=== PATIENT | male | born 1950 | race Caucasian/White ===

== ENCOUNTER → 2019-08-02 09:50 | Outpatient (CLI) | payer BC, SELFPAY ==
[2019-08-01 11:22] VITALS: BMI 37.2
[2019-08-02 12:14] LABS: Absolute Lymphocyte Count 2.91 X10^3/uL (0.83-4.51); Absolute Neutrophil Count 5.3 X10^3/uL (2.0-7.7); Basophil# 0.05 X10^3/uL; Basophil% 0.5 % (0-1); Eosinophil# 0.12 X10^3/uL; Eosinophils% 1.2 % (0-5); Hematocrit 46.9 % (40-54); Hemoglobin 15.9 g/dL (13.0-16.5); Lymphocyte # 2.91 X10^3/ul (4.0); Lymphocyte % 30.2 % (19-41); Mean Corp Hgb Conc 33.9 g/dL (32-36); Mean Corpuscular Hgb 31.3 pg (27.0-32.0); Mean Corpuscular Volume 92.3 fL (80-94); Mean Platelet Vol. 11.3 fl (6.2-12.0); Monocyte# 1.07 X10^3/uL; Monocyte% 11.1 % (0-10); NRBC Flagged by Analyzer 0 % (0-5); Neutrophil # 5.34 X10^3/uL (2.7-7.7); Neutrophil % 55.3 % (47-70); Platelet Count 327 K/mm3 (150-450); RBC Distribution Width CV 12.7 % (11.6-14.6); RBC Distribution Width SD 43.6 fl (35.1-43.9); Red Blood Count 5.08 M/mm3 (4.6-6.2); White Blood Count 9.7 K/mm3 (4.4-11.0)
[2019-08-02 12:47] LABS: AST(SGOT) 37 U/L (15-37); Alanine Aminotransfer ALT/SGPT 79 U/L (16-61); Albumin, Serum 3.6 g/dL (3.2-5.0); Alkaline Phosphatase 51 U/L (45-117); Anion Gap 6 (5-15); BUN 22 mg/dL (7-18); BUN/Creat Ratio 20.6 RATIO (10-20); Calcium,Total 8.5 mg/dL (8.5-10.1); Chloride 107 mmol/L (98-107); Cholesterol 168 mg/dL (200); Creatinine, Serum 1.07 mg/dL (0.70-1.30); EST Glomerular Filtration Rate 73 mL/min (>60); Est Glom Filt Rate - Afr Amer 88 mL/min (>60); Globulin 3.6 g/dL (2.2-4.2); Glucose 96 mg/dL (74-106); High Density Lipoprotein 48 mg/dL; PSA,Total - Annual Screen 1.67 ng/mL (0.00-4.00); Potassium 3.6 mmol/L (3.5-5.1); Protein, Total 7.2 g/dL (6.4-8.2); Sodium Level 138 mmol/L (136-145); Triglycerides 159 mg/dL; Very Low Density Lipoprotein 32 mg/dL (5-40)
== END ==
PROVIDERS: PCP Internal Medicine; Visit Provider Internal Medicine
DX: Z00.00 Encounter for general adult medical examination without abnormal findings (principal); I10 Essential (primary) hypertension
CPT/HCPCS: 36415; 80053; 80061; 84153; 85025; G0103

== ENCOUNTER → 2020-02-06 | Outpatient (CLI) | payer BC, SELFPAY ==
[2020-02-06 10:46] VITALS: BMI 37.2
[2020-02-06 15:52] LABS: BUN 14 mg/dL (7-18); Creatinine, Serum 1.08 mg/dL (0.70-1.30); EST Glomerular Filtration Rate 72 mL/min (>60); Glucose 87 mg/dL (74-106)
[2020-02-06 15:53] LABS: Anion Gap 7 (5-15); Calcium,Total 9.1 mg/dL (8.5-10.1); Chloride 104 mmol/L (98-107); Est Glom Filt Rate - Afr Amer 87 mL/min (>60); Potassium 4.1 mmol/L (3.5-5.1); Sodium Level 138 mmol/L (136-145)
== END | disposition home or self-care (01) ==
LOC: BIMLAB 11:43
PROVIDERS: PCP Internal Medicine; Referring Provider Internal Medicine; Visit Provider Internal Medicine
DX: I10 Essential (primary) hypertension (principal)
CPT/HCPCS: 36415; 80048

== ENCOUNTER → 2020-07-01 14:06 | Outpatient (CLI) | payer MEDICARE, SELFPAY ==
[2020-07-01 13:53] VITALS: BMI 37.2
--- NOTE | 2020-07-01 14:28 | RAD_ITS ---
STUDY: X-RAY - RIGHT ANKLE REASON FOR EXAM: Male, 70 years old. CHRONIC PAIN, GETTING WORSE RECENTLY, NKI TECHNIQUE: 3 view(s) of the ankle. COMPARISON: None. FINDINGS: There is evidence of a old avulsion fracture of the lateral and medial malleoli. Normal medial and lateral malleoli. Normal tibiotalar articulation and ankle mortise. A spur is seen at the insertion of the Achilles tendon. The visualized subtalar, talonavicular, calcaneocuboid and tarsal articulations are normal. The soft tissue structures are unremarkable. RAD/Ankle min 3 Views IMPRESSION: Old avulsion fractures involving the medial and lateral malleoli. Calcaneal spur. Electronically Signed: [place], at 15:53 EDT , Service support ,
[2020-07-01 17:10] LABS: Erythrocyte Sedimentation Rate 13 mm/hr (0-20)
[2020-07-01 17:20] LABS: Anion Gap 7 (5-15); BUN 19 mg/dL (7-18); BUN/Creat Ratio 15.1 RATIO (10-20); Chloride 105 mmol/L (98-107); Creatinine, Serum 1.26 mg/dL (0.70-1.30); EST Glomerular Filtration Rate 60 mL/min (>60); Est Glom Filt Rate - Afr Amer 73 mL/min (>60); Glucose 120 mg/dL (74-106); Rheumatoid Factor < 10.0 IU/mL (<15); Sodium Level 140 mmol/L (136-145)
== END ==
PROVIDERS: PCP Internal Medicine; Referring Provider Internal Medicine; Visit Provider Internal Medicine
DX: M19.90 Unspecified osteoarthritis, unspecified site (principal); I10 Essential (primary) hypertension
CPT/HCPCS: 36415; 73610; 80048; 85652; 86140; 86431

== ENCOUNTER → 2020-08-01 | Outpatient (CLI) | payer MEDICARE, SELFPAY ==
[2020-07-01 13:53] VITALS: BMI 37.2
--- NOTE | 2020-08-01 | LES_PTH ---
PATIENT: BEBA GOLDSMITH LOC: [facility] U#:[id number] AGE/SX: 70/M ROOM: RE08/01/[address]: Dr. Desean Arboleda MD : 1950 BED: DIS: 08/01/2020 SPEC #: [id number] RECD: 08/01/20 15:04 STATUS: CJ PAMELA #: [id number] CHOLO: 08/01/20 00:[address]: Desean Arboleda DEPT: SURGICAL PATHOLOGY RECD BY: Raúl Kaur ENTERED: 08/02/20 12:40 SP TYPE: Lesion OTHR DR: Dr. Cate Sapp MD Tissues: Skin of eyelid, NOS Procedures: Surgery Specimen Level IV HEADER OPERATION: RUL lesion PRE-OP DIAGNOSIS: Right upper eyelid lesion TISSUE SUBMITTED: Right upper eyelid lesion MICROSCOPIC DIAGNOSIS Lesion of right upper eyelid, biopsy: Polypoid seborrheic keratosis, inflamed. Focal actinic change. AM:tamara 08/05/20 MICROSCOPIC DESCRIPTION Slides are reviewed. GROSS DESCRIPTION Received in fixative is one container labeled with the patient's name and designated RUL. The specimen consists of a piece of arteaga-white skin measuring 0.9 x 0.4 x 0.1 cm. Also present in the container is a piece of arteaga-white skin measuring 0.3 x 0.3 x 0.1 cm. The larger piece is inked. The entire specimen is submitted in one cassette. / JOSH:tamara 08/02/20 TC:5 CPT: 08852
== END | disposition home or self-care (01) ==
LOC: LABSPEC 15:12
PROVIDERS: PCP Internal Medicine; Referring Provider Ophthalmology; Visit Provider Ophthalmology
DX: L82.0 Inflamed seborrheic keratosis (principal)
CPT/HCPCS: 88305

== ENCOUNTER → 2020-08-14 14:15 | Outpatient (CLI) | payer BC, SELFPAY ==
[2020-08-14 13:20] VITALS: BMI 37.2
--- NOTE | 2020-08-14 14:43 | RAD_ITS ---
STUDY: X-RAY - RIGHT HAND, ATTENTION THIRD FINGER REASON FOR EXAM: Male, 70 years old. SWELLING RT MIDDLE PIP JOINT, USED TO BE PAINFUL BUT PAIN RESOLVED, STILL SWELLING MAKING IT DIFFICULT TO RECREATIONAL THERAPIST TECHNIQUE: 3 view(s) of the finger were obtained. COMPARISON: None. FINDINGS: Normal metacarpal head. Normal metacarpophalangeal joint. Normal proximal phalanx. Normal middle phalanx. Normal distal phalanx. There is severe degenerative arthrosis of the proximal interphalangeal joint. There is moderate degenerative arthrosis of the distal interphalangeal joint.p There is nonspecific soft tissue swelling. RAD/Finger(s) Min 2 Views IMPRESSION: Degenerative arthrosis of the PIP and DIP joints. No demonstrated fracture, dislocation, or destructive osseous lesion. Electronically Signed: Mike Zamora MD at 3:23 EDT , Service support ,
[2020-08-14 15:40] LABS: Absolute Lymphocyte Count 1.64 X10^3/uL (0.83-4.51); Absolute Neutrophil Count 5.2 X10^3/uL (2.0-7.7); Basophil# 0.04 X10^3/uL; Basophil% 0.5 % (0-1); Eosinophil# 0.14 X10^3/uL; Eosinophils% 1.8 % (0-5); Hematocrit 43.6 % (40-54); Hemoglobin 14.5 g/dL (13.0-16.5); Lymphocyte # 1.64 X10^3/ul (4.0); Lymphocyte % 20.5 % (19-41); Mean Corp Hgb Conc 33.3 g/dL (32-36); Mean Corpuscular Hgb 31.2 pg (27.0-32.0); Mean Corpuscular Volume 93.8 fL (80-94); Mean Platelet Vol. 11.9 fl (6.2-12.0); Monocyte# 0.94 X10^3/uL; Monocyte% 11.8 % (0-10); NRBC Flagged by Analyzer 0 % (0-5); Neutrophil # 5.19 X10^3/uL (2.7-7.7); Neutrophil % 64.9 % (47-70); Platelet Count 287 K/mm3 (150-450); RBC Distribution Width CV 13.4 % (11.6-14.6); RBC Distribution Width SD 45.6 fl (35.1-43.9); Red Blood Count 4.65 M/mm3 (4.6-6.2)
[2020-08-14 16:34] LABS: AST(SGOT) 29 U/L (15-37); Alanine Aminotransfer ALT/SGPT 39 U/L (16-61); Albumin, Serum 3.8 g/dL (3.2-5.0); Alkaline Phosphatase 50 U/L (45-117); Bilirubin, Direct 0.18 mg/dL (0.00-0.30); Cholesterol 186 mg/dL (200); Globulin 3.6 g/dL (2.2-4.2); High Density Lipoprotein 54 mg/dL; PSA,Total - Annual Screen 2.18 ng/mL (0.00-4.00); Protein, Total 7.4 g/dL (6.4-8.2); Triglycerides 220 mg/dL; Very Low Density Lipoprotein 44 mg/dL (5-40)
== END ==
PROVIDERS: PCP Internal Medicine; Referring Provider Internal Medicine; Visit Provider Internal Medicine
DX: Z00.00 Encounter for general adult medical examination without abnormal findings (principal); M79.89 Other specified soft tissue disorders; I10 Essential (primary) hypertension; M19.90 Unspecified osteoarthritis, unspecified site
CPT/HCPCS: 36415; 73140; 80061; 80076; 84153; 85025; G0103

== ENCOUNTER → 2020-11-13 14:35 | Outpatient (CLI) | payer BC, SELFPAY ==
--- NOTE | 2020-11-13 14:36 | RAD_ITS ---
STUDY: X-RAY - RIGHT KNEE REASON FOR EXAM: Male, 70 years old. bilateral knee pain TECHNIQUE: 4 view(s) of the knee. Weight-bearing COMPARISON: None. FINDINGS: Normal visualized distal femur. Normal visualized proximal tibia and fibula. Normal proximal tibiofibular articulation. There is mild degenerative arthrosis of the medial femorotibial compartment. There is mild degenerative arthrosis of the lateral femorotibial compartment. There is mild degenerative arthrosis of the patellofemoral articulation. There is no demonstrated joint effusion. Moderate medial compartment joint space height loss The soft tissue structures are unremarkable. RAD/Knee 4 or More Views IMPRESSION: Degenerative arthrosis. Electronically Signed: Zach Ling DO at 10:41 EST Tel , Service support ,
--- NOTE | 2020-11-13 14:36 | RAD_ITS ---
STUDY: X-RAY - RIGHT SHOULDER REASON FOR EXAM: Male, 70 years old. pain in right shoulder TECHNIQUE: 4 view(s) of the shoulder. COMPARISON: None. FINDINGS: Normal glenohumeral articulation. There is degenerative arthrosis of the acromioclavicular joint without inferior osseous spur formation. Normal acromion. Normal humeral head and visualized proximal humerus. The soft tissue structures are unremarkable. Normal visualized pulmonary apex. RAD/Shoulder min 2 Views IMPRESSION: Mild AC joint degenerative changes Electronically Signed: Zach Ling DO at 9:25 EST Tel , Service support ,
--- NOTE | 2020-11-13 14:40 | RAD_ITS ---
STUDY: X-RAY - LEFT KNEE REASON FOR EXAM: Male, 70 years old. bilateral knee pain TECHNIQUE: 4 view(s) of the knee. Weight-bearing COMPARISON: None. FINDINGS: Normal visualized distal femur. Normal visualized proximal tibia and fibula. Normal proximal tibiofibular articulation. There is moderate degenerative arthrosis of the medial femorotibial compartment with moderate joint space narrowing. There is moderate degenerative arthrosis of the lateral femorotibial compartment with moderate joint space narrowing. There is mild degenerative arthrosis of the patellofemoral articulation. There is no demonstrated joint effusion. Moderate medial compartment joint space height loss The soft tissue structures are unremarkable. RAD/Knee 4 or More Views IMPRESSION: Degenerative arthrosis. Electronically Signed: Zach Ling DO at 9:27 EST Tel , Service support ,
== END ==
PROVIDERS: PCP Internal Medicine; Referring Provider Internal Medicine; Visit Provider Internal Medicine
DX: M25.561 Pain in right knee (principal); M25.562 Pain in left knee; M25.511 Pain in right shoulder
CPT/HCPCS: 73030; 73564

== ENCOUNTER 2021-01-20 16:54 | Outpatient (RCR) | payer MEDICARE, SELFPAY ==
[2020-11-29 11:16] VITALS: BMI 36.9
== END 2021-01-20 23:59 ==
LOC: IMMUN 16:54
PROVIDERS: PCP Internal Medicine; Referring Provider Family Medicine; Visit Provider Family Medicine
DX: Z23 Encounter for immunization (principal)
CPT/HCPCS: 0011A; 0012A

== ENCOUNTER → 2021-05-12 14:33 | Outpatient (CLI) | payer BC, SELFPAY ==
[2021-05-12 13:23] VITALS: BMI 36.9
[2021-05-12 17:28] LABS: Anion Gap 10 (5-15); BUN 22 mg/dL (7-18); BUN/Creat Ratio 14.2 RATIO (10-20); Calcium,Total 9.1 mg/dL (8.5-10.1); Chloride 104 mmol/L (98-107); Creatinine, Serum 1.55 mg/dL (0.70-1.30); EST Glomerular Filtration Rate 47 mL/min (>60); Est Glom Filt Rate - Afr Amer 57 mL/min (>60); Glucose 94 mg/dL (74-106); Sodium Level 139 mmol/L (136-145)
== END ==
PROVIDERS: PCP Internal Medicine; Visit Provider Internal Medicine
DX: I10 Essential (primary) hypertension (principal)
CPT/HCPCS: 36415; 80048

== ENCOUNTER → 2021-06-09 11:55 | Outpatient (CLI) | payer BC, SELFPAY ==
[2021-05-12 13:23] VITALS: BMI 36.9
[2021-06-09 15:39] LABS: Anion Gap 5 (5-15); BUN 18 mg/dL (7-18); BUN/Creat Ratio 16.2 RATIO (10-20); Calcium,Total 8.9 mg/dL (8.5-10.1); Chloride 107 mmol/L (98-107); Creatinine, Serum 1.11 mg/dL (0.70-1.30); EST Glomerular Filtration Rate 70 mL/min (>60); Est Glom Filt Rate - Afr Amer 84 mL/min (>60); Glucose 99 mg/dL (74-106); Potassium 3.9 mmol/L (3.5-5.1); Sodium Level 138 mmol/L (136-145)
== END ==
PROVIDERS: PCP Internal Medicine; Visit Provider Internal Medicine
DX: I10 Essential (primary) hypertension (principal); N17.9 Acute kidney failure, unspecified
CPT/HCPCS: 36415; 80048

== ENCOUNTER 2021-12-29 15:32 | Outpatient (CLI) | payer MEDICARE, SELFPAY ==
[2021-12-29 16:56] LABS: Absolute Lymphocyte Count 2.22 X10^3/uL (0.83-4.51); Absolute Neutrophil Count 4.7 X10^3/uL (2.0-7.7); Basophil# 0.05 X10^3/uL; Basophil% 0.6 % (0-1); Eosinophil# 0.38 X10^3/uL; Eosinophils% 4.5 % (0-5); Hematocrit 41.6 % (40-54); Hemoglobin 13.9 g/dL (13.0-16.5); Lymphocyte # 2.22 X10^3/ul (0.83-4.51); Lymphocyte % 26.5 % (19-41); Mean Corp Hgb Conc 33.4 g/dL (32-36); Mean Corpuscular Hgb 30.7 pg (27.0-32.0); Mean Corpuscular Volume 91.8 fL (80-94); Mean Platelet Vol. 12.3 fl (6.2-12.0); Monocyte# 0.99 X10^3/uL; Monocyte% 11.8 % (0-10); NRBC Flagged by Analyzer 0 % (0-5); Neutrophil # 4.71 X10^3/uL (2.7-7.7); Neutrophil % 56.4 % (47-70); Platelet Count 275 K/mm3 (150-450); RBC Distribution Width CV 13.1 % (11.6-14.6); RBC Distribution Width SD 44.8 fl (35.1-43.9); Red Blood Count 4.53 M/mm3 (4.6-6.2); White Blood Count 8.4 K/mm3 (4.4-11.0)
[2021-12-29 17:01] LABS: ALB/GLOB Ratio 1.1 RATIO (0.9-2.4); AST(SGOT) 25 U/L (15-37); Alanine Aminotransfer ALT/SGPT 37 U/L (16-61); Albumin, Serum 3.9 g/dL (3.2-5.0); Alkaline Phosphatase 57 U/L (45-117); Anion Gap 6 (5-15); BUN 18 mg/dL (7-18); BUN/Creat Ratio 18.3 RATIO (10-20); Calcium,Total 8.9 mg/dL (8.5-10.1); Chloride 106 mmol/L (98-107); Cholesterol 150 mg/dL (200); Creatinine, Serum 0.98 mg/dL (0.70-1.30); EST Glomerular Filtration Rate 80 mL/min (>60); Est Glom Filt Rate - Afr Amer 97 mL/min (>60); Globulin 3.5 g/dL (2.2-4.2); Glucose 94 mg/dL (74-106); High Density Lipoprotein 44 mg/dL; Potassium 3.7 mmol/L (3.5-5.1); Protein, Total 7.4 g/dL (6.4-8.2); Sodium Level 138 mmol/L (136-145); Triglycerides 110 mg/dL; Very Low Density Lipoprotein 22 mg/dL (5-40)
== END 2021-12-29 23:59 | disposition home or self-care (01) ==
PROVIDERS: PCP Internal Medicine; Referring Provider Internal Medicine; Visit Provider Internal Medicine
DX: I10 Essential (primary) hypertension (principal)
CPT/HCPCS: 36415; 80053; 80061; 85025

== ENCOUNTER → 2022-06-29 | Outpatient (CLI) | payer MEDICARE, SELFPAY ==
[2022-06-29 16:57] LABS: Anion Gap 7 (5-15); BUN 18 mg/dL (7-18); Calcium,Total 8.8 mg/dL (8.5-10.1); Chloride 108 mmol/L (98-107); Creatinine, Serum 1.06 mg/dL (0.70-1.30); EST Glomerular Filtration Rate 73 mL/min (>60); Est Glom Filt Rate - Afr Amer 89 mL/min (>60); Glucose 97 mg/dL (74-106); Potassium 3.8 mmol/L (3.5-5.1); Sodium Level 141 mmol/L (136-145)
== END | disposition home or self-care (01) ==
LOC: BIMLAB 14:01
PROVIDERS: PCP Internal Medicine; Referring Provider Internal Medicine; Visit Provider Internal Medicine
DX: I10 Essential (primary) hypertension (principal)
CPT/HCPCS: 36415; 80048

== ENCOUNTER → 2023-06-30 | Outpatient (CLI) | payer MEDICARE, SELFPAY ==
[2023-06-30 16:27] LABS: Absolute Neutrophil Count 4.9 X10^3/uL (2.0-7.7); Basophil# 0.04 X10^3/uL; Basophil% 0.5 % (0-1); Eosinophil# 0.16 X10^3/uL; Hematocrit 44.2 % (40-54); Hemoglobin 14.7 g/dL (13.0-16.5); Lymphocyte % 23.6 % (19-41); Mean Corp Hgb Conc 33.3 g/dL (32-36); Mean Corpuscular Hgb 31.6 pg (27.0-32.0); Mean Corpuscular Volume 95.1 fL (80-94); Monocyte# 0.99 X10^3/uL; Monocyte% 12.3 % (0-10); NRBC Flagged by Analyzer 0 % (0-5); Platelet Count 264 K/mm3 (150-450); RBC Distribution Width CV 13.4 % (11.6-14.6); RBC Distribution Width SD 47.1 fl (35.1-43.9); Red Blood Count 4.65 M/mm3 (4.6-6.2)
[2023-06-30 16:49] LABS: AST(SGOT) 30 U/L (15-37); Alanine Aminotransfer ALT/SGPT 49 U/L (16-61); Albumin, Serum 3.6 g/dL (3.2-5.0); Alkaline Phosphatase 53 U/L (45-117); Anion Gap 7 (5-15); BUN 17 mg/dL (7-18); BUN/Creat Ratio 14.4 RATIO (10-20); Calcium,Total 9.2 mg/dL (8.5-10.1); Chloride 107 mmol/L (98-107); Cholesterol 184 mg/dL (200); Creatinine, Serum 1.18 mg/dL (0.70-1.30); EST Glomerular Filtration Rate 64 mL/min (>60); Est Glom Filt Rate - Afr Amer 78 mL/min (>60); Globulin 3.7 g/dL (2.2-4.2); Glucose 110 mg/dL (74-106); High Density Lipoprotein 53 mg/dL; PSA,Total - Annual Screen 5.07 ng/mL (0.00-4.00); Potassium 3.8 mmol/L (3.5-5.1); Protein, Total 7.3 g/dL (6.4-8.2); Sodium Level 140 mmol/L (136-145); Triglycerides 277 mg/dL; Very Low Density Lipoprotein 55 mg/dL (5-40)
== END | disposition home or self-care (01) ==
LOC: BIMLAB 15:10
PROVIDERS: PCP Internal Medicine; Referring Provider Internal Medicine; Visit Provider Internal Medicine
DX: I10 Essential (primary) hypertension (principal); R35.1 Nocturia
CPT/HCPCS: 36415; 80053; 80061; 84153; 85025; G0103

== ENCOUNTER → 2023-07-08 | Outpatient (CLI) | payer MEDICARE, SELFPAY ==
--- NOTE | 2023-07-08 14:26 | STRESSREP ---
Stress Test Report Pharmacologic/Lexiscan sestamibi myocardial perfusion stress test. Indication; 73-year-old patient with abnormal EKG showing evidence of right bundle branch block. Patient had history of osteoarthritis Hypertension has been on medical treatment with JUAN inhibitor lisinopril. Has a previous evaluation by stress echocardiogram 20 years ago Lexiscan sestamibi to evaluate for myocardial ischemia. Stress protocol: Resting EKG demonstrates. Normal sinus rhythm. Right bundle branch block. Nonspecific T wave inversion noted in the anterior lead V2 V3. 0.4 mg of regadenoson was infused per usual protocol followed by rapid intravenous saline flush injection continuous EKG monitoring was performed. The maximum heart rate attained was 82 bpm which was 55% of maximum predicted heart . Stress EKG showed[, no significant change from the resting EKG, with maximum heart rate of 82 bpm. Arrhythmia: Single episode of PVC Symptoms: Patient had no symptoms of chest pain Blood pressure at rest: 138/64 mmHg blood pressure at the end of stress: 148/62 mmHg Myocardial perfusion protocol. 14.7 mCi ]of Technetium 99m Sestamibi was injected at rest. [ 0.4 mg ]of Regadenoson was infused per usual protocol peak infusion 45 mCi ]of Technetium 99m sestamibi was injected. Stress images were obtained stress and rest images were reconstructed and compared in the short axis vertical and horizontal long axis. Gated images were also obtained Perfusion SPECT analysis: Review of the images demonstrate normal uptake of sestamibi at rest, post stress images demonstrate similar uptake of sestamibi to the resting images, homogeneous tracer uptake With no evidence of reversible myocardial ischemia. Inferior attenuation artifact is noted. Gated SPECT analysis: The gated ejection fraction is 66%. Delete that Normal left ventricular wall motion and normal LV systolic function Conclusion: Negative Lexiscan sestamibi myocardial perfusion study for reversible myocardial ischemia Normal LV systolic function. Vipin Villegas MD,FACC,[facility]
== END | disposition home or self-care (01) ==
LOC: CVS 06:07
PROVIDERS: PCP Internal Medicine; Referring Provider Internal Medicine; Visit Provider Internal Medicine
DX: R94.31 Abnormal electrocardiogram [ECG] [EKG] (principal)
CPT/HCPCS: 78452; 93017; A9500; A4216; J2785

== ENCOUNTER → 2023-09-21 | Outpatient (CLI) | payer MEDICARE, SELFPAY ==
[2023-09-23 13:07] LABS: PSA, Free 0.56 ng/mL; PSA, Free % 29.6 % (.)
== END | disposition home or self-care (01) ==
LOC: LAB 14:17
PROVIDERS: PCP Internal Medicine; Referring Provider Nurse Practitioner; Visit Provider Nurse Practitioner
DX: R97.20 Elevated prostate specific antigen [PSA] (principal)
CPT/HCPCS: 36415; 84153; 84154

== ENCOUNTER → 2024-04-06 | Outpatient (CLI) | payer MEDICARE, SELFPAY ==
[2024-04-06 16:54] LABS: Anion Gap 6 (5-15); BUN 23 mg/dL (7-18); BUN/Creat Ratio 19.5 RATIO (10-20); Calcium,Total 9.2 mg/dL (8.5-10.1); Chloride 108 mmol/L (98-107); Creatinine, Serum 1.18 mg/dL (0.70-1.30); EST Glomerular Filtration Rate 64 mL/min (>60); Est Glom Filt Rate - Afr Amer 78 mL/min (>60); Glucose 98 mg/dL (74-106); Potassium 4.1 mmol/L (3.5-5.1); Sodium Level 140 mmol/L (136-145)
== END | disposition home or self-care (01) ==
LOC: BIMLAB 15:12
PROVIDERS: PCP Internal Medicine; Visit Provider Internal Medicine
DX: I10 Essential (primary) hypertension (principal)
CPT/HCPCS: 36415; 80048

== ENCOUNTER → 2024-10-09 | Outpatient (CLI) | payer MEDICARE, SELFPAY ==
[2024-10-09 15:27] LABS: Absolute Lymphocyte Count 1.79 X10^3/uL (0.83-4.51); Absolute Neutrophil Count 5.7 X10^3/uL (2.0-7.7); Basophil# 0.04 X10^3/uL; Basophil% 0.5 % (0-1); Eosinophil# 0.15 X10^3/uL; Eosinophils% 1.7 % (0-5); Hematocrit 44.6 % (40-54); Hemoglobin 15.3 g/dL (13.0-16.5); Lymphocyte # 1.79 X10^3/ul (0.83-4.51); Lymphocyte % 20.7 % (19-41); Mean Corp Hgb Conc 34.3 g/dL (32-36); Mean Corpuscular Hgb 31.7 pg (27.0-32.0); Mean Corpuscular Volume 92.3 fL (80-94); Mean Platelet Vol. 11.9 fl (6.2-12.0); Monocyte# 0.89 X10^3/uL; Monocyte% 10.3 % (0-10); NRBC Flagged by Analyzer 0 % (0-5); Neutrophil # 5.74 X10^3/uL (2.7-7.7); Neutrophil % 66.5 % (47-70); Platelet Count 266 K/mm3 (150-450); RBC Distribution Width CV 12.7 % (11.6-14.6); RBC Distribution Width SD 43.3 fl (35.1-43.9); Red Blood Count 4.83 M/mm3 (4.6-6.2); White Blood Count 8.6 K/mm3 (4.4-11.0)
[2024-10-09 15:49] LABS: ALB/GLOB Ratio 1.1 RATIO (0.9-2.4); AST(SGOT) 29 U/L (15-37); Alanine Aminotransfer ALT/SGPT 41 U/L (16-61); Albumin, Serum 3.8 g/dL (3.2-5.0); Alkaline Phosphatase 51 U/L (45-117); Anion Gap 5 (5-15); BUN 20 mg/dL (7-18); BUN/Creat Ratio 16.7 RATIO (10-20); Calcium,Total 8.9 mg/dL (8.5-10.1); Chloride 106 mmol/L (98-107); Cholesterol 188 mg/dL (200); EST Glomerular Filtration Rate 63 mL/min (>60); Est Glom Filt Rate - Afr Amer 76 mL/min (>60); Globulin 3.5 g/dL (2.2-4.2); Glucose 119 mg/dL (74-106); High Density Lipoprotein 62 mg/dL; PSA,Total - Annual Screen 3.82 ng/mL (0.00-4.00); Potassium 3.7 mmol/L (3.5-5.1); Protein, Total 7.3 g/dL (6.4-8.2); Sodium Level 137 mmol/L (136-145); Triglycerides 225 mg/dL; Very Low Density Lipoprotein 45 mg/dL (5-40)
== END | disposition home or self-care (01) ==
LOC: BIMLAB 14:13
PROVIDERS: PCP Internal Medicine; Visit Provider Internal Medicine
DX: I10 Essential (primary) hypertension (principal); N40.0 Benign prostatic hyperplasia without lower urinary tract symptoms; Z12.5 Encounter for screening for malignant neoplasm of prostate
CPT/HCPCS: 36415; 80053; 80061; 84153; 85025; G0103

== ENCOUNTER → 2024-12-04 | Outpatient (CLI) | payer MEDICARE, SELFPAY | END | disposition home or self-care (01) | LOC: MTLAB 15:55 | PROVIDERS: PCP Internal Medicine; Referring Provider Orthopaedic Surgery; Visit Provider Orthopaedic Surgery | DX: M25.50 Pain in unspecified joint (principal) | CPT/HCPCS: 36415; 84550 ==

== ENCOUNTER → 2025-01-29 | Outpatient (CLI) | payer MEDICARE, SELFPAY ==
[2025-01-29 16:47] LABS: Absolute Lymphocyte Count 1.93 X10^3/uL (0.83-4.51); Absolute Neutrophil Count 5.2 X10^3/uL (2.0-7.7); Basophil# 0.03 X10^3/uL; Basophil% 0.4 % (0-1); Eosinophil# 0.14 X10^3/uL; Eosinophils% 1.7 % (0-5); Hematocrit 39.3 % (40-54); Hemoglobin 13.1 g/dL (13.0-16.5); Lymphocyte # 1.93 X10^3/ul (0.83-4.51); Lymphocyte % 22.9 % (19-41); Mean Corp Hgb Conc 33.3 g/dL (32-36); Mean Corpuscular Volume 89.9 fL (80-94); Monocyte# 1.05 X10^3/uL; Monocyte% 12.4 % (0-10); NRBC Flagged by Analyzer 0 % (0-5); Neutrophil # 5.21 X10^3/uL (2.7-7.7); Neutrophil % 61.7 % (47-70); Platelet Count 477 K/mm3 (150-450); RBC Distribution Width CV 13.2 % (11.6-14.6); RBC Distribution Width SD 43.9 fl (35.1-43.9); Red Blood Count 4.37 M/mm3 (4.6-6.2); White Blood Count 8.4 K/mm3 (4.4-11.0)
[2025-01-29 19:58] LABS: ALB/GLOB Ratio 1.2 RATIO (0.9-2.4); AST(SGOT) 29 U/L (<=37); Alanine Aminotransfer ALT/SGPT 39 U/L (<=46); Alkaline Phosphatase 54 U/L (40-129); Anion Gap 14 (5-15); BUN 17 mg/dL (4-19); BUN/Creat Ratio 15.3 RATIO (10-20); Calcium,Total 9.5 mg/dL (7.6-11.0); Carbon Dioxide 21.2 mmol/L (21.0-32.0); Chloride 103 mmol/L (98-108); EST Glomerular Filtration Rate 71 (>60); Globulin 3.3 g/dL (2.2-4.2); Glucose 103 mg/dL (70-99); Potassium 4.1 mmol/L (3.3-5.1); Protein, Total 7.3 g/dL (5.9-8.4); Sodium Level 138 mmol/L (133-145); Total Bilirubin 0.29 mg/dL (0.00-1.30)
== END | disposition home or self-care (01) ==
LOC: BIMLAB 14:54
PROVIDERS: PCP Internal Medicine; Referring Provider Internal Medicine; Visit Provider Internal Medicine
DX: Z01.818 Encounter for other preprocedural examination (principal); M10.9 Gout, unspecified
CPT/HCPCS: 36415; 80053; 84550; 85025

== ENCOUNTER → 2025-02-05 | Outpatient (CLI) | payer MEDICARE, SELFPAY ==
--- NOTE | 2025-02-05 12:22 | CT_ITS ---
PROCEDURE: EXTREMITY LOWER WITHOUT CONTRA 02/05/2025 REASON FOR EXAM: TEMPLATING FOR RIGHT TKA TECHNIQUE: Axial extremity without intravenous contrast. Coronal and Sagittal reconstruction series were provided. CONTRAST: No contrast. One or more dose reduction techniques were used (e.g., Automated exposure control, adjustment of the mA and/or kV according to patient size, use of iterative reconstruction technique). RADIATION DOSE SUMMARY: CTDlvol: 14 mGy DLP: 1378.57 mGycm COMPARISON: None. FINDINGS: Bones: No evidence of fracture. Joints: Imaging of the right hip joint was obtained. Mild joint space narrowing. Imaging of the right knee was obtained. Marked degree of joint space narrowing with degenerative spurring of the medial femoral condyle and medial tibial plateau with sub cortical cystic changes. Moderate degree of joint space narrowing of the patellofemoral joint with degenerative changes. Soft Tissues: Minimal joint effusion. CT/Extremity Lower without Contra IMPRESSION: Marked degree of joint space narrowing and osteoarthritis of the medial knee teodora int with subchondral cystic changes and degenerative spur formation. Reading Location: [place] [id number]
== END | disposition home or self-care (01) ==
LOC: CT 12:21
PROVIDERS: PCP Internal Medicine; Referring Provider Orthopaedic Surgery; Visit Provider Orthopaedic Surgery
DX: M17.11 Unilateral primary osteoarthritis, right knee (principal)
CPT/HCPCS: 73700

== ENCOUNTER → 2025-02-22 | Outpatient (CLI) | payer MEDICARE, SELFPAY ==
[2025-02-22 16:54] LABS: Uric Acid 7.9 mg/dL (3.5-7.2)
[2025-02-22 17:09] LABS: International Normalized Ratio 1.1; Prothrombin Time (Protime)PT. 14.3 SECONDS (11.7-14.9)
[2025-02-22 17:10] LABS: Partial Thromboplast Time 31.2 Seconds (24.1-36.2)
[2025-02-24 05:07] LABS: Fructosamine 229 umol/L (0-285)
== END | disposition home or self-care (01) ==
LOC: MTLAB 11:46
PROVIDERS: Nurse Practitioner Family; Student in an Organized Health Care Education/Training Program; PCP Internal Medicine; Referring Provider Orthopaedic Surgery; Visit Provider Orthopaedic Surgery
DX: Z01.818 Encounter for other preprocedural examination (principal); M25.561 Pain in right knee; M17.11 Unilateral primary osteoarthritis, right knee; M10.9 Gout, unspecified
CPT/HCPCS: 82985; 83036; 83735; 84550; 85610; 85730; 86850; 86900; 86901; 87081

== ENCOUNTER 2025-03-06 05:59 | Day surgery (SDC) | payer MEDICARE, SELFPAY ==
--- NOTE | 2025-02-06 15:41 | PAT.ANE_ITS ---
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 When Was Last Pacemaker Check QUESTION #4 FULL TEXT: You/Your Family Experience fever (hyperthermia) with Anesthesia Last Oral Intake Last Oral intake: Last Oral Intake NPO since Meds taken in AM with sips of water? Meds patient instructed to take am of surgery PONV PONV - technical services analyst: PONV - technical services analyst Female No 02/06/25 15:11 HX of Motion Sickness No 02/06/25 15:11 HX of N/V After Surgery No 02/06/25 15:11 Non-Smoker Yes 02/06/25 15:11 Duration of Surgery greater Yes 02/06/25 15:11 than 60 minutes Number of Risk Factors 2 02/06/25 15:11 PONV Score Moderate Risk 02/06/25 15:11 Height & Weight Height & Weight: Anesthesia: Height & Weight Height 5 ft 9 in 12/04/24 14:37 Respiratory Assessment Respiratory Assessment - technical services analyst: Respiratory Tract Infection Hx - technical services analyst Hx Respiratory Tract Infection No 02/06/25 15:11 STOP Sleep Apnea STOP Sleep Apnea - technical services analyst: STOP Sleep Apnea - technical services analyst Hx Hypertension Yes: CONTROLLED WITH MED 02/06/25 15:11 Hx Sleep Apnea No 02/06/25 15:11 CPAP BIPAP Do you snore loudly (louder Yes 02/06/25 15:11 than talking or can be heard Do you often feel tired/ No 02/06/25 15:11 fatigued/ sleepy during daytime? Has anyone observed you stop No 02/06/25 15:11 breathing during sleep? STOP Results Positive 02/06/25 15:11 QUESTION #5 FULL TEXT : Do you snore loudly (louder than talking or can be heard through closed doors)? 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 Specify any problems Hx of Preganancy in last 3 N/A 02/06/25 15:11 Months Nurse Filling Out Transfusion DSCHRIBER 02/06/25 15:11 & Questions: Date: 02/06/25 02/06/25 15:11 Time: 15:14 02/06/25 15:11 Patient unable to answer at this time (ie. confused, unrespo /Reproduction History /Reproductive History - technical services analyst: /Reproductive Hx- technical services analyst Hx Now No 02/06/25 15:11 Gestational Age (in weeks): EDC: Hx Hx Para Hx Section SAB No 02/06/25 15:11 [facility] Medical History (Updated 02/06/25 @ 15:25 by Diana Bailey) Loss of hearing Wears glasses Alcohol use History of steroid therapy Arthritis Gout High cholesterol Injury of head and neck History of ulceration Heartburn Non-smoker History of pain when walking History of edema History of stress test Elevated PSA BPH (benign prostatic hyperplasia) Bilateral primary osteoarthritis of knee ESTRELLA (acute kidney injury) benign growth on prostate History of squamous cell carcinoma History of basal cell carcinoma History of kidney stones Hypertension Arthritis Seasonal allergies Home Medications ?Medication ?Instructions ?Recorded ?Last Taken ?Type aspirin 81 mg tablet,delayed 81 mg PO DAILY 02/21/19 0 02/02/25 History release cetirizine 10 mg tablet (Zyrtec) 5 mg PO DAILY PRN all ergy symptoms 02/21/19 Unknown History multivitamin 1 cap PO DAILY 02/21/19 Unkn own History biotin 1 mg capsule 1 mg PO DAILY 06/29/22 Unkno wn History glucosamine-chondroitin 250 mg-200 2 tab PO BID 02/02/25 History mg tablet (Osteo Bi-Flex) lisinopril 20 2 tab PO DAILY #180 tabs Unknown Rx mg-hydrochlorothiazide 12.5 mg tablet doxazosin 4 mg tablet 4 mg PO BID 3 months #180 ta bs 09/04/24 Unknown Rx indomethacin 50 mg capsule 50 mg PO TID PRN Joint pain #90 01/26/25 Unknown Rx caps amlodipine 10 mg tablet 10 mg PO QHS 02/06/25 Unknow n History Allergy/AdvReac Type Severity Reaction Status Date / Time doxycycline Allergy Severe swelling Verified 02/06/25 15:02 latex Allergy Intermediate rash Verified 02/06/25 15:02 Family History Father Hypertension Brother Hypertension CVA (cerebral vascular accident) Mother Hypertension CVA (cerebral vascular accident) Grandmother Cancer Surgical History (Updated 02/06/25 @ 15:25 by Diana Bailey) Hx of colonoscopy Hx of wisdom tooth extraction History of bilateral cataract extraction Hx of tonsillectomy Social History Smoking Status: Never smoker alcohol intake: current alcohol intake frequency: a few times a month substance use type: does not use what type of physical activity do you participate in: walking frequency: daily Audit: Pertinent Findings Pertinent Findings EKG Perinent findings: SR with RBBB with left axis -bifasicular block Stress test pertinent findings: Stress test negative in 2022 Current Visit Impressions Current Visit Impressions: Internal medicine physician has cleared this patient, EKG changes are apparently consistent. They were evaluated with a stress test Recommendation Anesthesia Recommendation Anesthesia recommendation: OPTIMIZED for anesthesia
[2025-03-06] VITALS (8 sets, daily range): BP systolic 109–146; BP diastolic 46–60; PULSE 80–91; RESP 10–20; TEMP 36.2–36.9; O2SAT 94–98; BMI 32.6
[2025-03-06] MEDS: Acetaminophen 500 MG Tablet 1000 MG PO ×2 (06:48→14:39)
[2025-03-06] MEDS: Gabapentin 600 MG Tablet PO (06:48)
[2025-03-06] MEDS: Scopolamine 1mg/72hr Patch 1 PATCH TD (06:49)
[2025-03-06] MEDS: Celecoxib 200 MG Capsule 400 MG PO (06:49)
[2025-03-06 06:51] LABS: Bedside Glucose 166 mg/dL (74-106)
[2025-03-06] MEDS: 0.9% Normal Saline (1000mL) 1,000 ML 15 ML IV (06:54)
[2025-03-06] MEDS: Magnesium 1 GM over 15 mins IV (06:55)
--- NOTE | 2025-03-06 07:13 | PCM.HP.BLA ---
History and Physical Date of Admission: 03/06/25 [facility] [address] [place] [address] OFFICE VISIT Date of Service: 01/24/25 MR#: [id number] Acct: [id number] Name: BEBA GOLDSMITH Rep #: [id number] : 1950 Provider: Dr. Loyd Watters, DO Age/Sex: 74/M Location: [facility] [place] Status: Signed Intake Vital Signs 12/04/2513:37 Height 5 ft 9 in Weight: 250 lb 2 oz BMI 36.9 Intake Visit Reasons: BILATERAL KNEES Allergies doxycycline Allergy (Severe, Verified 01/24/25 12:57) swelling latex Allergy (Intermediate, Verified 01/24/25 12:57) rash Medications ?Medication ?Instructions ?Recorded ?Confirmed ?Type aspirin 81 mg tablet,delayed 81 mg PO DAILY 02/21/19 01/24/25 History release cetirizine 10 mg tablet (Zyrtec) 5 mg PO DAILY PRN 02/21/19 01/24/25 History glucosamine HCl 1,500 mg tablet 1,500 mg PO DAILY 02/21/19 01/24/25 History multivitamin 1 cap PO DAILY 02/21/19 01/24/25 History biotin 1 mg capsule 1 mg PO DAILY 06/29/22 01/24/25 History glucosamine-chondroitin 250 mg-200 2 tab PO BID 06/29/22 01/24/25 History mg tablet (Osteo Bi-Flex) lisinopril 20 2 tab PO DAILY #180 tabs 04/18/24 01/24/25 Rx mg-hydrochlorothiazide 12.5 mg tablet doxazosin 4 mg tablet 4 mg PO BID 3 months #180 tabs 09/04/24 01/24/25 Rx amlodipine 10 mg tablet 10 mg PO DAILY #90 tabs 10/03/24 01/24/25 Rx indomethacin 50 mg capsule 50 mg PO BID 12/04/24 01/24/25 History meloxicam 15 mg tablet 15 mg PO DAILY PRN pain #90 tabs 12/18/24 01/24/25 Rx Have you fallen in the past year?: No PFSH Medical History Elevated PSA BPH (benign prostatic hyperplasia) Abnormal EKG Flu vaccine need Osteoarthritis Bilateral primary osteoarthritis of knee Health care maintenance ESTRELLA (acute kidney injury) Hearing loss in right ear benign growth on prostate History of squamous cell carcinoma History of basal cell carcinoma History of kidney stones Hypertension History of pneumonia Gout Arthritis Seasonal allergies Surgical History History of bilateral cataract extraction Hx of tonsillectomy Family History Father HypertensionBrother Hypertension CVA (cerebral vascular accident)Mother Hypertension CVA (cerebral vascular accident)Grandmother Cancer Social History Smoking Status: Never smoker alcohol intake: current alcohol intake frequency: a few times a month substance use type: does not use what type of physical activity do you participate in: walking frequency: daily HPI BILATERAL KNEES Details: This documentation accurately reflects the service provided and the decisions made by me, Dr. Loyd Watters, DO 01/24/25 1000. Part of today?s visit was documented by Maame HULL, acting as scribe. BEBA GOLDSMITH is a 74 year old M here today for bilateral knee pain. He was having swelling in the left leg but that has came down now. He would like to discuss knee replacement as well. He would like to do both at the same time. The tenderness,swelling and redness in the left index finger has went away. He has been taking the indomethacin. He cannot state that 1 knee is worse than the other he does feel is affecting his quality of life he cannot walk in a grocery store without having significant discomfort. 12/04/2024:74 year old M here today for bilateral knees. Patient notes that he has had knee pain for about 5 years with his pain worsening recently. Patient complains of pain over his anterior knee. He denies any known injury. He states that he has bilateral leg swelling. He has popping and clicking in his knees which is a uncomfortable. He has knee instability. Patient is using a walker to ambulate. Patient notes that he is taking ibuprofen daily for pain. He denies any recent xrays, injections, bracing, or physical therapy. No fevers or chills. He does have a history of gout. He has stiffness of his left index finger with swelling and redness. He denies any recent injury although hurt himself with a nail gun over a year ago. He notes his pain started about 5 days ago. He does have indomethacin at home from prior gout attacks. Plan:Educated the patient about the anatomy of the knee and etiology of his pain. Spoke with him about having severe osteoarthritis of his bilateral knee. Explained his options- steroid injection, viscosupplementation injections, medrol dose mauricio, physical therapy, bracing, total knee arthroplasty. Recommended the patient get some lab work for uric acid as he likely is having a gout flare. Gave the patient a paper regarding the gout diet. If he has high uric acid, he will need to talk with his PCP about a possible medications including allopurinol. He may continue to take the indomethacin in addition to the Medrol Dosepak. If he has knee injections, he would be unable to have a total knee arthroplasty for 3 months. Spoke with him about the different bracing- knee sleeve vs a more supportive brace. Follow up on an as needed basis or sooner if pain, swelling, numbness or associated symptoms, or concerns develop. All questions answered. Patient in agreement of plan. 10/01/2021 visit:here today for continued bilateral knee pain. Patient states that he is doing better today due to a recent cataract surgery and limiting his activities. He states that he been very active and his pain has been increasing. He has an injection 11/29/20 which was helpful for until June. He has pain over his anterior knee. Patient has popping and clicking, and grinding. Patient would like to discuss repeat injection. Plan:Patient may get repeat injections every 3 months as needed. Spoke with him about viscosupplementation injections if he would like to try those. Explained that he may be a candidate for a total knee arthroplasty if the injections stop being helpful. Patient may take an anti-inflammatory the day and a few days following a day where he is doing many activities. Bilateral knee steroid injection given. Ortho Exam General General: Yes no acute distress and Yes well groomed Neurologic: Yes alert and Yes oriented x3 Psychologic: Yes reasonable and appropriate Right Knee Skin/Wound: Yes CDI, No erythema, No ecchymosis and No swelling Knee ROM: Yes ROM-Extension -20 to 0 and Yes ROM-Flexion 0-140 (112) Examination: No Med jt line tenderness, No Lat jt line tenderness, Yes Pain with flexion and No Pain with extention Stability: NML: Anterior Drawer, NML: Posterior Drawer, NML: Valgus 0, NML: Valgus 30 (3mm medial gapping), NML: Varus 0 and NML: Varus 30 Patella Translation: 1 Patella Grind: Yes KNEE: varus deformity- slight. Left Knee Skin/Wound: Yes CDI, No ecchymosis, No erythema and No swelling Knee ROM: Yes ROM-Extension -20 to 0 (-4) and Yes ROM-Flexion 0-140 (105) Examination: No med jt line tenderness and No Lat jt line tenderness Stability: NML: Valgus 0, NML: Valgus 30 (3mm medial gapping), NML: Varus 0 and NML: Varus 30 Patella Translation: 1 KNEE: prominant tibial tubercle bilateral Head: Normocephalic Atraumatic Chest: symmetrical rise, non-labored breathing, no audible wheeze Abdomen: no guarding, non-rigid Supplemental Info 12/04/2024 uric acid upper limit of normal 7.0 12/04/2024 x-ray left index finger: Punched-out lytic lesions(rat-bite erosions) multiple joints consistent with gout 12/04/2024 x-ray right knee: Advanced medial compartment osteoarthritis moderate patellofemoral 12/04/2024 x-ray left knee: advanced medial compartment osteoarthritis, mod/severe patellofemoral 11/13/2020 x-ray Right knee advanced medial compartment knee arthrosis, moderate to severe patellofemoral arthrosis 11/13/2020 xray left knee: Moderate patellofemoral arthrosis Moderate medial joint space narrowing and subchondral sclerosis Coding Level of Care Code Off vis,est,level 4 Diagnoses Primary osteoarthritis of left knee M17.12 Osteoarthritis type: primary Primary osteoarthritis of right knee M17.11 Osteoarthritis type: primary Gout M10.9 Gout site: knee Gout etiology: idiopathic Laterality: unspecified laterality Assessment and Plan Assessment and Plan (1) Left knee DJD: Status: Acute Qualifiers: Osteoarthritis type: primary Qualified Code(s): M17.12 - Unilateral primary osteoarthritis, left knee (2) Right knee DJD: Status: Acute Qualifiers: Osteoarthritis type: primary Qualified Code(s): M17.11 - Unilateral primary osteoarthritis, right knee (3) Gout: Status: Chronic Qualifiers: Gout site: knee Gout etiology: idiopathic Laterality: unspecified laterality Plan Patient is here today for continued bilateral knee pain. He would like to discuss knee replacement surgery, I counseled him a would not recommend doing bilateral knee replacements at the same time considering he has gout and oftentimes pain is much more significant in patients with gout. risks, benefits and alternatives of surgery reviewed including but not limited to bleeding, infection, nerve, artery and/or tissue damage, fracture, VTE, mechanical feel of the knee, continued pain, stiffness and expected post-operative course.?I spoke with patient that he will need to physical therapy after surgery. Patient should not take any NSAIDS, indomethacin, or tumeric 7 days prior surgery. He should stop taking the fish oil and other herbal supplements 3 weeks before surgery. He should try to avoid any dental work for 3 months after surgery. I informed patient about the Iovera procedure that we can do before surgery and he would like to proceed with the procedure if his insurance approves it. Patient also wishes to proceed with knee replacement for the right knee first he would like to do the iovera as well. Tentative surgery date February 20, 2025 same-day surgery Follow up for Iovera procedure or sooner if pain, swelling, numbness or associated symptoms, or concerns develop. All questions answered. Patient in agreement of plan. Clinical Quality Measures Falls Risk Screening/Assistive Devices Have you fallen in the past year?: No 01/24/25 1342 <Electronically signed by Loyd Watters DO> Date Loyd Watters DO I have examined the patient and the H&P has been reviewed. There are no clinical changes since date of exam.
--- NOTE | 2025-03-06 07:38 | PCM.PRE.AN2 ---
ASA Classification* ASA Classification ASA Classification: 2 (HTN) Assessment & Plan Anesthesia* Anesthesia Assessment Anesthesia Assessment: Discussed sedation and/or anesthesia options, risks, benefits, and alternatives with patient/parents/legal guardian/POA. Questions invited. The patient/parents/legal guardian/POA seems to understand and agrees to proceed with anesthesia plan. Reviewed the physical assessment, medical history, allergy history and patient home medications list prior to surgery/procedure/anesthetic and documented any changes. Performed airway and anesthesia risk assessments. Anesthesia Type Anesthesia Type: Spinal and Block History Source History Obtained from:: Patient Anesthesia Focused Assessment* Oxygen Delivery Method: Room Air Airway Assessment Mouth opens: 2 cm Mallampati Score: II Teeth Condition: Intact Neck Range of motion (ROM): Full ROM Focused Labs Anesthesia Preop lab: CBC WBC 8.4 K/mm3 (4.4-11.0) 01/29/25 14:55 01/29/25 RBC 4.37 M/mm3 (4.6-6.2) L 01/29/25 14:55 01/29/25 Hgb 13.1 g/dL (13.0-16.5) 01/29/25 14:55 01/29/25 Hct 39.3 % (40-54) L 01/29/25 14:55 01/29/25 Plt Count 477 K/mm3 (150-450) H 01/29/25 14:55 01/29/25 CHEMISTRY Potassium 4.1 mmol/L (3.3-5.1) 01/29/25 14:55 01/29/25 Sodium 138 mmol/L (133-145) 01/29/25 14:55 01/29/25 Magnesium 2.0 mg/dL (1.5-2.2) 02/22/25 11:49 02/22/25 BUN 17 mg/dL (4-19) 01/29/25 14:55 01/29/25 Creatinine 1.10 mg/dL (0.70-1.20) 01/29/25 14:55 01/29/25 Glucose 103 mg/dL (70-99) H 01/29/25 14:55 01/29/25 POC Glucose 166 mg/dL (74-106) H 03/06/25 06:32 03/06/25 COAG PT 14.3 SECONDS (11.7-14.9) 02/22/25 11:50 02/22/25 Pre-Assessment Diagnosis/Proposed Procedure Planned Operative Procedure(s): RIGHT TOTAL KNEE ARTHROPLASTY Anesthesia History 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 When Was Last Pacemaker Check QUESTION #4 FULL TEXT: You/Your Family Experience fever (hyperthermia) with Anesthesia Any additional information?: No Last Oral Intake Last Oral intake: Last Oral Intake NPO since 05:30 03/06/25 06:35 Meds taken in AM with sips of Yes 03/06/25 06:35 water? Meds patient instructed to allpopurinol 03/06/25 06:35 take am of surgery doxazosin Any additional information?: No PONV PONV - street roller engineer: PONV - street roller engineer Female No 02/06/25 15:11 HX of Motion Sickness No 02/06/25 15:11 HX of N/V After Surgery No 02/06/25 15:11 Non-Smoker Yes 02/06/25 15:11 Duration of Surgery greater Yes 02/06/25 15:11 than 60 minutes Number of Risk Factors 2 02/06/25 15:11 PONV Score Moderate Risk 02/06/25 15:11 Any additional information?: No Height & Weight Height & Weight: Anesthesia: Height & Weight Height 5 ft 9 in 03/06/25 06:35 Weight: 100.244 kg 03/06/25 06:35 Body Mass Index (BMI) 32.6 03/06/25 06:35 Respiratory Assessment Respiratory Assessment - street roller engineer: Respiratory Tract Infection Hx - street roller engineer Hx Respiratory Tract Infection No 02/06/25 15:11 Any additional information?: No STOP Sleep Apnea STOP Sleep Apnea - street roller engineer: STOP Sleep Apnea - street roller engineer Hx Hypertension Yes: CONTROLLED WITH MED 02/06/25 15:11 Hx Sleep Apnea No 02/06/25 15:11 CPAP BIPAP Do you snore loudly (louder Yes 02/06/25 15:11 than talking or can be heard Do you often feel tired/ No 02/06/25 15:11 fatigued/ sleepy during daytime? Has anyone observed you stop No 02/06/25 15:11 breathing during sleep? STOP Results Positive 02/06/25 15:11 QUESTION #5 FULL TEXT : Do you snore loudly (louder than talking or can be heard through closed doors)? 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 Specify any problems Hx of Preganancy in last 3 N/A 02/06/25 15:11 Months Nurse Filling Out Transfusion DSCHRIBER 02/06/25 15:11 & Questions: Date: 02/06/25 02/06/25 15:11 Time: 15:14 02/06/25 15:11 Patient unable to answer at this time (ie. confused, unrespo Any additional information?: No /Reproduction History /Reproductive History - street roller engineer: /Reproductive Hx- street roller engineer Hx Now No 02/06/25 15:11 Gestational Age (in weeks): EDC: Hx Hx Para Hx Section SAB No 02/06/25 15:11 Any additional information?: No Active Medications Active Medications: Current Medications Generic Name Dose Route Start Last Admin Trade Name Freq PRN Reason Stop Dose Admin Acetaminophen 1,000 mg 03/06/25 11:00 03/06/25 06:48 Acetaminophen 500 Mg Tablet PO 03/06/25 11:01 1,000 mg X1 ONE Administration Celecoxib 400 mg 03/06/25 11:00 03/06/25 06:49 Celecoxib 200 Mg Capsule PO 03/06/25 11:01 400 mg X1 ONE Administration Dexamethasone Sodium Phosphate 10 mg 03/06/25 11:00 Dexamethasone 10 Mg/Ml Vial IV 03/06/25 11:01 X1 ONE Gabapentin 600 mg 03/06/25 11:00 03/06/25 06:48 Gabapentin 600 Mg Tablet PO 03/06/25 11:01 600 mg X1 ONE Administration Cefazolin Sodium 2 gm/ N/A 20 mls @ 400 mls/hr 03/06/25 11:00 IV 03/06/25 11:02 PREOP ONE Tranexamic Acid 1,000 mg/ 110 mls @ 660 mls/hr 03/06/25 11:00 Sodium Chloride IV 03/06/25 11:09 X1 ONE Tranexamic Acid 1,000 mg/ 110 mls @ 660 mls/hr 03/06/25 11:00 Sodium Chloride IV 03/06/25 11:09 X1 ONE Lactated Ringer's 1,000 mls @ 125 mls/hr 03/06/25 11:00 IV 03/06/25 18:59 .Q8H ZORAIDA Magnesium Sulfate 1 gm/ 102 mls @ 408 mls/hr 03/06/25 11:00 03/06/25 06:55 Dextrose IV 03/06/25 11:14 408 mls/hr X1 ONE Administration Sodium Chloride 1,000 mls @ 15 mls/hr 03/06/25 06:10 03/06/25 06:54 IV 15 mls/hr .Q48H ZORAIDA Administration Insulin Human Lispro 1 - 6 unit 03/06/25 11:00 Insulin Lispro 100 Unit/Ml Insuln.Pen SC 03/06/25 18:00 Q4H PRN PRN BG>/= 180, SEE PROTOCOL Protocol Scopolamine HBr 1 patch 03/06/25 11:00 03/06/25 06:49 Scopolamine 1mg/72hr Patch TD 03/06/25 11:01 1 patch X1 ONE Administration PFSH Medical History (Updated 02/28/25 @ 15:[address] Cate Sapp MD) Bilateral foot pain Loss of hearing Wears glasses Alcohol use History of steroid therapy Arthritis Gout High cholesterol Injury of head and neck History of ulceration Heartburn Non-smoker History of pain when walking History of edema History of stress test Elevated PSA BPH (benign prostatic hyperplasia) Bilateral primary osteoarthritis of knee ESTRELLA (acute kidney injury) benign growth on prostate History of squamous cell carcinoma History of basal cell carcinoma History of kidney stones Hypertension Arthritis Seasonal allergies Home Medications ?Medication ?Instructions ?Recorded ?Last Taken ?Type lisinopril 20 2 tab PO DAILY #180 tabs 04/18/24 03/05/25 Rx mg-hydrochlorothiazide 12.5 mg tablet doxazosin 4 mg tablet 4 mg PO BID 3 months #180 tabs 09/04/24 03/06/25 Rx allopurinol 100 mg tablet 100 mg PO QDAY #30 tabs 02/07/25 03/06/25 Rx amlodipine 10 mg tablet 10 mg PO QHS #90 tabs 02/23/25 03/05/25 Rx meloxicam 15 mg tablet 15 mg PO DAILY PRN pain 03/06/25 02/27/25 History Allergy/AdvReac Type Severity Reaction Status Date / Time doxycycline Allergy Severe swelling Verified 02/28/25 14:42 latex Allergy Intermediate rash Verified 02/28/25 14:42 Family History Father Hypertension Brother Hypertension CVA (cerebral vascular accident) Mother Hypertension CVA (cerebral vascular accident) Grandmother Cancer no significant family history Surgical History Hx of colonoscopy Hx of wisdom tooth extraction History of bilateral cataract extraction Hx of tonsillectomy no surgical history Social History Smoking Status: Never smoker alcohol intake: current alcohol intake frequency: a few times a month substance use type: does not use what type of physical activity do you participate in: walking frequency: daily Prior Cardiac Testing/Procedures Prior Cardiac Testing/Procedures: Stress Test Review of Systems (Anesthesia) ROS Narrative System reviewed and no additional complaints, except as documented. Physical Exam Const alert, oriented x3 and average body habitus Orientation / Consciousness: awake HEENT dentition normal Neck full ROM Resp normal respiratory effort Auscultation: clear to auscultation bilaterally Cardio regular rate, regular rhythm and no murmurs Neuro oriented x3 and moves all extremities
--- NOTE | 2025-03-06 08:00 | KNEE_PTH ---
PATIENT: BEBA GOLDSMITH LOC: [facility] [place] U#:[id number] AGE/SX: 74/M ROOM: RE03/06/[address]: Dr. Loyd Watters DO : 1950 BED: DIS: 03/06/2025 SPEC #: [id number] RECD: 03/06/25 13:42 STATUS: CJ REYury #: [id number] CHOLO: 03/06/25 08:[address]: Loyd Watters DEPT: SURGICAL PATHOLOGY RECD BY: Timi Krishna ENTERED: 03/06/25 13:42 SP TYPE: TOTAL KNEE OTHR DR: Dr. Cate Sapp MD Tissues: A - Knee, NOS Procedures: Decalcification bone/plaque Surgery Specimen Level IV HEADER OPERATION: ERAS, right total knee replacement robotic arm assisted PRE-OP DIAGNOSIS: Right knee degenerative joint disease TISSUE SUBMITTED: A- Right knee bone MICROSCOPIC DIAGNOSIS A. Right knee, degenerative joint disease, arthroplasty: * Benign cartilage and bone with degenerative changes MICROSCOPIC DESCRIPTION Slides are reviewed. GROSS DESCRIPTION A. Received in formalin in a container labeled with the patient's name, date of , and right knee bone are multiple arteaga, firm, and irregular fragments of bone with minimal soft tissue measuring 10.5 x 8.5 x 4.3 cm in aggregate. The specimen consists of, but is not limited to, medial/lateral condyle and tibial plateau. The resection margins are smooth, and firm and the cortical surfaces are pitted and granular with smooth eburnation. Sectioning reveals firm surfaces. Media Marketing Coordinator sections submitted in A1 following decalcification. [facility] 03/09/2025 CPT:79433,83095
[2025-03-06] MEDS: Cefazolin 2 GM in Syringe 10 ML IV ×2 (08:12→14:40)
[2025-03-06] MEDS: TXA 1000mg in NS100 100ml (IVPB at Incision) 660 MG IV (08:15)
[2025-03-06] MEDS: dexAMETHasone 10 MG/ML Vial IV (08:20)
[2025-03-06] MEDS: TXA 1000mg in NS100 100ml (IVPB at Closure) 660 MG IV (08:47)
[2025-03-06] MEDS: Epinephrine (1 mg/ml) 1 MG/ML VIAL (09:43)
[2025-03-06] MEDS: 0.9% Normal Saline (Pres. free 10 ML Vial (09:43)
[2025-03-06] MEDS: dexAMETHasone 4 MG/ML Vial (09:43)
[2025-03-06] MEDS: Bupivacaine 0.5% PF 10 ML VIAL ×2 (09:43→09:45)
--- NOTE | 2025-03-06 10:41 | OP.PCM_ITS ---
Operative Report (Standard) Operative Information Date of Procedure: 03/06/25 Pre-Operative Diagnosis: Right knee DJD Post-Operative Diagnosis: Same Surgery/Procedure Performed: Right total knee arthroplasty general surgery physician assistant: Yes Fishing Captain: Juan Manuel Hoffman Tasks completed by psych assistant: Opening & closing Type of Anesthesia: Spinal RN Documented Start/Stop Times: Operation Date: 03/06/25 08:00 Case Time Into Pre-Op 03/06/25 06:07 Anesthesia Start 03/06/25 08:12 Into Room 03/06/25 08:12 Out of Pre-Op 03/06/25 08:12 Procedure Start 03/06/25 08:33 Procedure End 03/06/25 10:38 Anesthesia End 03/06/25 10:46 Out of Room 03/06/25 10:46 Procedure Start Time: 08:33 Procedure Stop Time: 10:38 Select all DRAINS/GRAFTS/IMPLANTS that apply: Prosthetic device Prosthetic device details: Obed triathlon hybrid press-fit femur cemented tibia and patella Estimated Blood Loss: 125 Specimen collected: Yes Description of specimen(s) removed: Bone Description of surgery: Preoperative diagnosis: 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 My physician contract administrative assistant was a vital part of this case. He was important in appropriate retraction during the case, and protection of soft tissues during procedure. His intimate knowledge of the case and my steps aided in safe and expedient completion of the procedure as well as appropriate position of the extremity during the case. He was also vital in assisting with closure under my direct supervision. Indication for procedure: This is a 74-year-old male with long standing degenerative joint disease and gout of the knee who has failed conservative treatment and wished to proceed with elective total knee arthroplasty. Risk benefits and alternatives were reviewed including; risk of bleeding, infection, nerve artery and tissue damage, continued pain, postoperative stiffness, venous thromboembolism, need for postoperative rehabilitation, mechanical feel to the knee, and expected postoperative course. The pre- operative CT and templating was performed with component sizing. Procedure: The patient was met in the preoperative holding area. The operative extremity was identified by both patient and physician and was marked. Patient was met by anesthesia. An adductor canal block was placed by anesthesia postoperatively the patient was brought back to the operating room on a wheeled cart and transferred to the operating table in the supine position. Anesthesia was started. A well-padded tourniquet was placed on the operative extremity. The patient was prepped and draped in the usual sterile fashion. A timeout was called to ensure the proper patient procedure and extremity were being contemplated. An esmarch was used to exsanguinate the extremity. The tourniquet was inflated. A 10 blade scalpel was used to make a midline incision down through the skin and subcutaneous tissue. Skin retractors placed. Bovie and Aquamantis were used to perform meticulous hemostasis. full-thickness flaps were elevated medial and lateral along the joint capsule. A deep blade scalpel was used to perform a medial parapatellar arthrotomy. The knee was brought to full extension. A bovie was used to release the soft tissues off the most proximal aspect of the medial tibial plateau, a three-quarter inch curved osteotome was also used in this process. The infrapatellar fat pad was excised. The suprapatellar fat pad was excised partially anteriorolateraly and portion the anterioromedial pad was elevated from the femur. At this point our intra- articular femoral array was placed at a 45 degree angle proximal and posterior to the medial epicondyle. femoral checkpoint was placed at this time. Our tibial array was placed partially intra incisional 1 stab incision was made for the inferior pin with a 15 blade scaple, and pins were placed and attached to the tibial array , tibial checkpoint was placed in the proximal tibial metaphysis. Tourniquet was let down. At this point registration catalan were taken throughout the knee . Once the knee was registered we then tensioned the medial and lateral ligaments in extension and 90 degrees of flexion. We then used these numbers to adjust our components within parameters to balance the knee in both flexion and extension once this was done on our monitor we then proceeded with using the robotic arm to make our tibial plateau cut, anterior and posterior chamfer and distal femur cuts. we removed the cut fragments with t he use of a bovie and Daisy, we did use a lamina occupational therapist assistant to insure we visualized and removed all posterior osteophytes and at this time also used the Aquamantis on the posterior joint capsule. we then trialed and achieved the desired plan with a well-balanced knee. we used the green probe to mitchell the corresponding tibial rotation based on our CT template. Lug holes were drilled in the femur the tibia preparation was completed with the appropriate sized base plate pinned based on previous rotation mitchell. An appropriate sized fin punch was used on the tibia , there was a cyst in the proximal medial tibial plateau which was curetted. the patella was prepared by first using a caliper to ensure sufficient bone stock and a patellar reamer to remove the desired amount of bone. lug holes drilled for an asymmetric poly. We then brought the knee through range of motion with excellent patellar tracking. We thoroughly irrigated the knee. Trial components were removed a posterior capsular i njection was preformed with our standard cocktail. In addition the aqua Mantis was also used to aid in hemostasis. Betadine rinse was allowed to sit and washed out completely. Components were cemented in place on the tibia excess cement was removed with a [place] elevator the femoral component was press-fit and the patellar component was also cemented and clamped we did hold the knee in extension until cemented hardened we did allow a Betadine rinse to sit for 5 minutes during this.. Aricept rinse was then used followed by several more liters of irrigation after it was allowed to sit. The joint capsule was closed with #1 Ethibond [id number] in the upper part of the arthrotomy and #1 Vicryl in the lower part of the arthrotomy. , Followed by 2-0 Vicryl in the subcutaneous tissues with elvin in the skin. Arrays and checkpoints were removed prior to closure all counts were correct stab incisions were closed with a staple standard dressing in the form of Mepilex AG for the main incision and a small Mepilex over the pin holes. Thigh-high VANESSA hose applied over top of dressing. Patient tolerated the procedure well and was directed to PACU in stable condition . There were no intraoperative complications. Surgical Findings: DJD varus deformity flexion contracture Complications Complications: No
--- NOTE | 2025-03-06 10:45 | EX.PCM.DISCH ---
Discharge Instructions Diet Discharge Diet: No restrictions (Gout dietary precautions) Activity Weight Bearing Status: Full weight bearing Keep extremity elevated above heart level: Operative Extremity Dressing / Incision Call your doctor if you observe: Shortness of breath and Chest pain Additional Dressing/Incision Instructions:: Ice and elevate lower extremities 2 weeks while not ambulating. Ambulation is encouraged. Weight bearing as tolerated. Use assistive devise for stability. Encourage FULL knee extension and flexion 1 time EVERY time you get up and down and MULTIPLE times per day. No showering until 72 hours after surgery. May begin showering postop day #3. Remove the dressing prior to shower and gently wash with warm water and antibacterial soap then pat dry and place abdominal pad (or plain gauze) and VANESSA hose over top. If you decide not to begin showering 72 hrs post operatively and wish to sponge bath only, then you may leave dressing undisturbed for up to 1 week, but must remove prior to first shower. Do not submerge for 3 weeks. If not showering daily after the initial dressing is removed you must clean incision and change dressing daily after the dressing comes off, must come off by 7 days postop. Do not allow animals near the incision area. Keep clean. Follow anti-coagulation recommendations as prescribed. Do not take any NSAIDs while on blood thinner. Do not take any additional narcotic pain medication other than what was prescribed on your surgery day without discussing with physician. Narcotic medication can be addictive. Do not drink alcohol while taking narcotics. Supplement narcotic prescription with acetaminophen 1000 mg 4 times a day. Start physical therapy. If you are not currently scheduled for physical therapy or you are unsure of appointment time please call office [facility] to arrange. Call Dr. Watters's office ) with any concerns. Follow Up Care Please Follow Up With: Loyd Watters DO When: 2 weeks Test Results: Test results from this visit will be discussed in further detail at your follow-up appointment, if applicable. Discharge Plan Admission Primary Reason for Your Visit: Right total knee arthroplasty Attending Provider: Loyd Watters Primary Care Provider: Cate Sapp Instructions Print Language: Beninese Discharge Orders/Prescriptions Prescriptions: New acetaminophen 500 mg tablet 1,000 mg PO Q6H Qty: 100 0RF cephalexin 500 mg capsule 1,000 mg PO Q8H Qty: 4 0RF Rx Instructions: Take 2 tabs before you go to bed and 2 tabs after 5 AM morning after surgery when you wake up Eliquis 2.5 mg tablet 2.5 mg PO BID Qty: 28 0RF Rx Instructions: Begin morning after surgery. oxycodone 5 mg tablet 5 - 10 mg PO Q4H PRN (Reason: pain) 7 Days Qty: 60 0RF Continued lisinopril-hydrochlorothiazide 20-12.5 mg tablet 2 tab PO DAILY Qty: 180 3RF doxazosin 4 mg tablet 4 mg PO BID 90 Days Qty: 180 3RF allopurinol 100 mg tablet 100 mg PO QDAY Qty: 30 1RF amlodipine 10 mg tablet 10 mg PO QHS Qty: 90 1RF Held meloxicam 15 mg tablet 15 mg PO DAILY PRN (Reason: pain) Hold Instructions: May resume after completion of blood thinner Referrals / Follow Up: Cate Sapp MD [Primary Care Provider] - Disposition Disposition (needs filled in before D/C Order can be placed): Home, Self Care
--- NOTE | 2025-03-06 11:00 | RAD_ITS ---
PROCEDURE: KNEE 1 OR 2 VIEWS 03/06/2025 REASON FOR EXAM: POSTOP PACU TECHNIQUE: 2 view(s) of the right knee FINDINGS: Status post right knee replacement with patellar resurfacing appears intact and anatomic. No fracture or dislocation. Soft tissue and intra-articular air with overlying skin elvin. Enthesopathic change at the anterior tuberosity and patella. RAD/Knee 1 or 2 Views IMPRESSION: Status post right knee replacement with patellar resurfacing appears intact and anatomic. Reading Location: [id number]
--- NOTE | 2025-03-06 12:27 | PCM.POST.ANE ---
Anesthesia: Postop Eval I Current Vital Signs Temperature: 98 F Pulse Rate: 89 Blood Pressure: 132/59 Respiratory Rate: 14 Pulse Ox: 98 Oxygen Delivery Method: Room Air Assessment Airway patent: Yes Spontaneous unlabored respirations: Yes Mental status: Awake and Calm nausea: No Vomiting: No Anesthesia Complication: No Fluid Hydration Crystalloid volume administer (ml): 1,500 Total IV fluid infused: 1,500 Progress Note Anesthesia document: Postop Eval 1 completed: Yes
[2025-03-06] MEDS: Ketorolac 30 MG/ML Syringe IV (13:17)
--- NOTE | 2025-03-06 16:23 | POSTOPAN2_ITS ---
Anesthesia Postop Eval I Sum Postop Eval Completion status Anesthesia document: Postop Eval 1 completed: Yes Anesthesia Postop Eval I Summary Anesthesia Postop Eval I Summary: Anesthesia Postop Eval I: Assessment Summary Airway patent Yes 03/06/25 12:27 INFORMATION SECURITY [email or web address] Spontaneous unlabored Yes 03/06/25 12:27 INFORMATION SECURITY [email or web address] respirations Mental status Awake,Calm 03/06/25 12:27 INFORMATION SECURITY [email or web address] nausea No 03/06/25 12:27 INFORMATION SECURITY [email or web address] Vomiting No 03/06/25 12:27 INFORMATION SECURITY [email or web address] Anesthesia Postop Eval I: Fluid Summary Crystalloid volume administer 1,500 03/06/25 12:27 INFORMATION SECURITY [email or web address] (ml) Colloids volume administered ( ml) Blood Product volume administered (ml) Total IV fluid infused 1,500 03/06/25 12:27 INFORMATION SECURITY [email or web address] Anesthesia Postop Eval I: Summary Notes Anesthesia Complication No 03/06/25 12:27 INFORMATION SECURITY [email or web address] Anesthesia Complication Comment: Post-operative progress note Anesthesia: Postop Eval II Evaluation Mental status: Awake and Calm Pain Level: 2 nausea: No Vomiting: No Complications Anesthesia Complication: No
--- NOTE | 2025-03-06 16:23 | PCM.POSTANE2 ---
Anesthesia Postop Eval I Sum Postop Eval Completion status Anesthesia document: Postop Eval 1 completed: Yes Anesthesia Postop Eval I Summary Anesthesia Postop Eval I Summary: Anesthesia Postop Eval I: Assessment Summary Airway patent Yes 03/06/25 12:27 MARKETING PRODUCTION [email or web address] Spontaneous unlabored Yes 03/06/25 12:27 MARKETING PRODUCTION [email or web address] respirations Mental status Awake,Calm 03/06/25 12:27 MARKETING PRODUCTION [email or web address] nausea No 03/06/25 12:27 MARKETING PRODUCTION [email or web address] Vomiting No 03/06/25 12:27 MARKETING PRODUCTION [email or web address] Anesthesia Postop Eval I: Fluid Summary Crystalloid volume administer 1,500 03/06/25 12:27 MARKETING PRODUCTION [email or web address] (ml) Colloids volume administered ( ml) Blood Product volume administered (ml) Total IV fluid infused 1,500 03/06/25 12:27 MARKETING PRODUCTION [email or web address] Anesthesia Postop Eval I: Summary Notes Anesthesia Complication No 03/06/25 12:27 MARKETING PRODUCTION [email or web address] Anesthesia Complication Comment: Post-operative progress note Anesthesia: Postop Eval II Evaluation Mental status: Awake and Calm Pain Level: 2 nausea: No Vomiting: No Complications Anesthesia Complication: No
== END 2025-03-06 15:03 | disposition home or self-care (01) ==
LOC: SDC 06:00 → AC 06:02
PROVIDERS: PCP Internal Medicine; Referring Provider Orthopaedic Surgery; Visit Provider Orthopaedic Surgery
PROC: 0SRC0JZ Replacement of Right Knee Joint with Synthetic Substitute, Open Approach (ICD-10-PCS; CPT 27447; principal; 2025-03-06 07:30)
DX: M17.0 Bilateral primary osteoarthritis of knee (principal); M10.069 Idiopathic gout, unspecified knee; M21.161 Varus deformity, not elsewhere classified, right knee; I10 Essential (primary) hypertension; Z79.1 Long term (current) use of non-steroidal anti-inflammatories (NSAID); Z79.82 Long term (current) use of aspirin; Z79.899 Other long term (current) drug therapy
CPT/HCPCS: 27447; 64448; 73560; 82962; 88305; 88311; 97161; C1776; A4216; J2405; J3475

== ENCOUNTER → 2025-04-09 | Outpatient (CLI) | payer MEDICARE, SELFPAY ==
[2025-04-09 17:32] LABS: Anion Gap 14 (5-15); BUN 13 mg/dL (4-19); BUN/Creat Ratio 13.7 RATIO (10-20); Calcium,Total 9.8 mg/dL (7.6-11.0); Carbon Dioxide 20.7 mmol/L (21.0-32.0); Chloride 101 mmol/L (98-108); Creatinine, Serum 0.94 mg/dL (0.70-1.20); EST Glomerular Filtration Rate 85 (>60); Glucose 90 mg/dL (70-99); Potassium 3.9 mmol/L (3.3-5.1); Sodium Level 137 mmol/L (133-145); Uric Acid 6.9 mg/dL (3.5-7.2)
== END | disposition home or self-care (01) ==
LOC: BIMLAB 14:29
PROVIDERS: PCP Internal Medicine; Referring Provider Internal Medicine; Visit Provider Internal Medicine
DX: I10 Essential (primary) hypertension (principal); M10.9 Gout, unspecified
CPT/HCPCS: 36415; 80048; 84550

== ENCOUNTER 2025-04-20 13:30 | Outpatient (RCR) | payer MEDICARE, SELFPAY ==
--- NOTE | 2025-03-12 09:28 | HP.PTEVAL_ITS ---
Patient's Visit Information Visit Information Visit Information: BEBA GOLDSMITH is a 74 year old M referred to Physical Therapy by Dr. Loyd Watters DO with a diagnosis of R TKA, DOS:03/06/25. Date of Evaluation: 03/09/25 Physical Therapist: Daljit Villela DPT Visit Plan Frequency: 3x /Week Duration: 6 Weeks Plan: 1) R knee ROM progressing towards 0-0-120deg. 2) edema control 3) Increase RLE strength progressing to functional strengthening 3) gait progression and stair negotiation. Subjective Subjective: Pt. is here today for his initial evaluation with diagnosis of R TKA, DOS: 03/06/25. Pt. arrives today with use of FWW with good tolerance. PT. reports overall doing well. Pt. no N/T, no calf pain and no difficulty with breathing. Pt. reports that both knees were bad and will most likely have to have the L knee replaced as well. pt. has been doing some of his exercises at home with good tolerance. Pt. is retired, but would like to be able to complete all daily activities with limitations. Pt. is sleeping well without issues. He is having some trouble getting his leg straight and bend, but was able to ride in his jeep to PT this date. No fever and no drainage noted. Pain R knee: Pain Intensity (Out of 10): 4 Pain Intensity Range: 3 and 8 Objective Objective: POSTURE: Pt. lacks TKE on RLE in stance with increased L sided wt. shift. PALPATION: Pt. has no pitting edema noted. Pt. has a bandage in place, negative homans sign. NEURO: normal throughout. ROM: R knee: 0-9-94deg. Pt. has pain and tightness at both end ranges. Tight HS as well. MMT: LLE: knee: ext 38#, flexion 21#; hip: flexion 23.9# RLE: knee: Ext 0#, flexion 8#; hip: flexion 0# GAIT: Pt. ambulates with FWW with good tolerance. Pt. has has decreased step length bilaterally. Pt. heavily uses AD to off load his R LE. STAIRS: step to pattern noted with use of bilateral HR. Balance/Special Test Scores TUG Test Time Seconds: 28.8 30 Second Chair Rise Test Seconds: 7 WOMAC Total Score: 72 WOMAC Percentatge: 25.0000 Goals Goal 1:: LTG: Pt. to be I with HEP for RLE ROM and strength. Goal Time Frame: 6-8 Weeks Goal 2:: STG: Pt.to have symmetrical girth at mid patella for BLEs indicating reduced RLE edema. Goal Time Frame: 2-4 Weeks Goal 3:: LTG: Pt. to have increased R knee ROM to 0-0-120deg allowing for increased ability to complete all stair negotiation and functional mobility. Goal Time Frame: 4-6 Weeks Goal 4:: LTG: pt. to ambulate with normal gait pattern without AD without increase in R knee pain. Goal Time Frame: 4-6 Weeks Goal 5:: LTG: Pt. to complete TUG with out AD with time less than 10seconds indicating proper functional mobility. Goal Time Frame: 4-6 Weeks Goal 6:: LTG: pt. to complete 30sec sit to stand rep test with at least 15 reps indicating proper LE functional strength. Rehabilitation Potential Physical Therapy Diagnosis: Pt. has signs and symptoms consistent with R TKA, DOS:03/06/25. Pt has marked hypomobility, weakness, difficulty walking, increased pain and would benefit from PT to address the above limitation progressing back to all previous levels of function without issues. Rehabilitation Potential: Excellent Anticipated Interventions Patient/Client Instruction: Educate patient on: Condition, Plan of Care, Risk Factors and Benefits of Fitness Program For the Purpose of:: To improve health and function, To foster healthy habits, To improve decision making, To facilitate caregiver knowledge, To improve self management, To prevent re-injury and To improve ability to perform tasks related to life management Therapeutic Exercise to Include: Strength training, Power training, Endurance training, Postural training, Flexibilty training, Gait and locomotor training, Passive ROM and Active ROM For the Purpose of:: To decrease pain, To decrease swelling/inflammation, To increase ROM, To improve nutrient delivery to tissue, To increase oxygenation perfusion, To improve muscle performance and motor function, To improve ability to perform ADL's, To increase tolerance to activity/condition/position, To improve gait and locomotor functions, To improve health of tissue, To decrease soft tissue restriction and To increase flexibility/ROM Manual Therapy Techniques to Include: Mobilization and Soft tissue mobilization For the Purpose of:: To decrease pain, To decrease swelling/inflammation, To increase ROM, To improve nutrient delivery to tissue, To increase oxygenation perfusion and To improve muscle performance and motor function Cryotherapy (ice pack, ice massage): Yes Vasopneumatic device: Yes For the Purpose of:: To decrease pain, To decrease swelling/inflammation, To increase ROM, To improve nutrient delivery to tissue, To increase oxygenation perfusion and To improve muscle performance and motor function Text: Thank you for the opportunity to evaluate your patient. For Medicare and Medicare HMO plans, please review the plan of care and approve it. It will need to be FAXED BACK to us at [phone] for Medicare purposes. For Medicare only, by signing this I certify the plan of care. Please let me know if there are questions or concerns regarding this plan of care. Physician Signature: Date:
--- NOTE | 2025-04-06 15:01 | HP.PTREVAL ---
Re-Evaluation Intro: Dr. Loyd Watters, DO, It has been my pleasure to treat BEBA GOLDSMITH over the last 12 visits for R TKA, DOS:03/06/25. Please see the progress note below for an update on the physical therapy plan of care! Subjective Subjective: pt. reports overall doing better. No much pain, but still feels tight. Pt. was able to get out with his grand kids the other day without much issue. Objective Objective/Function: ROM: 0-5-110deg with over pressure, 0-5-105deg with active motion MMT: R quad 33.1#, L quad 31.4# GAIT: pt. ambulates with lack of TKE during R stance phase. Pt. has decent knee flexion during swing phase. STAIRS: Pt. is able to complete with reciprocal pattern but does heavily use railings to complete. Pt. does have early heel off on R side during descending. Beba is still tight with end range flexion and extension. I would really like him to work on improving this in order to allow him to walk better and to increase his able to negotiate stairs. Plan Plan Plan: I asking for 6 more visits to work on end range of motions, both extension and flexion. His strength is progressing well, I would like him to have a bit better ROM of his R knee. Balance/Gait/Functional tests Balance/Special Test Scores TUG Test Time Seconds: 12.1 Tug Test: <20 sec.=mostly independent 30 Second Chair Rise Test Seconds: 11 WOMAC Total Score: 24 WOMAC Percentage: 75.0000 Goals Goals Goal 1:: LTG: Pt. to be I with HEP for RLE ROM and strength. Goal Time Frame: 6-8 Weeks Goal Progress: Progressing Goal 2:: STG: Pt.to have symmetrical girth at mid patella for BLEs indicating reduced RLE edema. Goal Time Frame: 2-4 Weeks Goal Progress: Goal Met Goal 3:: LTG: Pt. to have increased R knee ROM to 0-0-120deg allowing for increased ability to complete all stair negotiation and functional mobility. Goal Time Frame: 4-6 Weeks Goal Progress: Progressing Goal 4:: LTG: pt. to ambulate with normal gait pattern without AD without increase in R knee pain. Goal Time Frame: 4-6 Weeks Goal Progress: Progressing Goal 5:: LTG: Pt. to complete TUG with out AD with time less than 10seconds indicating proper functional mobility. Goal Time Frame: 4-6 Weeks Goal Progress: Progressing Goal 6:: LTG: pt. to complete 30sec sit to stand rep test with at least 15 reps indicating proper LE functional strength. Goal Progress: Progressing Anticipated Interventions Anticipated Interventions Patient/Client Instruction: Educate patient on: Condition, Plan of Care, Risk Factors and Benefits of Fitness Program For the Purpose of:: To improve health and function, To foster healthy habits, To improve decision making, To facilitate caregiver knowledge, To improve self management, To prevent re-injury and To improve ability to perform tasks related to life management Therapeutic Exercise to Include: Strength training, Power training, Endurance training, Postural training, Flexibilty training, Gait and locomotor training, Passive ROM and Active ROM For the Purpose of:: To decrease pain, To decrease swelling/inflammation, To increase ROM, To improve nutrient delivery to tissue, To increase oxygenation perfusion, To improve muscle performance and motor function, To improve ability to perform ADL's, To increase tolerance to activity/condition/position, To improve gait and locomotor functions, To improve health of tissue, To decrease soft tissue restriction and To increase flexibility/ROM Manual Therapy Techniques to Include: Mobilization and Soft tissue mobilization For the Purpose of:: To decrease pain, To decrease swelling/inflammation, To increase ROM, To improve nutrient delivery to tissue, To increase oxygenation perfusion and To improve muscle performance and motor function Cryotherapy (ice pack, ice massage): Yes Vasopneumatic device: Yes For the Purpose of:: To decrease pain, To decrease swelling/inflammation, To increase ROM, To improve nutrient delivery to tissue, To increase oxygenation perfusion and To improve muscle performance and motor function Re-Evaluation Ending Re-evaluation ending: Please do not hesitate to contact me at [phone] by phone or if you have questions or concerns regarding this new plan of care! Sincerely, Daljit Villela DPT
== END 2025-04-20 19:00 | disposition home or self-care (01) ==
LOC: PT 13:30
PROVIDERS: PCP Internal Medicine; Referring Provider Orthopaedic Surgery; Visit Provider Orthopaedic Surgery
DX: M17.11 Unilateral primary osteoarthritis, right knee (principal); Z96.651 Presence of right artificial knee joint
CPT/HCPCS: 97110; 97161; 97530

== ENCOUNTER → 2025-11-16 | Outpatient (CLI) | payer MEDICARE, SELFPAY ==
--- NOTE | 2025-11-16 14:44 | CT_ITS ---
PROCEDURE: EXTREMITY LOWER WITHOUT CONTRA 11/16/2025 REASON FOR EXAM: TEMPLATING FOR LEFT TKA TECHNIQUE: Procedure Code: CTELWO Modality: CT Procedure: EXTREMITY LOWER WITHOUT CONTRA Coronal and Sagittal reconstruction series were provided. CONTRAST: None VOLUME: mL One or more dose reduction techniques were used (e.g., Automated exposure control, adjustment of the mA and/or kV according to patient size, use of iterative reconstruction technique). RADIATION DOSE SUMMARY: CTDlvol: 112 mGy DLP: 3002 mGycm FINDINGS: Sigmoid colonic diverticula. Prostatic enlargement. Iliac arterial atherosclerotic calcifications. Bilateral hip arthrosis and marginal osseous ridging. No definite femoral head osteonecrosis. Tricompartment arthrosis and marginal osseous ridging about the left knee, most severe medially, with marked joint space narrowing as well as degenerative subcortical cystic changes and cortical irregularities along both surfaces. Degenerative cystic changes in the tibial eminence. Mild lateral patellar positioning and tilt. Milder arthrosis at the tibio-fibular joint. No osseous internal body. Popliteal cysts. Small left knee joint effusion. Arterial calcifications in the left lower extremity. Mild ankle arthrosis and marginal osseous ridging. Mild subtalar joint arthrosis. Plantar and posterior calcaneal spurring. Mild talonavicular joint arthrosis. No evidence of tarsal or proximal metatarsal fracture. Degenerative cystic changes in the medial malleolus in the adjacent medial body of the talus. Degenerative cystic changes in the distal fibula and posterior malleolus. Degenerative cysts in the lateral navicular as well as the medial and middle cuneiforms. Arthrosis of the 1st metatarsophalangeal joint and 1st metatarsal-sesamoid joints. No evidence of fracture is identified. CT/Extremity Lower without Contra IMPRESSION: Tricompartment left knee arthrosis, most severe medially. Small left knee effusion. Popliteal cysts. Mild lateral patellar positioning and tilt is suggestive of patellofemoral stre ss/tracking abnormality. Bilateral hip arthrosis. No definite femoral head osteonecrosis. Arthrosis and degenerative changes about the ankle and foot as described. Reading Location: [facility]
--- OUTSIDE RECORDS SUMMARY | 2025-11-16 14:48 | XMS RPT_ITS | CCD ---
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 Cate Sapp Primary Care Provider [phone] Dr. Cate Sapp Attending Provider [phone] Dr. Cate Sapp Referring Provider [phone] Dr. Cate Sapp Primary Care Provider [phone] Dr. Cate Sapp Attending Provider [phone] Dr. Cate Sapp Referring Provider [phone] Dr. Cate Sapp Other Provider [phone] Dr. Vipin Villegas Attending Provider Senait MOORE, Dr. Esposito Primary Care Provider Dr. Cate Sapp MD Attending Provider [phone]) Senait MOORE, Dr. Esposito Referring Provider [phone] Dr. Loyd Watters DO Attending Provider Luke MOORE, Dr. Guajardo Attending Provider [phone] Dr. Loyd Watters DO Referring Provider Senait MOORE, Dr. Esposito Primary Care Provider Senait MOORE, Dr. Esposito Referring Provider [phone]) Senait MOORE, Dr. Esposito Attending Provider 1([phone]) Tenisha Edwards Attending Provider Janene ROSALES, Dr. Harp Other Provider [phone]) Senait MOORE, Dr. Esposito Primary Care Provider Senait MOORE, Dr. Esposito Referring Provider 1([phone]) Janene ROSALES, Dr. Harp Attending Provider Janene ROSALES, Dr. Harp Referring Provider Senait MOORE, Dr. Esposito Primary Care Provider Senait MOORE, Dr. Esposito Referring Provider 1(33 0) Janene ROSALES, Dr. Harp Attending Provider Janene ROSALES, Dr. Harp Referring Provider Senait MOORE, Dr. Esposito Attending Provider 1([phone] 0) Luke MOORE, Dr. Guajardo Attending Provider [phone] Oleghe, Efewongbe Primary Care Unavailable Oleghe, Efewongbe Referring Unavailable Oleghe, Efewongbe Attending Unavailable Oleghe, Efewongbe Primary Care Unavailable Oleghe, Efewongbe Referring Unavailable Oleghe, Efewongbe Attending Unavailable Oleghe, Efewongbe Referring Unavailable Oleghe, Efewongbe Primary Care Unavailable Oleghe, Efewongbe Attending Unavailable Oleghe, Efewongbe Referring Unavailable Loyd Watters Attending Unavailable Oleghe, Efewongbe Primary Care Unavailable Oleghe, Efewongbe Primary Care Unavailable Oleghe, Efewongbe Referring Unavailable Oleghe, Efewongbe Attending Unavailable Oleghe, Efewongbe Primary Care Unavailable Oleghe, Efewongbe Attending Unavailable Oleghe, Efewongbe Primary Care Unavailable Loyd Watters Referring Unavailable Loyd Watters Attending Unavailable Oleghe, Efewongbe Primary Care Unavailable Loyd Watters Attending Unavailable Loyd Watters Referring Unavailable Oleghe, Efewongbe Referring Unavailable Oleghe, Efewongbe Primary Care Unavailable Loyd Watters Attending Unavailable Oleghe, Efewongbe Primary Care Unavailable Loyd Watters Attending Unavailable Loyd Watters Referring Unavailable Oleghe, Efewongbe Primary Care Unavailable Loyd Watters Attending Unavailable Loyd Watters Referring Unavailable Bennett Butler Attending Unavailable Oleghe, Efewongbe Primary Care Unavailable Oleghe, Efewongbe Primary Care Unavailable Bennett Butler Attending Unavailable Oleghe, Efewongbe Referring Unavailable Oleghe, Efewongbe Primary Care Unavailable Loyd Watters Attending Unavailable Oleghe, Efewongbe Primary Care Unavailable Oleghe, Efewongbe Referring Unavailable Loyd Watters Attending Unavailable Oleghe, Efewongbe Primary Care Unavailable Oleghe, Efewongbe Referring Unavailable Oleghe, Efewongbe Attending Unavailable Oleghe, Efewongbe Referring Unavailable Oleghe, Efewongbe Primary Care Unavailable Loyd Watters Attending Unavailable Oleghe, Efewongbe Primary Care Unavailable Oleghe, Efewongbe Referring Unavailable Oleghe, Efewongbe Attending Unavailable Oleghe, Efewongbe Primary Care Unavailable Loyd Watters Consulting Unavailable Loyd Watters Referring Unavailable Loyd Watters Attending Unavailable Tenisha Altamirano Attending Unavailable Oleghe, Efewongbe Primary Care Unavailable Oleghe, Efewongbe Referring Unavailable Tenisha Altamirano Attending Unavailable Oleghe, Efewongbe Primary Care Unavailable Oleghe, Efewongbe Referring Unavailable Oleghe, Efewongbe Primary Care Unavailable Loyd Watters Attending Unavailable Loyd Watters Referring Unavailable Oleghe Dr. Cate MOORE Primary Care Physician Dr. Cate Sapp MD Referring Provider Dr. Loyd Watters DO Attending Physician Allergies Allergy Classification Reported Allergen(s) Allergy Type Date of Onset Reaction(s) Facility (11 sources) Doxycycline Drug Allergy 06-29-2022 swelling [facility] (11 sources) Latex Allergy to substance 06-29-2022 rash [facility] (1 source) Doxycycline Drug Allergy 04-13-2025 [facility] Repository (1 source) Latex Drug allergy (disorder) 04-13-2025 [facility] Repository Medications Current Medications Medication Drug Class(es) Dates Sig (Normalized) Sig (Original) allopurinol 100 mg oral tablet (10 sources) Xanthine Oxidase Inhibitor Start: 02-07-2025 End: 06-25-2025 take 1 tablet by mouth once daily amLODIPine 10 mg oral tablet (20 sources) Dihydropyridine Calcium Channel Beata Start: 02-21-2019 End: 08-20-2025 take 1 tablet by mouth at bedtime doxazosin 4 mg oral tablet (20 sources) alpha-Adrenergic Beata Start: 09-17-2025 take 1 tablet by mouth twice daily Start: 06-30-2023 End: 09-17-2025 take 1 tablet by mouth twice daily Doxazosin 4 mg tablet Discontinued 4 mg PO TWICE A DAY 180 90 3 September 04, 2024 12:58pm September 17, 2025 3:52pm Start: 02-21-2019 End: 06-30-2023 take 1 tablet by mouth once daily Doxazosin 4 mg tablet Discontinued 4 mg PO DAILY 90 3 April 05, 2023 1:58pm June 30, 2023 1:53pm meloxicam 15 mg oral tablet (20 sources) Nonsteroidal Anti-inflammatory Drug Start: 04-09-2025 End: 05-07-2025 take 1 tablet by mouth once daily as needed for pain Meloxicam 15 mg tablet Active 15 mg PO daily as needed for pain 90 1 May 07, 2025 12:23pm Complies with drug therapy Start: 03-06-2025 End: 03-19-2025 take 1 tablet by mouth once daily as needed for pain Meloxicam 15 mg tablet Discontinued 15 mg PO DAILY as needed for pain March 06, 2025 12:00am March 19, 2025 1:31pm On Hold: May resume after completion of blood thinner Start: 07-01-2020 End: 01-26-2025 take 1 tablet by mouth once daily as needed for pain Meloxicam 15 mg tablet Discontinued 15 mg PO DAILY as needed for pain 90 0 December 18, 2024 12:51pm January 26, 2025 2:07pm multivitamin capsule (4 sources) Start: 02-21-2019 take 1 capsule by mouth once daily multivitamin capsule Active 1 CAP PO DAILY February 21, 2019 12:00am Completed/Discontinued Medications Medication Drug Class(es) Dates Sig (Normalized) Sig (Original) acetaminophen 500 mg oral tablet (4 sources) Start: 03-06-2025 End: 03-19-2025 take 2 tablets by mouth every six hours Acetaminophen 500 mg tablet Discontinued 1000 mg PO EVERY 6 HOURS 100 0 March 06, 2025 12:00am March 19, 2025 1:31pm apixaban 2.5 mg oral tablet (4 sources) Factor Xa Inhibitor Start: 03-06-2025 End: 04-09-2025 take 1 tablet by mouth twice daily in the morning Apixaban (Eliquis) 2.5 mg tablet Discontinued 2.5 mg PO TWICE A DAY 28 0 March 06, 2025 12:00am April 09, 2025 1:13pm Begin morning after surgery. aspirin 81 mg delayed release oral tablet (11 sources) Platelet Aggregation Inhibitor, Nonsteroidal Anti-inflammatory Drug Start: 02-21-2019 End: 02-09-2025 take 1 tablet by mouth once daily Aspirin 81 mg tablet,delayed release (DR/EC) Discontinued 81 mg PO DAILY February 21, 2019 12:00am February 09, 2025 11:01am biotin 1 mg oral capsule (11 sources) Start: 06-29-2022 End: 02-09-2025 take 1 capsule by mouth once daily Biotin 1 mg capsule Discontinued 1 mg PO DAILY June 29, 2022 12:00am February 09, 2025 11:01am cephalexin 500 mg oral capsule (4 sources) Cephalosporin Antibacterial Start: 03-06-2025 End: 04-09-2025 Cephalexin 500 mg capsule Discontinued 1000 mg PO Q8H 4 0 March 06, 2025 12:00am April 09, 2025 1:13pm Take 2 tabs before you go to bed and 2 tabs after 5 AM morning after surgery when you wake up cetirizine hydrochloride 10 mg oral tablet (11 sources) Histamine-1 Receptor Antagonist Start: 02-21-2019 End: 02-09-2025 take 5 mg by mouth once daily as needed Cetirizine (Zyrtec) 10 mg tablet Discontinued 5 mg PO DAILY as needed for allergy symptoms February 21, 2019 12:00am February 09, 2025 11:01am chondroitin sulfates 200 mg / glucosamine hydrochloride 250 mg oral tablet (20 sources) Start: 06-29-2022 End: 02-09-2025 Glucosamine-Chondr oitin (Osteo Bi-Flex) 250-200 mg tablet Discontinued 2 {tbl} PO TWICE A DAY June 29, 2022 1:26pm February 09, 2025 11:02am give after food/meal Start: 11-29-2020 End: 06-29-2022 Glucosamine-Chondroitin (Ost eo Bi-Flex) 250-200 mg tablet Discontinued 2 {tbl} PO THREE TIMES A DAY November 29, 2020 1:00am June 29, 2022 1:26pm give after food/meal colchicine 0.6 mg oral tablet (6 sources) Start: 02-07-2025 End: 02-28-2025 take 2 tablets by mouth once daily, then take 1 tablet by mouth every six hours Colchicine 0.6 mg tablet Discontinued 0.6 mg PO daily 3 February 07, 2025 12:00am February 28, 2025 2:53pm Take 1.2 mg once then 0.6 mg after 6 hours x 1. glucosamine hydrochloride 1500 mg oral tablet (11 sources) Start: 02-21-2019 End: 02-06-2025 take 1 tablet by mouth once daily Glucosamine Hcl 1,500 mg tablet Discontinued 1500 mg PO DAILY February 21, 2019 12:00am February 06, 2025 3:04pm hydroCHLOROthiazide 12.5 mg / lisinopril 20 mg oral tablet (20 sources) Thiazide Diuretic, Angiotensin Converting Enzyme Inhibitor Start: 02-21-2019 End: 04-04-2025 Lisinopril-Hydroc hlorothiazide 20-12.5 mg tablet Discontinued 2 {tbl} PO DAILY 180 3 April 18, 2024 11:29am April 04, 2025 1:08pm Start: 02-21-2019 End: 04-05-2023 take 2 tablets by mouth once daily Lisinopril-Hydrochlorothiazide Discontin ued 2 TABLET PO DAILY 180 April 06, 2022 8:36am April 05, 2023 1:58pm indomethacin 50 mg oral capsule (14 sources) Nonsteroidal Anti-inflammatory Drug Start: 01-26-2025 End: 02-09-2025 take 1 capsule by mouth three times daily as needed for pain Indomethacin 50 mg capsule Discontinued 50 mg PO THREE TIMES A DAY as needed for Joint pain 90 0 January 26, 2025 2:07pm February 09, 2025 11:02am administer with food or milk Start: 12-04-2024 End: 01-26-2025 take 1 capsule by mouth twice daily at mealtime Indomethacin 50 mg capsule Discontinued 50 mg PO TWICE A DAY December 04, 2024 1:00am January 26, 2025 2:07pm administer with food or milk methylPREDNISolone 4 mg oral tablet (20 sources) Corticosteroid Start: 12-04-2024 End: 01-24-2025 take 1 tablet by mouth once Methylprednisolone (Medrol (Tristan)) 4 mg tablets,dose pack Discontinued 0 PO per package directions 21 0 December 04, 2024 1:00am January 24, 2025 1:56pm PO PER PKG DIR Start: 06-13-2021 End: 06-18-2021 take 1 tablet by mouth once Methylprednisolone (Medrol (Tristan)) 4 mg tablets,dose pack Discontinued 4 mg PO per package directions 21 5 0 June 13, 2021 12:00am June 17, 2021 12:00am June 18, 2021 12:01am Start: 05-15-2020 End: 07-01-2020 take 1 tablet by mouth once Methylprednisolone (Medrol (Tristan)) 4 mg tablets,dose pack Discontinued 0 PO per package directions 0 May 15, 2020 12:00am July 01, 2020 1:52pm PO PER PKG DIR Multivitamin capsule (7 sources) Start: 02-21-2019 End: 02-09-2025 Multivitamin capsule Discont inued 1 NMA PO DAILY February 21, 2019 12:00am February 09, 2025 11:02am Start: 02-21-2019 Multivitamin c apsule Active 1 NMA PO DAILY February 21, 2019 12:00am oxyCODONE hydrochloride 5 mg oral tablet (4 sources) Opioid Agonist Start: 03-06-2025 End: 03-19-2025 take 5-10 mg by mouth every four hours as needed for pain Oxycodone 5 mg tablet Discontinued 5 - 10 mg PO Q4H as needed for pain 60 7 0 March 06, 2025 March 19, 2025 1:31pm Other acute postprocedural pain Other acute postprocedural pain Problems Active Problems Problem Classification Problem Date Documented Date Episodic/Chronic Acute and unspecified renal failure (11 sources) Injury of kidney; Translations: [Acute kidney failure, unspecified] 05-13-2021 Episodic Calculus of urinary tract (11 sources) History of calculus of kidney; Translations: [Personal history of urinary calculi] 02-21-2019 Episodic Essential hypertension (20 sources) Hypertensive disorder; Translations: [Essential (primary) hypertension] Onset: 04-13-2025 Chronic Gout and other crystal arthropathies (20 sources) Gout; Translations: [Gout, unspecified] Onset: 04-09-2025 Chronic Hyperplasia of prostate (15 sources) Benign prostatic hyperplasia; Translations: [Benign prostatic hyperplasia without lower urinary tract symptoms] Onset: 10-09-2024 06-30-2023 Chronic Immunizations and screening for infectious disease (10 sources) Needs influenza immunization; Translations: [Encounter for immunization] 10-01-2022 Episodic Osteoarthritis (20 sources) Primary gonarthrosis, bilateral; Translations: [Bilateral primary osteoarthritis of knee] Onset: 03-13-2025 Chronic Other aftercare (3 sources) Follow-up status; Translations: [Encounter for other orthopedic aftercare] 04-13-2025 Episodic Other connective tissue disease (7 sources) History of total knee arthroplasty; Translations: [Presence of right artificial knee joint] 03-19-2025 Chronic Other connective tissue disease (1 source) Presence of right artificial knee joint; Translations: [Presence of right artificial knee joint] Onset: 04-13-2025 Chronic Other connective tissue disease (10 sources) Pain in finger; Translations: [Pain in left finger(s)] 12-04-2024 Episodic Other connective tissue disease (6 sources) Foot pain; Translations: [Pain in right foot] 02-28-2025 Episodic Other connective tissue disease (1 source) Pain in finger of left hand; Translations: [Pain in left finger(s)] 12-04-2024 Episodic Other connective tissue disease (1 source) Pain in both feet; Translations: [Pain in right foot] 02-28-2025 Episodic Other lower respiratory disease (11 sources) H/O: pneumonia; Translations: [Personal history of pneumonia (recurrent)] 02-21-2019 Episodic Other nervous system disorders (4 sources) Acute postoperative pain; Translations: [Other acute postprocedural pain] 03-06-2025 Episodic Other non-traumatic joint disorders (2 sources) Pain in right knee; Translations: [Right knee pain] 02-23-2025 Episodic Other nutritional; endocrine; and metabolic disorders (11 sources) Body mass index 30+ - obesity; Translations: [Obesity, unspecified] 02-21-2019 Chronic Other upper respiratory disease (11 sources) Seasonal allergy; Translations: [Other seasonal allergic rhinitis] 02-21-2019 Chronic Unclassified (20 sources) Abnormal results of thyroid function studies; Translations: [Raised prostate specific antigen] Onset: 06-08-2017 07-05-2023 Episodic Unclassified (5 sources) Status post total right knee replacement; Translations: [Z96.651 - Presence of right artificial knee joint] Past or Other Problems Problem Classification Problem Date Documented Da te Episodic/Chronic Genitourinary symptoms and ill-defined conditions (3 sources) Nocturia; Translations: [NOCTURIA] Onset: 06-08-2017 Episodic Other connective tissue disease (1 source) Pain in unspecified finger(s); Translations: [Pain in unspecified finger(s)] Onset: 12-04-2024 Episodic Other non-traumatic joint disorders (20 sources) Pain in left knee; Translations: [Left knee pain] Onset: 12-04-2024 01-26-2022 Episodic Other non-traumatic joint disorders (1 source) Pain in unspecified joint; Translations: [Pain in unspecified joint] Onset: 12-25-2024 Episodic Unclassified (11 sources) benign growth on prostate 06-21-2022 Results Test Name Value Interpretation Reference Range Facility Orthopedic Visit Reporton Orthopedic Visit Report [facility] [address] [place] [address] OFFICE VISIT Date of Service: 06/08/25 MR#: [id number] Acct: [id number] Name: RUPALANTONI RAUL Rep #: [id number] : 1950 Provider: Dr. Loyd manuel DO Age/Sex: 75/M Location: [facility] [place] [facility] [place] Status: Signed Intake Vital Signs 04/13/25 11:03 Height 5 ft 9 in Weight: 218 lb BMI 32.1 Intake Visit Reasons: LEFT KNEE Allergies doxycycline Allergy (Severe, Verified 04/13/25 11:05) swelling latex Allergy (Intermediate, Verified 04/13/25 11:05) rash Medications ???Medication ???Instructions ???Recorded ???Confirmed ???Type doxazosin 4 mg tablet 4 mg PO BID 3 months #180 tabs 06/08/25 Rx amlodipine 10 mg tablet 10 mg PO QHS #90 tabs 02/23/25 Rx allopurinol 100 mg tablet 100 mg PO QDAY #90 tabs 03/29/25 0 06/08/25 Rx lisinopril 20 2 tab PO DAILY #180 tabs 04/04/25 06/08/25 Rx mg-hydrochlorothiazide 12.5 mg tablet meloxicam 15 mg tablet 15 mg PO QDAY PRN pain #90 tabs 06/08/25 Rx Have you fallen in the past year?: No PFSH Medical History Bilateral foot pain Loss of hearing Wears glasses Alcohol use History of steroid therapy Arthritis Gout High cholesterol Injury of head and neck History of ulceration Heartburn Non-smoker History of pain when walking History of edema History of stress test Elevated PSA BPH (benign prostatic hyperplasia) Bilateral primary osteoarthritis of knee ESTRELLA (acute kidney injury) benign growth on prostate History of squamous cell carcinoma History of basal cell carcinoma History of kidney stones Hypertension Arthritis Seasonal allergies Surgical History S/P knee replacement Hx of colonoscopy Hx of wisdom tooth extraction History of bilateral cataract extraction Hx of tonsillectomy Family History Father Hypertension Brother Hypertension CVA (cerebral vascular accident) Mother Hypertension CVA (cerebral vascular accident) Grandmother Cancer Social History Smoking Status: Never smoker alcohol intake: current alcohol intake frequency: a few times a month substance use type: does not use what type of physical activity do you participate in: walking frequency: daily HPI LEFT KNEE Details: This documentation accurately reflects the service provided and the decisions made by me, Dr. Loyd Watters, DO 06/08/25 0817. Part of today???s visit was documented by Maame HULL, acting as scribe. ANTONI GOLDSMITH is a 75 year old M here today for continued left knee pain. He did have an injury to the knee about 13 years ago where he was diagnosed with a meniscus tear and bakers cyst in the knee. He was thinking that the cyst was coming back and was having tightness over the posterior knee. When he was having the tightness he was also having a lot of pain which it made it hard for him to walk. Today he states that the pain is better but is still there. He would like to possibly have the left knee replaced in the winter. He does have clicking and grinding in the knee. He does take Meloxicam in the evening for pain which does help. He did have some stiffness and swelling in the knee which has subsided. The majority of his pain is on the medial and lateral side of the knee. He is requesting to have an injection in the left knee until winter. Ortho Exam General General: Yes no acute distress and Yes well groomed Neurologic: Yes alert and Yes oriented x3 Psychologic: Yes reasonable and appropriate Left Knee Skin/Wound: No ecchymosis, No erythema and No swelling Knee ROM: Yes ROM-Extension -20 to 0 and Yes ROM-Flexion 0-140 (108) Examination: No med jt line tenderness and No Lat jt line tenderness Stability: NML: Panchito, NML: Posterior Drawer, NML: Valgus 0, NML: Valgus 30 (3mm medial gapping), NML: Varus 0 and NML: Varus 30 KNEE: no effusion Palpable but not tender small Villegas's cyst Office Procedures Ortho Injections Injections Yes Knee Left Is this a patient provided medication?: No Details: Obtained consent for injection. Under sterile conditions, injected the patients left knee with 1.5cc bupivacaine 1.5cc lidocaine 1cc depo medrol. The patient tolerated the injection well without any noted complication. Patient should call our office if redness develops, pain worsens or if they have any concerns. Office Meds Depo-Medrol 40 mg/mL suspension for injection Performing Provider: Loyd Watters DO Performing Location: [facility] Administered by: Loyd Watters DO on 06/08/25 11:17 Dose Route (more content not included)... Normal [facility] Orthopedic Visit Reporton Orthopedic Visit Report [facility] [address] [place], [place] [address] OFFICE VISIT Date of Service: 04/13/25 MR#: [id number] Acct: [id number] Name: ANTONI GOLDSMITH Rep #: [id number] : 1950 Provider: Dr. Loyd manuel DO Age/Sex: 75/M Location: [facility] [place] Status: Signed Intake Vital Signs 12/04/24 14:37 01/29/25 14:21 04/09/25 13:16 04/13/25 11:03 Height 5 ft 9 in 5 ft 9 in 5 ft 9 in 5 ft 9 in Weight: 221 lb 218 lb BMI 32.6 32.1 BP 122/62 H Blood Pressure Location Lt brachial Position Sitting Respiration 16 Pulse 87 Pulse Source Monitor Temp 97.9 F Temp Source Temporal Pulse Oximetry (%) 99 Oxygen Delivery Method room air Intake Visit Reasons: right knee Chief Complaint: 6 week post op Accompanied by: Self Is patient in pain?: No Allergies doxycycline Allergy (Severe, Verified 04/13/25 11:05) swelling latex Allergy (Intermediate, Verified 04/13/25 11:05) rash Medications ???Medication ???Instructions ???Recorded ???Confirmed ???Type doxazosin 4 mg tablet 4 mg PO BID 3 months #180 tabs 04/13/25 Rx amlodipine 10 mg tablet 10 mg PO QHS #90 tabs 02/23/25 Rx allopurinol 100 mg tablet 100 mg PO QDAY #90 tabs 03/29/25 0 04/13/25 Rx lisinopril 20 2 tab PO DAILY #180 tabs 04/04/25 04/13/25 Rx mg-hydrochlorothiazide 12.5 mg tablet meloxicam 15 mg tablet 15 mg PO QDAY PRN 04/09/25 5 History Have you fallen in the past year?: No PFSH Medical History (Updated 04/13/25 @ 11:[address] Loyd Watters DO) Bilateral foot pain Loss of hearing Wears glasses Alcohol use History of steroid therapy Arthritis Gout High cholesterol Injury of head and neck History of ulceration Heartburn Non-smoker History of pain when walking History of edema History of stress test Elevated PSA BPH (benign prostatic hyperplasia) Bilateral primary osteoarthritis of knee ESTRELLA (acute kidney injury) benign growth on prostate History of squamous cell carcinoma History of basal cell carcinoma History of kidney stones Hypertension Arthritis Seasonal allergies Surgical History (Updated 04/09/25 @ 13:15 by Mikki West MA) S/P knee replacement Hx of colonoscopy Hx of wisdom tooth extraction History of bilateral cataract extraction Hx of tonsillectomy Family History Father Hypertension Brother Hypertension CVA (cerebral vascular accident) Mother Hypertension CVA (cerebral vascular accident) Grandmother Cancer Social History Smoking Status: Never smoker alcohol intake: current alcohol intake frequency: a few times a month substance use type: does not use what type of physical activity do you participate in: walking frequency: daily HPI right knee Details: This documentation accurately reflects the service provided and the decisions made by me, Dr. Loyd Watters, DO 04/13/25 0807. Part of today???s visit was documented by Ghulam Anderson MA, acting as scribe. ANTONI GOLDSMITH is a 75 year old M here today for 6 week post op, right TKA, dos 03/06/25 Patient is here for a 6 week post op. He states that he is doing physical therapy at [facility]. Patient states that he is doing well, he is seeing a lot of improvement. He has 2 more sessions next week. He does have some muscle soreness in the right thigh. Ortho Exam General General: Yes no acute distress Neurologic: Yes alert and Yes oriented x3 Psychologic: Yes reasonable and appropriate Right Knee Skin/Wound: No erythema, No ecchymosis and No swelling Knee ROM: Yes ROM-Extension -20 to 0 (-7) and Yes ROM-Flexion 0-140 (115) Stability: NML: Valgus 0, NML: Valgus 30, NML: Varus 0 and NML: Varus 30 KNEE: Neurovascular intact right lower extremity incision well-healed no signs of infection or DVT Supplemental Info 04/12/2025 x-ray right knee status post cemented total knee arthroplasty with good interfaces and position. 12/04/2024 uric acid upper limit of normal 7.0 12/04/2024 x-ray left index finger: Punched-out lytic lesions(rat-bite erosions) multiple joints consistent with gout 12/04/2024 x-ray right knee: Advanced medial compartment osteoarthritis moderate patellofemoral 12/04/2024 x-ray left knee: advanced medial compartment osteoarthritis, mod/severe patellofemoral 11/13/2020 x-ray Right knee advanced medial compartment knee arthrosis, moderate to severe patellofemoral arthrosis 11/13/2020 xray left knee: Moderate patellofemoral arthrosis Moderate medial joint space narrowing and subchondral sclerosis Coding Level of Care Code Global Post Op Diagnoses Status post total right knee repla (more content not included)... Normal [facility] Knee 3 Viewson 04-12-2025 Knee 3 Views [facility] Services [address] [place], [place] [address] Knee 3 Views MR#: [id number] Acct: [id number] Name: ANTONI GOLDSMITH Rep #: [id number] : 1950 M 75 From: Hussein Mart PCP: Dr. Cate Sapp MD Status: DEP AMB Study: Knee 3 Views Date of Exam: 04/12/25 Exam# [id number] Ordering Dr: Loyd Watters DO PROCEDURE: KNEE 3 VIEWS 04/12/2025 REASON FOR EXAM: 6 WEEK FOLLOW UP TECHNIQUE: Three views of the right knee COMPARISON: 03/06/2025 RAD/Knee 3 Views IMPRESSION: Status post total right knee arthroplasty without hardware complications. No new acute fracture or dislocations. Mild diffuse soft tissue swelling. Minimal joint effusion. Reading Location: [id number] CC: Dr. Cate Sapp MD; Dr. 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 Normal [facility] Anion gap in Serum or Plasma Ordered By: Cate Sapp on 04-09-2025 Anion gap [Moles/Vol] 14 mmol/L 04-05 [facility] BUN/creatinine ratioOrdered By: Cate Sapp on 04-09-2025 Urea nitrogen/Creatinine [Mass ratio] 13.7 mg/mg - [facility] Basic Metabolic Profile (BMP )on 04-09-2025 BUN/CRE 13.7 RATIO Normal - [facility] Comment on above: Performed By: #### L 501.1400, L500.2500 ####[facility] [address] [place], [address] Calcium [Mass/Vol] 9.8 mg/dL Normal 7.6-11.0 [facility] Comment on above: Performed By: #### L 501.1400, L500.2500 ####[facility] [address] [place], [address] Chloride [Moles/Vol] 101 mmol/L Normal 98-108 [facility] Comment on above: Performed By: #### L 501.1400, L500.2500 ####[facility] [address] [place], [address] CO2 [Moles/Vol] 20.7 mmol/L Low 21.0-32.0 [facility] Comment on above: Performed By: #### L 501.1400, L500.2500 ####[facility] [address] [place], [address] Creatinine [Mass/Vol] 0.94 mg/dL Normal 0.70-1.20 [facility] Comment on above: Performed By: #### L 501.1400, L500.2500 ####[facility] [address] [place], [address] GAP 14 Normal 5-15 [facility] Comment on above: Performed By: #### L 501.1400, L500.2500 ####[facility] [address] [place], [address] GFR/1.73 sq M.predicted among non-blacks MDRD (S/P/Bld) [Vol rate/Area] 85 mL/min/{1.73_m2} Normal >60 [facility] Comment on above: Result Comment: mL/m in/1.73m2 CKD-EPI Creatinine Equation (2020) Performed By: #### L 501.1400, L500.2500 ####[facility] [address] [place], [address] Glucose [Mass/Vol] 90 mg/dL Normal 70-99 [facility] Comment on above: Performed By: #### L 501.1400, L500.2500 ####[facility] [address] [place], [address] Potassium [Moles/Vol] 3.9 mmol/L Normal 3.3-5.1 [facility] Comment on above: Performed By: #### L 501.1400, L500.2500 ####[facility] [address] [place], [address] Sodium [Moles/Vol] 137 mmol/L Normal 133-145 [facility] Comment on above: Performed By: #### L 501.1400, L500.2500 ####[facility] [address] [place], [address] Urea nitrogen [Mass/Vol] 13 mg/dL Normal 4-19 [facility] Comment on above: Performed By: #### L 501.1400, L500.2500 ####[facility] [address] [place], [address] Carbon dioxide, total [Moles /volume] in Central venous bloodOrdered By: Cate Sapp on 04-09-2025 CO2 [Moles/Vol] 20.7 mmol/L Low 21.0-32.0 [facility] Chloride assayOrdered By: Mavis Sapp on 04-09-2025 Chloride [Moles/Vol] 101 mmol/L 98-108 [facility] Glomerular filtration rate ( GFR) estimation/1.73 sq m using serum, plasma, or whole bOrdered By: Cate Sapp on 04-09-2025 GFR/1.73 sq M.predicted among non-blacks MDRD (S/P/Bld) [Vol rate/Area] 85 mL/min/{1.73_m2} >60 [facility] Comment on above: mL/min/1.73m2 CKD-EP I Creatinine Equation (2020) Internal Medicine Office Vis itosamantha 04-09-2025 Internal Medicine Office Visit [facility] [address] [place] [address] [place] [address] OFFICE VISIT Date of Service: 04/09/25 MR#: [id number] Acct: [id number] Name: ANTONI GOLDSMITH Rep #: [id number] : 1950 Provider: Dr. Cate dan MD Age/Sex: 75/M Location: [facility] Status: Signed Intake Vital Signs 10/09/24 13:35 03/19/25 13:28 04/09/25 13:16 Height 5 ft 9 in 5 ft 9 in 5 ft 9 in Weight: 221 lb BMI 32.6 BP 122/62 H Blood Pressure Location Lt brachial Position Sitting Respiration 16 Pulse 87 Pulse Source Monitor Temp 97.9 F Temp Source Temporal Pulse Oximetry (%) 99 Oxygen Delivery Method room air Intake Visit Reasons: 6 M FU Chief Complaint: Follow-up chronic conditions Color Dipper Required: No Is patient in pain?: No Allergies doxycycline Allergy (Severe, Verified 04/09/25 13:12) swelling latex Allergy (Intermediate, Verified 04/09/25 13:12) rash Medications ???Medication ???Instructions ???Recorded ???Confirmed ???Type doxazosin 4 mg tablet 4 mg PO BID 3 months #180 tabs 04/09/25 Rx amlodipine 10 mg tablet 10 mg PO QHS #90 tabs 02/23/25 Rx allopurinol 100 mg tablet 100 mg PO QDAY #90 tabs 03/29/25 0 04/09/25 Rx lisinopril 20 2 tab PO DAILY #180 tabs 04/04/25 04/09/25 Rx mg-hydrochlorothiazide 12.5 mg tablet meloxicam 15 mg tablet 15 mg PO QDAY PRN 04/09/25 5 History Have you fallen in the past year?: No PFSH Medical History Bilateral foot pain Loss of hearing Wears glasses Alcohol use History of steroid therapy Arthritis Gout High cholesterol Injury of head and neck History of ulceration Heartburn Non-smoker History of pain when walking History of edema History of stress test Elevated PSA BPH (benign prostatic hyperplasia) Bilateral primary osteoarthritis of knee ESTRELLA (acute kidney injury) benign growth on prostate History of squamous cell carcinoma History of basal cell carcinoma History of kidney stones Hypertension Arthritis Seasonal allergies Surgical History (Updated 04/09/25 @ 13:15 by Mikki West MA) S/P knee replacement Hx of colonoscopy Hx of wisdom tooth extraction History of bilateral cataract extraction Hx of tonsillectomy Family History Father Hypertension Brother Hypertension CVA (cerebral vascular accident) Mother Hypertension CVA (cerebral vascular accident) Grandmother Cancer Social History Smoking Status: Never smoker alcohol intake: current alcohol intake frequency: a few times a month substance use type: does not use what type of physical activity do you participate in: walking frequency: daily HPI HPI Chief Complaint: Follow-up chronic conditions Details: ANTONI GOLDSMITH, is a 75 M who presents to the office today for follow-up of his chronic medical conditions. No acute concerns at this time. Status post right knee replacement. Surgery was uneventful and he states that he is doing well. Therapy said to be going well range of motion almost at goal. No new concerns in that regard. History of gout on allopurinol. He states that he has had no further concerns with gout since going on allopurinol. Tolerating medication well. Also history of hypertension, blood pressure today at 122/62 mmHg. No chest pain, palpitation or shortness of breath. ROS Const Constitutional: No body ache, chills, excessive sweating, fatigue, fever(s), frequent falls, headache(s), snoring, weakness, sleep problems or change in appetite Eyes Eyes: No blurry vision, change in vision, bulging eyes, floaters, visual disturbances, eye pain or Light sensitivity ENT ENT: No abnormal hearing, ear or mastoid pain, tinnitus, balance problems, nosebleed/epistaxis, nasal congestion, headache(s), neck pain or sore throat Resp Respiratory: No cough, excessive phlegm production, pain on inspiration, shortness of breath, snoring or wheezing Cardio Cardiology: No chest pain at rest, chest pain with exertion, excessive sweating, shortness of breath, dyspnea on exertion, lightheadedness, orthopnea or palpitations Gastro GI: No abdominal pain, change in bowel habits, constipation, cramping, diarrhea, nausea/dyspepsia or vomiting Genitourinary Male: No burning urination, painful urination, urinary incontinence, urinary frequency, suprapubic fullness or side pain Musc Musculoskeletal: No abnormal gait, joint pain, back pain, limited range of motion, neck pain or numbness Skin Skin: No dry skin, redness, excessive hair growth, yellowing of the eye, lesions, itchy eyes, rash or wounds Neuro Neurology: N (more content not included)... Normal [facility] Potassium measurement (mass/ volume)Ordered By: Cate Sapp on 04-09-2025 Potassium (Unsp spec) [Mass/Vol] 3.9 mmol/L 3.3-5.1 [facility] Serum creatinine measurement (mass/volume)Ordered By: Cate Sapp on 04-09-2025 Creatinine [Mass/Vol] 0.94 mg/dL 0.70-1.20 [facility] Serum glucose measurement (m ass/volume)Ordered By: Cate Sapp on 04-09-2025 Glucose [Mass/Vol] 90 mg/dL 70-99 [facility] Serum or plasma calcium shanika urement (mass/volume)Ordered By: Cate Sapp on 04-09-2025 Calcium [Mass/Vol] 9.8 mg/dL 7.6-11.0 [facility] Serum or plasma urea nitroge n measurement (mass/volume)Ordered By: Cate Sapp on 04-09-2025 Urea nitrogen [Mass/Vol] 13 mg/dL 4-19 [facility] Serum or plasma uric acid me asurement (mass/volume)Ordered By: Cate Sapp on 04-09-2025 Urate [Mass/Vol] 6.9 mg/dL 3.5-7.2 [facility] Comment on above: The drugs N-Acetylcy steine and Metamizole may falsely depress this assay. Sodium levelOrdered By: Bryan Sapp on 04-09-2025 Sodium [Moles/Vol] 137 mmol/L 133-145 [facility] Uric Acidon 04-09-2025 URIC 6.9 mg/dL Normal 3.5-7.2 [facility] Comment on above: Result Comment: The drugs N-Acetylcysteine and Metamizole may falsely depress this assay. Performed By: #### L 501.1400, L500.2500 ####[facility] [address] [place], [place], [id number] Re-Evaluation - PT (1)on Re-Evaluation - PT (1) [facility] Physical Therapy [facility] [address] [place] [address]. [address] [place] [address] / REEVALUATION / MEDICARE RECERTIFICATION PHYSICAL THERAPY MR#: [id number] Acct: [id number] Name: ANTONI GOLDSMITH Rep #: [id number] : 1950 75 From: Daljit Villela DPT Referring Dr.: Dr. Loyd Watters DO Status:REG RCR Insurance: [employer]URANCE Re-Evaluation Intro: Dr. Loyd Watters, DO, It has been my pleasure to treat ANTONI GOLDSMITH over the last 12 visits for R TKA, DOS:03/06/25. Please see the progress note below for an update on the physical therapy plan of care! Subjective Subjective: pt. reports overall doing better. No much pain, but still feels tight. Pt. was able to get out with his grand kids the other day without much issue. Objective Objective/Function: ROM: 0-5-110deg with over pressure, 0-5-105deg with active motion MMT: R quad 33.1#, L quad 31.4# GAIT: pt. ambulates with lack of TKE during R stance phase. Pt. has decent knee flexion during swing phase. STAIRS: Pt. is able to complete with reciprocal pattern but does heavily use railings to complete. Pt. does have early heel off on R side during descending. Antoni is still tight with end range flexion and extension. I would really like him to work on improving this in order to allow him to walk better and to increase his able to negotiate stairs. Plan Plan Plan: I asking for 6 more visits to work on end range of motions, both extension and flexion. His strength is progressing well, I would like him to have a bit better ROM of his R knee. Balance/Gait/Functional tests Balance/Special Test Scores TUG Test Time Seconds: 12.1 Tug Test: <20 sec.=mostly independent 30 Second Chair Rise Test Seconds: 11 WOMAC Total Score: 24 WOMAC Percentage: 75.0000 Goals Goals Goal 1:: LTG: Pt. to be I with HEP for RLE ROM and strength. Goal Time Frame: 6-8 Weeks Goal Progress: Progressing Goal 2:: STG: Pt.to have symmetrical girth at mid patella for BLEs indicating reduced RLE edema. Goal Time Frame: 2-4 Weeks Goal Progress: Goal Met Goal 3:: LTG: Pt. to have increased R knee ROM to 0-0-120deg allowing for increased ability to complete all stair negotiation and functional mobility. Goal Time Frame: 4-6 Weeks Goal Progress: Progressing Goal 4:: LTG: pt. to ambulate with normal gait pattern without AD without increase in R knee pain. Goal Time Frame: 4-6 Weeks Goal Progress: Progressing Goal 5:: LTG: Pt. to complete TUG with out AD with time less than 10seconds indicating proper functional mobility. Goal Time Frame: 4-6 Weeks Goal Progress: Progressing Goal 6:: LTG: pt. to complete 30sec sit to stand rep test with at least 15 reps indicating proper LE functional strength. Goal Progress: Progressing Anticipated Interventions Anticipated Interventions Patient/Client Instruction: Educate patient on: Condition, Plan of Care, Risk Factors and Benefits of Fitness Program For the Purpose of:: To improve health and function, To foster healthy habits, To improve decision making, To facilitate caregiver knowledge, To improve self management, To prevent re-injury and To improve ability to perform tasks related to life management Therapeutic Exercise to Include: Strength training, Power training, Endurance training, Postural training, Flexibilty training, Gait and locomotor training, Passive ROM and Active ROM For the Purpose of:: To decrease pain, To decrease swelling/inflammation, To increase ROM, To improve nutrient delivery to tissue, To increase oxygenation perfusion, To improve muscle performance and motor function, To improve ability to perform ADL's, To increase tolerance to activity/condition/posit ion, To improve gait and locomotor functions, To improve health of tissue, To decrease soft tissue restriction and To increase flexibility/ROM Manual Therapy Techniques to Include: Mobilization and Soft tissue mobilization For the Purpose of:: To decrease pain, To decrease swelling/inflammation, To increase ROM, To improve nutrient delivery to tissue, To increase oxygenation perfusion and To improve muscle performance and motor function Cryotherapy (ice pack, ice massage): Yes Vasopneumatic device: Yes For the Purpose of:: To decrease pain, To decrease swelling/inflammation, To increase ROM, To improve nutrient delivery to tissue, To increase oxygenation perfusion and To improve muscle performance and motor function Re-Evaluation Ending Re-evaluation ending: Please do not hesitate to contact me at [phone] by phone or if you have questions or concerns regarding this new plan of care! Sincerely, KELLI TaylorT 04/06/25 0984 CC: Dr. Cate Sapp MD; Dr. Loyd Watters DO CLS Signed (more content not included)... Normal [facility] Orthopedic Visit Reporton Orthopedic Visit Report [facility] [address] [place], [place] [phone] OFFICE VISIT Date of Service: 03/19/25 MR#: [id number] Acct: [id number] Name: RUPALANTONI RAUL Rep #: [id number] : 1950 Provider: Dr. Loyd manuel DO Age/Sex: 74/M Location: [facility] [place] Status: Signed Intake Vital Signs 12/04/24 14:37 01/29/25 14:21 03/06/25 06:35 03/19/25 13:28 Height 5 ft 9 in 5 ft 9 in 5 ft 9 in 5 ft 9 in Weight: 218 lb BMI 32.1 Intake Visit Reasons: right knee Chief Complaint: Right knee 2 week post op Accompanied by: Is patient in pain?: Yes Pain scale (1-10): 2 Allergies doxycycline Allergy (Severe, Verified 03/19/25 13:30) swelling latex Allergy (Intermediate, Verified 03/19/25 13:30) rash Medications ???Medication ???Instructions ???Recorded ???Confirmed ???Type lisinopril 20 2 tab PO DAILY #180 tabs 04/18/24 03/19/25 Rx mg-hydrochlorothiazide 12.5 mg tablet doxazosin 4 mg tablet 4 mg PO BID 3 months #180 tabs 03/19/25 Rx allopurinol 100 mg tablet 100 mg PO QDAY #30 tabs 02/07/25 0 03/19/25 Rx amlodipine 10 mg tablet 10 mg PO QHS #90 tabs 02/23/25 Rx apixaban 2.5 mg tablet (Eliquis) 2.5 mg PO BID #28 tabs 03/06/25 Rx cephalexin 500 mg capsule 1,000 mg (2 x 500 mg) PO Q8H #4 03/19/25 Rx caps Have you fallen in the past year?: No PFSH Medical History Bilateral foot pain Loss of hearing Wears glasses Alcohol use History of steroid therapy Arthritis Gout High cholesterol Injury of head and neck History of ulceration Heartburn Non-smoker History of pain when walking History of edema History of stress test Elevated PSA BPH (benign prostatic hyperplasia) Bilateral primary osteoarthritis of knee ESTRELLA (acute kidney injury) benign growth on prostate History of squamous cell carcinoma History of basal cell carcinoma History of kidney stones Hypertension Arthritis Seasonal allergies Surgical History Hx of colonoscopy Hx of wisdom tooth extraction History of bilateral cataract extraction Hx of tonsillectomy Family History Father Hypertension Brother Hypertension CVA (cerebral vascular accident) Mother Hypertension CVA (cerebral vascular accident) Grandmother Cancer Social History Smoking Status: Never smoker alcohol intake: current alcohol intake frequency: a few times a month substance use type: does not use what type of physical activity do you participate in: walking frequency: daily HPI right knee Details: This documentation accurately reflects the service provided and the decisions made by me, Dr. Loyd Watters, DO 03/19/25 0813. Part of today???s visit was documented by Ghulam Anderson MA, acting as scribe. ANTONI GOLDSMITH is a 74 year old M here today for s/p right total knee arthroplasty DOS 03/06/2025. Patient has been doing physical therapy. [facility], and has been doing good. Patient has noticed a lot of improvement with physical therapy. Patient has not been taking any pain medication he did not feel like he needed it. He has not taken off his original postoperative dressing. Ortho Exam General General: Yes no acute distress and Yes well groomed Neurologic: Yes alert and Yes oriented x3 Psychologic: Yes reasonable and appropriate Right Knee Skin/Wound: Yes healing, Yes suture/elvin removed, No erythema, No ecchymosis and No swelling Knee ROM: No ROM-Extension -20 to 0 (-7) and No ROM-Flexion 0-140 (80) Stability: NML: Valgus 0, NML: Valgus 30, NML: Varus 0 and NML: Varus 30 Patella Translation: 1 KNEE: lacking 7 degrees EXT Left Knee Patella Translation: 1 Supplemental Info 12/04/2024 uric acid upper limit of normal 7.0 12/04/2024 x-ray left index finger: Punched-out lytic lesions(rat-bite erosions) multiple joints consistent with gout 12/04/2024 x-ray right knee: Advanced medial compartment osteoarthritis moderate patellofemoral 12/04/2024 x-ray left knee: advanced medial compartment osteoarthritis, mod/severe patellofemoral 11/13/2020 x-ray Right knee advanced medial compartment knee arthrosis, moderate to severe patellofemoral arthrosis 11/13/2020 xray left knee: Moderate patellofemoral arthrosis Moderate medial joint space narrowing and subchondral sclerosis Coding Level of Care Code Global Post Op Diagnoses Status post total right knee replacement Z96.651 Assessment and Plan Assessment and Plan (1) Status post total right knee replacement: Status: Acute Orders (more content not included)... Normal [facility] Inital Evaluation (1) - PTon 03-12-2025 Inital Evaluation (1) - PT [facility] Physical Therapy [facility] [address] [place] [address] / REHABILITATION SERVICES INITIAL EVALUATION MR#: [id number] Acct: [id number] Name: ANTONI GOLDSMITH Rep #: [id number] : 1950 74 From: Daljit Villela DPT Referring Dr.: Dr. Loyd Watters DO Status: R EG RCR Insurance: [employer] INSURANCE Patient's Visit Information Visit Information Visit Information: ANTONI GOLDSMITH is a 74 year old M referred to Physical Therapy by Dr. Loyd Watters DO with a diagnosis of R TKA, DOS:03/06/25. Date of Evaluation: 03/09/25 Physical Therapist: Daljit Villela DPT Visit Plan Frequency: 3x /Week Duration: 6 Weeks Plan: 1) R knee ROM progressing towards 0-0-120deg. 2) edema control 3) Increase RLE strength progressing to functional strengthening 3) gait progression and stair negotiation. Subjective Subjective: Pt. is here today for his initial evaluation with diagnosis of R TKA, DOS: 03/06/25. Pt. arrives today with use of FWW with good tolerance. PT. reports overall doing well. Pt. no N/T, no calf pain and no difficulty with breathing. Pt. reports that both knees were bad and will most likely have to have the L knee replaced as well. pt. has been doing some of his exercises at home with good tolerance. Pt. is retired, but would like to be able to complete all daily activities with limitations. Pt. is sleeping well without issues. He is having some trouble getting his leg straight and bend, but was able to ride in his jeep to PT this date. No fever and no drainage noted. Pain R knee: Pain Intensity (Out of 10): 4 Pain Intensity Range: 3 and 8 Objective Objective: POSTURE: Pt. lacks TKE on RLE in stance with increased L sided wt. shift. PALPATION: Pt. has no pitting edema noted. Pt. has a bandage in place, negative homans sign. NEURO: normal throughout. ROM: R knee: 0-9-94deg. Pt. has pain and tightness at both end ranges. Tight HS as well. MMT: LLE: knee: ext 38#, flexion 21#; hip: flexion 23.9# RLE: knee: Ext 0#, flexion 8#; hip: flexion 0# GAIT: Pt. ambulates with FWW with good tolerance. Pt. has has decreased step length bilaterally. Pt. heavily uses AD to off load his R LE. STAIRS: step to pattern noted with use of bilateral HR. Balance/Special Test Scores TUG Test Time Seconds: 28.8 30 Second Chair Rise Test Seconds: 7 WOMAC Total Score: 72 WOMAC Percentatge: 25.0000 Goals Goal 1:: LTG: Pt. to be I with HEP for RLE ROM and strength. Goal Time Frame: 6-8 Weeks Goal 2:: STG: Pt.to have symmetrical girth at mid patella for BLEs indicating reduced RLE edema. Goal Time Frame: 2-4 Weeks Goal 3:: LTG: Pt. to have increased R knee ROM to 0-0-120deg allowing for increased ability to complete all stair negotiation and functional mobility. Goal Time Frame: 4-6 Weeks Goal 4:: LTG: pt. to ambulate with normal gait pattern without AD without increase in R knee pain. Goal Time Frame: 4-6 Weeks Goal 5:: LTG: Pt. to complete TUG with out AD with time less than 10seconds indicating proper functional mobility. Goal Time Frame: 4-6 Weeks Goal 6:: LTG: pt. to complete 30sec sit to stand rep test with at least 15 reps indicating proper LE functional strength. Rehabilitation Potential Physical Therapy Diagnosis: Pt. has signs and symptoms consistent with R TKA, DOS:03/06/25. Pt has marked hypomobility, weakness, difficulty walking, increased pain and would benefit from PT to address the above limitation progressing back to all previous levels of function without issues. Rehabilitation Potential: Excellent Anticipated Interventions Patient/Client Instruction: Educate patient on: Condition, Plan of Care, Risk Factors and Benefits of Fitness Program For the Purpose of:: To improve health and function, To foster healthy habits, To improve decision making, To facilitate caregiver knowledge, To improve self management, To prevent re-injury and To improve ability to perform tasks related to life management Therapeutic Exercise to Include: Strength training, Power training, Endurance training, Postural training, Flexibilty training, Gait and locomotor training, Passive ROM and Active ROM For the Purpose of:: To decrease pain, To decrease swelling/inflammation, To increase ROM, To improve nutrient delivery to tissue, To increase oxygenation perfusion, To improve muscle performance and motor function, To improve ability to perform ADL's, To increase tolerance to activity/condition/posit ion, To improve gait and locomotor functions, To improve health of tissue, To decrease soft tissue restriction and To increase flexibility/ROM Manual Therapy Techniques to Include: Mobilization and Soft tissue mobilization For the Purpose of:: To decrease pain, To decrease swelling/inflammation, To increase ROM, To improve nutrient delivery to ti (more content not included)... Normal [facility] Bedside Glucoseon 03-06-2025 FINGERSTICK GLU 166 mg/dL High 74-106 [facility] Comment on above: Result Comment: ILENE RAMIREZ OF PATIENT CARE PER NURSING PROTOCOL Performed By: #### L 501.080 #### [facility] Laboratory [address] [place], [address] Decalcification bone/plaqueo n 03-06-2025 Decalcification bone/plaque Patient Age/Sex Location Account Attending Physician ANTONI GOLDSMITH 74/M [facility] [id number] Dr. Loyd Watters, Specimen: [id number] Received: 03/06/25 Status: CJ Villarshannan Num: [id number] Spec Type: TOTAL KNEE Subm Dr: Dr. Loyd Watters DO [facility] OPERATION: ERAS, right total knee replacement robotic arm assisted PRE-OP DIAGNOSIS: Right knee degenerative joint disease TISSUE SUBMITTED: A- Right knee bone MICROSCOPIC DIAGNOSIS A. Right knee, degenerative joint disease, arthroplasty: * Benign cartilage and bone with degenerative changes MICROSCOPIC DESCRIPTION Slides are reviewed. GROSS DESCRIPTION A. Received in formalin in a container labeled with the patient's name, date of , and right knee bone are multiple arteaga, firm, and irregular fragments of bone with minimal soft tissue measuring 10.5 x 8.5 x 4.3 cm in aggregate. The specimen consists of, but is not limited to, medial/lateral condyle and tibial plateau. The resection margins are smooth, and firm and the cortical surfaces are pitted and granular with smooth eburnation. Sectioning reveals firm surfaces. Offal Trimmer sections submitted in A1 following decalcification. [facility] 03/09/2025 CPT:14250,02223 Patient Age/Sex Location Account Attending Physician ANTONI GOLDSMITH 74/M [facility] [id number] Dr. Loyd Watters, DO Signed (signature on file) Dr. Maria R Weinstein DO 03/09/25 1346 Normal [facility] Comment on above: Performed By: #### P DEC ####[facility] [id number] [place], [address] Discharge Instructionon 02-20 Discharge Instruction [facility] Medical Records Department [address] [place] [address] Instructions for Home/Discharge Instructions 03/06/25 1045 MR#: [id number] Acct: [id number] Name: ANTONI GOLDSMITH Rep #: [id number] : 1950 74 From: Loyd Watters DO PCP: Dr. Cate Sapp MD Status:REG [facility] Discharge Instructions Diet Discharge Diet: No restrictions (Gout dietary precautions) Activity Weight Bearing Status: Full weight bearing Keep extremity elevated above heart level: Operative Extremity Dressing / Incision Call your doctor if you observe: Shortness of breath and Chest pain Additional Dressing/Incision Instructions:: Ice and elevate lower extremities 2 weeks while not ambulating. Ambulation is encouraged. Weight bearing as tolerated. Use assistive devise for stability. Encourage FULL knee extension and flexion 1 time EVERY time you get up and down and MULTIPLE times per day. No showering until 72 hours after surgery. May begin showering postop day #3. Remove the dressing prior to shower and gently wash with warm water and antibacterial soap then pat dry and place abdominal pad (or plain gauze) and VANESSA hose over top. If you decide not to begin showering 72 hrs post operatively and wish to sponge bath only, then you may leave dressing undisturbed for up to 1 week, but must remove prior to first shower. Do not submerge for 3 weeks. If not showering daily after the initial dressing is removed you must clean incision and change dressing daily after the dressing comes off, must come off by 7 days postop. Do not allow animals near the incision area. Keep clean. Follow anti-coagulation recommendations as prescribed. Do not take any NSAIDs while on blood thinner. Do not take any additional narcotic pain medication other than what was prescribed on your surgery day without discussing with physician. Narcotic medication can be addictive. Do not drink alcohol while taking narcotics. Supplement narcotic prescription with acetaminophen 1000 mg 4 times a day. Start physical therapy. If you are not currently scheduled for physical therapy or you are unsure of appointment time please call office YANDEL to arrange. Call Dr. Watters's office ) with any concerns. Follow Up Care Please Follow Up With: Loyd Watters DO When: 2 weeks Test Results: Test results from this visit will be discussed in further detail at your follow-up appointment, if applicable. Discharge Plan Admission Primary Reason for Your Visit: Right total knee arthroplasty Attending Provider: Loyd Watters Primary Care Provider: Cate Sapp Instructions Print Language: Burmese Discharge Orders/Prescriptions Prescriptions: New acetaminophen 500 mg tablet 1,000 mg PO Q6H Qty: 100 0RF cephalexin 500 mg capsule 1,000 mg PO Q8H Qty: 4 0RF Rx Instructions: Take 2 tabs before you go to bed and 2 tabs after 5 AM morning after surgery when you wake up Eliquis 2.5 mg tablet 2.5 mg PO BID Qty: 28 0RF Rx Instructions: Begin morning after surgery. oxycodone 5 mg tablet 5 - 10 mg PO Q4H PRN (Reason: pain) 7 Days Qty: 60 0RF Continued lisinopril-hydrochloroth iazide 20-12.5 mg tablet 2 tab PO DAILY Qty: 180 3RF doxazosin 4 mg tablet 4 mg PO BID 90 Days Qty: 180 3RF allopurinol 100 mg tablet 100 mg PO QDAY Qty: 30 1RF amlodipine 10 mg tablet 10 mg PO QHS Qty: 90 1RF Held meloxicam 15 mg tablet 15 mg PO DAILY PRN (Reason: pain) Hold Instructions: May resume after completion of blood thinner Referrals / Follow Up: Cate Sapp MD [Primary Care Provider] - Disposition Disposition (needs filled in before D/C Order can be placed): Home, Self Care 03/06/25 1050 Loyd Watters DO CC: Dr. Cate Sapp MD Signed Normal [facility] deOrdered By: Loyd Watters on 03-06-2025 Bedside Glucose (Misc Panel) 166 mg/dL High 74-106 [facility] Comment on above: MANAGEMENT OF PATIEN T CARE PER NURSING PROTOCOL Glucose [Mass/Vol] 166 mg/dL High 74-106 [facility] Comment on above: MANAGEMENT OF PATIEN T CARE PER NURSING PROTOCOL Knee 1 or 2 Viewson 03-06-20 Knee 1 or 2 Views [facility] Imaging Services [address] [place], [place] [address] Knee 1 or 2 Views MR#: [id number] Acct: [id number] Name: ANTONI GOLDSMITH Rep #: [id number] : 1950 M 74 From: Gómez Gray MD PCP: Dr. Cate Sapp MD Status: REG SD Study: Knee 1 or 2 Views Date of Exam: 03/06/25 Exam# [id number] Ordering Dr: Loyd Watters DO PROCEDURE: KNEE 1 OR 2 VIEWS 03/06/2025 REASON FOR EXAM: POSTOP PACU TECHNIQUE: 2 view(s) of the right knee FINDINGS: Status post right knee replacement with patellar resurfacing appears intact and anatomic. No fracture or dislocation. Soft tissue and intra-articular air with overlying skin elvin. Enthesopathic change at the anterior tuberosity and patella. RAD/Knee 1 or 2 Views IMPRESSION: Status post right knee replacement with patellar resurfacing appears intact and anatomic. Reading Location: [facility] CC: Dr. Cate Sapp MD; Dr. 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 [facility] MR/POSTOP.ANEon 03-06-2025 MR/POSTOP.[facility] Medical Records Department [address] [place] [address] Anesthesia Postop Eval I 03/06/25 1227 MR#: [id number] Acct: [id number] Name: ANTONI GOLDSMITH Rep #: [id number] : 1950 74 From: Onofre Medellin CRNA PCP: Dr. Cate Sapp MD Status:REG [facility] Y Race: C Location: [place] [address] Anesthesia: Postop Eval I Current Vital Signs Temperature: 98 F Pulse Rate: 89 Blood Pressure: 132/59 Respiratory Rate: 14 Pulse Ox: 98 Oxygen Delivery Method: Room Air Assessment Airway patent: Yes Spontaneous unlabored respirations: Yes Mental status: Awake and Calm nausea: No Vomiting: No Anesthesia Complication: No Fluid Hydration Crystalloid volume administer (ml): 1,500 Total IV fluid infused: 1,500 Progress Note Anesthesia document: Postop Eval 1 completed: Yes 03/06/25 1227 Date Onofre Medellin PUBLIC SAFETY TELECOMMUNICATOR Cosigner Signature: Date CC: Signed Normal [facility] [id number] 03-06-2025 MR/POSTOPAN2 [facility] Medical Records Department [address] [place] [address] Anesthesia Postop Eval II 03/06/25 1623 MR#: [id number] Acct: [id number] Name: ANTONI GOLDSMITH Rep #: [id number] : 1950 74 From: Brannon Monsalve MD PCP: Dr. Cate Sapp MD Status:REG [facility]C Y Race: C Location: [address] Anesthesia Postop Eval I Sum Postop Eval Completion status Anesthesia document: Postop Eval 1 completed: Yes Anesthesia Postop Eval I Summary Anesthesia Postop Eval I Summary: Anesthesia Postop Eval I: Assessment Summary Airway patent Yes 03/06/25 12:27 PUBLIC SAFETY [email or web address] Spontaneous unlabored Yes 03/06/25 12:27 PUBLIC SAFETY [email or web address].[email or web address] respirations Mental status Awake,Calm 03/06/25 12:27 PUBLIC SAFETY [email or web address].[email or web address] nausea No 03/06/25 12:27 PUBLIC SAFETY TELECOMMUNICATOR.[email or web address] Vomiting No 03/06/25 12:27 PUBLIC SAFETY [email or web address].[email or web address] Anesthesia Postop Eval I: Fluid Summary Crystalloid volume administer 1,500 03/06/25 12:27 PUBLIC SAFETY [email or web address].[email or web address] (ml) Colloids volume administered ( ml) Blood Product volume administered (ml) Total IV fluid infused 1,500 03/06/25 12:27 PUBLIC SAFETY [email or web address].[email or web address] Anesthesia Postop Eval I: Summary Notes Anesthesia Complication No 03/06/25 12:27 PUBLIC SAFETY [email or web address].[email or web address] Anesthesia Complication Comment: Post-operative progress note Anesthesia: Postop Eval II Evaluation Mental status: Awake and Calm Pain Level: 2 nausea: No Vomiting: No Complications Anesthesia Complication: No 03/06/25 1624 Date Brannon Ivan Signature: Date CC: Signed Normal [facility] Operative Reporton 5 Operative Report [facility] Medical Records Department [address] [place] [address] Operative Report 03/06/25 1041 MR#: [id number] Acct: [id number] Name: ANTONI GOLDSMITH Rep #: [id number] : 1950 74 From: Loyd Watters DO PCP: Dr. Cate Sapp MD Status:[facility] Location: [place] [address] Operative Report (Standard) Operative Information Date of Procedure: 03/06/25 Pre-Operative Diagnosis: Right knee DJD Post-Operative Diagnosis: Same Surgery/Procedure Performed: Right total knee arthroplasty department clinician: Yes Spiritual Minister: Juan Manuel Hoffman Tasks completed by first officer and flight instructor: Opening closing Type of Anesthesia: Spinal RN Documented Start/Stop Times: Operation Date: 03/06/25 08:00 Case Time Into Pre-Op 03/06/25 06:07 Anesthesia Start 03/06/25 08:12 Into Room 03/06/25 08:12 Out of Pre-Op 03/06/25 08:12 Procedure Start 03/06/25 08:33 Procedure End 03/06/25 10:38 Anesthesia End 03/06/25 10:46 Out of Room 03/06/25 10:46 Procedure Start Time: 08:33 Procedure Stop Time: 10:38 Select all DRAINS/GRAFTS/IMPLANTS that apply: Prosthetic device Prosthetic device details: Obed triathlon hybrid press-fit femur cemented tibia and patella Estimated Blood Loss: 125 Specimen collected: Yes Description of specimen(s) removed: Bone Description of surgery: Preoperative diagnosis: Right knee DJD with flexion contracture and varus deformity and gout of the knee Postoperative diagnosis: Same Procedure: Right total knee arthroplasty CT guided Robotic Assisted Implant: [place] triathlon press fit, femoral component size5, tibial baseplate size 6 cemented, asymmetric patella size 35, polyethylene X3 size 9 CS Anesthesia: Spinal with adductor canal block Tourniquet time: 20 minutes at 300 mmHg Complications: None Condition: Stable to PACU Estimated blood loss: 125 cc Timber Treating Tank Operator Juan Manuel Hoffman. My physician digital marketing assistant was a vital part of this case. He was important in appropriate retraction during the case, and protection of soft tissues during procedure. His intimate knowledge of the case and my steps aided in safe and expedient completion of the procedure as well as appropriate position of the extremity during the case. He was also vital in assisting with closure under my direct supervision. Indication for procedure: This is a 74-year-old male with long standing degenerative joint disease and gout of the knee who has failed conservative treatment and wished to proceed with elective total knee arthroplasty. Risk benefits and alternatives were reviewed including; risk of bleeding, infection, nerve artery and tissue damage, continued pain, postoperative stiffness, venous thromboembolism, need for postoperative rehabilitation, mechanical feel to the knee, and expected postoperative course. The pre- operative CT and templating was performed with component sizing. Procedure: The patient was met in the preoperative holding area. The operative extremity was identified by both patient and physician and was marked. Patient was met by anesthesia. An adductor canal block was placed by anesthesia postoperatively the patient was brought back to the operating room on a wheeled cart and transferred to the operating table in the supine position. Anesthesia was started. A well-padded tourniquet was placed on the operative extremity. The patient was prepped and draped in the usual sterile fashion. A timeout was called to ensure the proper patient procedure and extremity were being contemplated. An esmarch was used to exsanguinate the extremity. The tourniquet was inflated. A 10 blade scalpel was used to make a midline incision down through the skin and subcutaneous tissue. Skin retractors placed. Bovie and Aquamantis were used to perform meticulous hemostasis. full-thickness flaps were elevated medial and lateral along the joint capsule. A deep blade scalpel was used to perform a medial parapatellar arthrotomy. The knee was brought to full extension. A bovie was used to release the soft tissues off the most proximal aspect of the medial tibial plateau, a three-quarter inch curved osteotome was also used in this process. The infrapatellar fat pad was excised. The suprapatellar fat pad was excised partially anteriorolateraly and portion the anterioromedial pad was elevated from the femur. At this point our intra-articular femoral array was placed at a 45 degree angle proximal and posterior to the medial epicondyle. femoral checkpoint was placed at this time. Our tibial array was placed partially intra incisional 1 stab incision was made for the inferior pin with a 15 blade scaple, and pins were placed and attached to the tibial array , tibial checkpoint was placed in the proximal tibial metaphysis. Tourniquet was let down. At this point registration catalan were taken throughout the knee . Once the knee (more content not included)... Normal [facility] Internal Medicine Office Vis iton 02-28-2025 Internal Medicine Office Visit [facility] [address] [place] [address] [place] [address] OFFICE VISIT Date of Service: 02/28/25 MR#: [id number] Acct: [id number] Name: ANTONI GOLDSMITH Rep #: [id number] : 1950 Provider: Dr. Cate dan MD Age/Sex: 74/M Location: [facility] Status: Signed Intake Vital Signs 01/29/25 14:21 02/28/25 14:52 Height 5 ft 9 in 5 ft 9 in Weight: 230 lb BMI 34.0 BP 126/60 H Blood Pressure Location Lt brachial Position Sitting Respiration 14 Pulse 88 Pulse Source Monitor Temp 97.1 F L Temp Source Temporal Pulse Oximetry (%) 97 Oxygen Delivery Method room air Intake Visit Reasons: GOUT ISSUES Chief Complaint: Bilateral foot pain Color Dipper Required: No Is patient in pain?: Yes (BLE) Pain scale (1-10): 2 Allergies doxycycline Allergy (Severe, Verified 02/28/25 14:42) swelling latex Allergy (Intermediate, Verified 02/28/25 14:42) rash Medications ???Medication ???Instructions ???Recorded ???Confirmed ???Type lisinopril 20 2 tab PO DAILY #180 tabs 04/18/24 02/28/25 Rx mg-hydrochlorothiazide 12.5 mg tablet doxazosin 4 mg tablet 4 mg PO BID 3 months #180 tabs 02/28/25 Rx allopurinol 100 mg tablet 100 mg PO QDAY #30 tabs 02/07/25 0 02/28/25 Rx amlodipine 10 mg tablet 10 mg PO QHS #90 tabs 02/23/2508/16 Rx Have you fallen in the past year?: No PFSH Medical History (Updated 02/28/25 @ 15:[address] Cate Sapp MD) Bilateral foot pain Loss of hearing Wears glasses Alcohol use History of steroid therapy Arthritis Gout High cholesterol Injury of head and neck History of ulceration Heartburn Non-smoker History of pain when walking History of edema History of stress test Elevated PSA BPH (benign prostatic hyperplasia) Bilateral primary osteoarthritis of knee ESTRELLA (acute kidney injury) benign growth on prostate History of squamous cell carcinoma History of basal cell carcinoma History of kidney stones Hypertension Arthritis Seasonal allergies Surgical History Hx of colonoscopy Hx of wisdom tooth extraction History of bilateral cataract extraction Hx of tonsillectomy Family History Father Hypertension Brother Hypertension CVA (cerebral vascular accident) Mother Hypertension CVA (cerebral vascular accident) Grandmother Cancer Social History Smoking Status: Never smoker alcohol intake: current alcohol intake frequency: a few times a month substance use type: does not use what type of physical activity do you participate in: walking frequency: daily HPI HPI Chief Complaint: Bilateral foot pain Details: ANTONI GOLDSMITH, is a 74 M who presents to the office today for an acute visit. He reports bilateral foot pain and questions if this is related to gout. Prior episodes of gout have been his right great toe. These presented with pain, swelling and redness. Current pain is in both feet. Typically at the ball of his feet and he heel. Worse after prolonged sitting/with initial movement. No numbness or tingling. Has been off anti-inflammatory due to upcoming surgery. ROS Const Constitutional: No body ache, chills, excessive sweating, fatigue, fever(s), frequent falls, headache(s), snoring, weakness, sleep problems or change in appetite Eyes Eyes: No blurry vision, change in vision, bulging eyes, floaters, visual disturbances, eye pain or Light sensitivity ENT ENT: No abnormal hearing, ear or mastoid pain, tinnitus, balance problems, nosebleed/epistaxis, nasal congestion, headache(s), neck pain or sore throat Resp Respiratory: No cough, excessive phlegm production, pain on inspiration, shortness of breath, snoring or wheezing Cardio Cardiology: No chest pain at rest, chest pain with exertion, excessive sweating, shortness of breath, dyspnea on exertion, lightheadedness, orthopnea or palpitations Gastro GI: No abdominal pain, change in bowel habits, constipation, cramping, diarrhea, nausea/dyspepsia or vomiting Genitourinary Male: No burning urination, painful urination, urinary incontinence or urinary frequency Musc Musculoskeletal: No abnormal gait, joint pain, back pain, limited range of motion, neck pain or numbness Skin Skin: Positive for skin pain; No dry skin, excessive hair growth, yellowing of the eye, lesions, itchy eyes, rash or wounds Neuro Neurology: No abnormal gait, abnormal hearing, behavioral changes, unsteady gait/balance, weakness, frequent falls, headache(s), memory loss, numbness or visual disturbances Psych Psychiatric: No anxiety, No behavioral changes, No change in appetite, No depression, No me (more content not included)... Normal [facility] Fructosamineon 02-24-2025 FRUCTOSAMINE 229 umol/L Normal 0-285 [facility] Comment on above: Result Comment: Publ ished reference interval for apparently healthy subjects between age 20 and 60 is 205 - 285 umol/L and in a poorly controlled diabetic population is 228 - 563 umol/L with a mean of 396 umol/L. Performed at: - [facility] [id number] Cryptologic Supervisor: Evan Rojo PhD, Phone: [phone] Performed By: #### L 825.7554, Q533.2765, L3158.7030, L501.7895, BTSPAT, M100.341 ####[facility] [id number] [place], [address] MRSA/SAID NASAL SCREENon MRSA+SAID SCRN Reason for Exam: Rachael mei MRSA MRSA Negative S. AUREUS S. aureus Negative Normal [facility] Comment on above: Performed By: #### L 300.3900, L300.4310, L3400.0100, L501.9985, BTSPAT, M100.651 ####[facility] [id number] [place] [place], [address] Orthopedic Visit Reporton Orthopedic Visit Report [facility] [address] [place] [address] [address] [place] [address] OFFICE VISIT Date of Service: 02/23/25 MR#: [id number] Acct: [id number] Name: ANTONI GOLDSMITH Rep #: [id number] : 1950 Provider: KASSI quiros Age/Sex: 74/M Location: [facility] Status: Signed Intake Vital Signs 01/29/25 14:21 Height 5 ft 9 in Intake Visit Reasons: RIGHT KNEE Chief Complaint: Iovera Right knee Allergies doxycycline Allergy (Severe, Verified 02/09/25 11:00) swelling latex Allergy (Intermediate, Verified 02/09/25 11:00) rash Medications ???Medication ???Instructions ???Recorded ???Confirmed ???Type lisinopril 20 2 tab PO DAILY #180 tabs 04/18/24 02/23/25 Rx mg-hydrochlorothiazide 12.5 mg tablet doxazosin 4 mg tablet 4 mg PO BID 3 months #180 tabs 02/23/25 Rx amlodipine 10 mg tablet 10 mg PO QHS 02/06/25 02/23/25 His tory allopurinol 100 mg tablet 100 mg PO QDAY #30 tabs 02/07/25 0 02/23/25 Rx colchicine 0.6 mg tablet 0.6 mg PO QDAY #3 tabs 02/07/25 Rx Have you fallen in the past year?: No [facility] History Loss of hearing Wears glasses Alcohol use History of steroid therapy Arthritis Gout High cholesterol Injury of head and neck History of ulceration Heartburn Non-smoker History of pain when walking History of edema History of stress test Elevated PSA BPH (benign prostatic hyperplasia) Bilateral primary osteoarthritis of knee ESTRELLA (acute kidney injury) benign growth on prostate History of squamous cell carcinoma History of basal cell carcinoma History of kidney stones Hypertension Arthritis Seasonal allergies Surgical History Hx of colonoscopy Hx of wisdom tooth extraction History of bilateral cataract extraction Hx of tonsillectomy Family History Father Hypertension Brother Hypertension CVA (cerebral vascular accident) Mother Hypertension CVA (cerebral vascular accident) Grandmother Cancer Social History Smoking Status: Never smoker alcohol intake: current alcohol intake frequency: a few times a month substance use type: does not use what type of physical activity do you participate in: walking frequency: daily HPI RIGHT KNEE Details: This documentation accurately reflects the service provided and the decisions made by me, Tenisha Altamirano ASSOCIATE PROFESSOR OF PHILOSOPHY-C 02/23/25 0990. Part of today???s visit was documented by Maame HULL, acting as scribe. ANTONI GOLDSMITH is a 74 year old M here today for right knee Iovera treatment. Agree with above. Patient presents for right knee iovera treatment with scheduled TKA with Dr. Watters in 2 weeks. Patient attempted this procedure 2 weeks ago, however he was having an acute gout flare with elevated uric acid. Patient did have his labs rechecked and uric acid is significantly down. Patient states his pain is well-controlled at this time. Wishes to pursue with iovera as planned. ROS Const All systems reviewed are unremarkable except as noted in H and other (A O x 3, no apparent distress. No recent illness.) ENT Denies dizziness Card Denies chest pain, Denies dyspnea, Denies edema and Reports other (No palpitations) Resp Denies cough, Denies dyspnea and Reports other (No recent URI) GI Reports system reviewed and no additional complaints, except as documented, Denies nausea and Denies vomiting Musc Reports arthralgias and Reports stiffness Neuro No dizziness Psych Reports system reviewed and no additional complaints, except as documented Cj/Lymph Denies easy bleeding and Denies easy bruising Ortho Exam General General: Yes no acute distress and Yes well groomed Neurologic: Yes alert and Yes oriented x3 Psychologic: Yes reasonable and appropriate Right Knee Skin/Wound: Yes CDI, No erythema, No ecchymosis and No swelling Knee ROM: Yes ROM-Extension -20 to 0 and Yes ROM-Flexion 0-140 (112) Examination: No Med jt line tenderness, No Lat jt line tenderness, Yes Pain with flexion and No Pain with extention KNEE: Skin is pink, warm, dry and intact. There is no redness or heat over the joint. Office Procedures Iovera Procedure Details:: Preoperative diagnosis :chronic right knee pain Postoperative diagnosis: Same Procedure: Cryotherapy with Iovera device to anterior femoral cutaneous nerve and 2 branches of the infrapatellar saphenous nerve. Three nerves in total. Description of procedure: Patient was brought back to the procedure room the operative extremity (R) was identified by both patient and ASSOCIATE PROFESSOR OF PHILOSOPHY. Entire extremity was cleaned with alcohol. The superior inferi (more content not included)... Normal [facility] Activated partial thrombopla stin time (aPTT) in platelet poor plasma by coagulation aOrdered By: Loyd Watters on 02-22-2025 aPTT Coag (PPP) [Time] 31.2 s 24.1-36.2 [facility] FructosamineOrdered By: Tahir Watters on 02-22-2025 Fructosamine 229 umol/L 0-285 [facility] Comment on above: Published reference interval for apparently healthysubjects between age 20 and 60 is 205 - 285 umol/L and in apoorly controlled diabetic population is 228 - 563 umol/Lwith a mean of 396 umol/L.Performed at: - [facility] [id number] Director: Evan Rojo PhD, Phone: [phone] Hemoglobin A1con 02-22-2025 HbA1c (Bld) [Mass fraction] 6.0 % Normal <=5.6 [facility] Comment on above: Performed By: #### L 300.3900, L300.4310, L3400.0100, L501.9985, BTSPAT, M100.651 ####[facility] [address] [place], [place], [id number] Hemoglobin A1c percentageOrd ered By: Loyd Watters on 02-22-2025 HbA1c (Bld) [Mass fraction] 6.0 % >5.7 [facility] International normalized rat io (INR) calculationOrdered By: Loyd Watters on 02-22-2025 INR Coag (Bld) [Relative time] 1.1 {INR} [facility] MRSA screenOrdered By: Roosevelt Watters on 02-22-2025 MRSA DNA JOSE+probe Ql (Unsp spec) [facility] Nasal Screen MRSA/MSSA [facility] Magnesiumon 02-22-2025 Magnesium [Mass/Vol] 2.0 mg/dL Normal 1.5-2.2 [facility] Comment on above: Performed By: #### L 501.5200 #### [facility] Laboratory [address] [place], [address] Magnesium (Unsp spec) [Mass/ Vol]Ordered By: Quinton Baig on 02-22-2025 Magnesium [Mass/Vol] 2.0 mg/dL 1.5-2.2 [facility] Magnesium measurement (mass/ volume)Ordered By: Quinton Baig on 02-22-2025 Magnesium (Unsp spec) [Mass/Vol] 2.0 mg/dL 1.5-2.2 [facility] Partial Thromboplast Timeon 02-22-2025 aPTT Coag (Bld) [Time] 31.2 s Normal 24.1-36.2 [facility] Comment on above: Performed By: #### L 300.3900, L300.4310, L3400.0100, L501.9985, BTSPAT, M100.651 ####[facility] [address] [place], [address] Prothrombin Time w/INRon INR Coag (PPP) [Relative time] 1.1 {INR} Normal [facility] Comment on above: Performed By: #### L 300.3900, L300.4310, L3400.0100, L501.9985, BTSPAT, M100.651 ####[facility] [address] [place], [address] PT Coag (PPP) [Time] 14.3 s Normal 11.7-14.9 [facility] Comment on above: Performed By: #### L 300.3900, L300.4310, L3400.0100, L501.9985, BTSPAT, M100.651 ####[facility] [address] [place], [address] Prothrombin timeOrdered By: Loyd Watters on 02-22-2025 PT Coag (PPP) [Time] 14.3 s 11.7-14.9 [facility] Serum or plasma uric acid me asurement (mass/volume)Ordered By: Tenisha Altamirano on 02-22-2025 Urate [Mass/Vol] 7.9 mg/dL High 3.5-7.2 [facility] Comment on above: The drugs N-Acetylcy steine and Metamizole may falsely depress this assay. Type AND Screen - PAT ONLYon 02-22-2025 Ab SCREEN GEL Negative Normal [facility] Comment on above: Order Comment: Surge ry Date: 02/20/25Re for Laboratory Test [id number] Performed By: #### L 300.3900, L300.4310, L3400.0100, L501.9985, BTSPAT, M100.651 ####[facility] [address] [place], [address] ABO and Rh group Nom (Bld) Blood group O Rh(D) positive Normal [facility] Comment on above: Order Comment: Surge ry Date: 02/20/25Re for Laboratory Test [id number] Performed By: #### L 300.3900, L300.4310, L3400.0100, L501.9985, BTSPAT, M100.651 ####[facility] [address] [place], [place], [id number] Uric Acidon 02-22-2025 URIC 7.9 mg/dL High 3.5-7.2 [facility] Comment on above: Result Comment: The drugs N-Acetylcysteine and Metamizole may falsely depress this assay. Performed By: #### L 501.1400 #### [facility] [address] [place], [place], [address] aPTT Coag (PPP) [Time]Ordere d By: Loyd Watters on 02-22-2025 aPTT Coag (Bld) [Time] 31.2 s 24.1-36.2 [facility] Orthopedic Visit Reporton Orthopedic Visit Report [facility] [address] [place] [address] [address] [place] [address] OFFICE VISIT Date of Service: 02/09/25 MR#: [id number] Acct: [id number] Name: ANTONI GOLDSMITH Rep #: [id number] : 1950 Provider: KASSI quiros Age/Sex: 74/M Location: [facility] [place] Status: Signed Intake Vital Signs 12/04/24 14:37 01/29/25 14:21 Height 5 ft 9 in 5 ft 9 in Intake Visit Reasons: right knee Chief Complaint: Iovera Right knee Is patient in pain?: No Allergies doxycycline Allergy (Severe, Verified 02/09/25 11:00) swelling latex Allergy (Intermediate, Verified 02/09/25 11:00) rash Medications ???Medication ???Instructions ???Recorded ???Confirmed ???Type lisinopril 20 2 tab PO DAILY #180 tabs 04/18/24 02/09/25 Rx mg-hydrochlorothiazide 12.5 mg tablet doxazosin 4 mg tablet 4 mg PO BID 3 months #180 tabs 02/09/25 Rx amlodipine 10 mg tablet 10 mg PO QHS 02/06/25 02/09/25 His tory allopurinol 100 mg tablet 100 mg PO QDAY #30 tabs 02/07/25 0 02/09/25 Rx colchicine 0.6 mg tablet 0.6 mg PO QDAY #3 tabs 02/07/25 Rx Have you fallen in the past year?: No PFSH Medical History Loss of hearing Wears glasses Alcohol use History of steroid therapy Arthritis Gout High cholesterol Injury of head and neck History of ulceration Heartburn Non-smoker History of pain when walking History of edema History of stress test Elevated PSA BPH (benign prostatic hyperplasia) Bilateral primary osteoarthritis of knee ESTRELLA (acute kidney injury) benign growth on prostate History of squamous cell carcinoma History of basal cell carcinoma History of kidney stones Hypertension Arthritis Seasonal allergies Surgical History Hx of colonoscopy Hx of wisdom tooth extraction History of bilateral cataract extraction Hx of tonsillectomy Family History Father Hypertension Brother Hypertension CVA (cerebral vascular accident) Mother Hypertension CVA (cerebral vascular accident) Grandmother Cancer Social History Smoking Status: Never smoker alcohol intake: current alcohol intake frequency: a few times a month substance use type: does not use what type of physical activity do you participate in: walking frequency: daily HPI right knee Details: This documentation accurately reflects the service provided and the decisions made by me, Tenisha Altamirano, ASSOCIATE PROFESSOR OF PHILOSOPHYRobertoC 02/09/25 1057. Part of today???s visit was documented by Jazmin Keyes RN, acting as scribe. ANTONI GOLDSMITH is a 74 year old M here today for right knee Iovera. Agree with above, Antoni is a pleasant 74-year-old gentleman presenting today with his for right knee iovera treatment with anticipated TKA for 02/20/2025. Patient did see his PCP on 01/29/2025 and ordered outpatient labs. Was identified patient has an acute gout flare of the right knee and was started on colchicine yesterday as well as daily allopurinol. Symptoms are somewhat improved. ROS Const All systems reviewed are unremarkable except as noted in H and other (A O x 3, no apparent distress. No recent illness.) ENT Denies dizziness Card Denies chest pain, Denies dyspnea, Denies edema and Reports other (No palpitations) Resp Denies cough, Denies dyspnea and Reports other (No recent URI) GI Reports system reviewed and no additional complaints, except as documented, Denies nausea and Denies vomiting Musc Reports arthralgias, Reports joint swelling and Reports stiffness Neuro No dizziness Psych Reports system reviewed and no additional complaints, except as documented Cj/Lymph Denies easy bleeding and Denies easy bruising Ortho Exam General General: Yes no acute distress and Yes well groomed Neurologic: Yes alert and Yes oriented x3 Psychologic: Yes reasonable and appropriate Right Knee Skin/Wound: Yes CDI, No erythema, No ecchymosis and No swelling Knee ROM: Yes ROM-Extension -20 to 0 and Yes ROM-Flexion 0-140 (112) Examination: No Med jt line tenderness, No Lat jt line tenderness, Yes Pain with flexion and No Pain with extention KNEE: Knee with mild edema and warm sensation to touch. There is no obvious redness present. Supplemental Info Reviewed most recent PCP note from 01/29/2025 and lab results. Noted uric acid level of 9 from 01/29/2025. Reviewed updates with Dr. Watters prior to initiating today's scheduled treatment. Coding Level of Care Code No Charge Diagnoses Primary osteoarthritis of right knee M17.11 Osteoarthritis type: primary Acute pain of right knee M25.561 Chronicity: acute Gout M10.9 Gout site: (more content not included)... Normal [facility] MR/PAT.JOVANNYon 02-06-2025 MR/PAT.[facility] Medical Records Department [address] [place] [address] PAT - Anesthesia 02/06/25 1541 MR#: [id number] Acct: [id number] Name: ANTONI GOLDSMITH Rep #: [id number] : 1950 74 From: Quinton Baig MD PCP: Dr. 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 When Was Last Pacemaker Check QUESTION #4 FULL TEXT: You/Your Family Experience fever (hyperthermia) with Anesthesia Last Oral Intake Last Oral intake: Last Oral Intake NPO since Meds taken in AM with sips of water? Meds patient instructed to take am of surgery PONV PONV - customer service attendant: PONV - customer service attendant Female No 02/06/25 15:11 HX of Motion Sickness No 02/06/25 15:11 HX of N/V After Surgery No 02/06/25 15:11 Non-Smoker Yes 02/06/25 15:11 Duration of Surgery greater Yes 02/06/25 15:11 than 60 minutes Number of Risk Factors 2 02/06/25 15:11 PONV Score Moderate Risk 02/06/25 15:11 Height Weight Height Weight: Anesthesia: Height Weight Height 5 ft 9 in 12/04/24 14:37 Respiratory Assessment Respiratory Assessment - customer service attendant: Respiratory Tract Infection Hx - customer service attendant Hx Respiratory Tract Infection No 02/06/25 15:11 STOP Sleep Apnea STOP Sleep Apnea - customer service attendant: STOP Sleep Apnea - customer service attendant Hx Hypertension Yes: CONTROLLED WITH MED 02/06/25 15:11 Hx Sleep Apnea No 02/06/25 15:11 CPAP BIPAP Do you snore loudly (louder Yes 02/06/25 15:11 than talking or can be heard Do you often feel tired/ No 02/06/25 15:11 fatigued/ sleepy during daytime? Has anyone observed you stop No 02/06/25 15:11 breathing during sleep? STOP Results Positive 02/06/25 15:11 QUESTION #5 FULL TEXT : Do you snore loudly (louder than talking or can be heard through closed doors)? 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 Specify any problems Hx of Preganancy in last 3 N/A 02/06/25 15:11 Months Nurse Filling Out Transfusion DSCHRIBER 02/06/25 15:11 Questions: Date: 02/06/25 02/06/25 15:11 Time: 15:14 02/06/25 15:11 Patient unable to answer at this time (ie. confused, unrespo /Reproduction History /Reproductive History - customer service attendant: /Reproductive Hx- customer service attendant Hx Now No 02/06/25 15:11 Gestational Age (in weeks): EDC: Hx Hx Para Hx Section SAB No 02/06/25 15:11 [facility] Medical History (Updated 02/06/25 @ 15:25 by Diana Bailey) Loss of hearing Wears glasses Alcohol use History of steroid therapy Arthritis Gout High cholesterol Injury of head and neck History of ulceration Heartburn Non-smoker History of pain when walking History of edema History of stress test Elevated PSA BPH (benign prostatic hyperplasia) Bilateral primary osteoarthritis of knee ESTRELLA (acute kidney injury) benign growth on prostate History of squamous cell carcinoma History of basal cell carcinoma History of kidney stones Hypertension Arthritis Seasonal allergies Home Medications ???Medication ???Instructions ???Recorded ???Last Taken ???Type aspirin 81 mg tablet,delayed 81 mg PO DAILY 02/21/19 02/02/25 H istory release cetirizine 10 mg tablet (Zyrtec) 5 mg PO DAILY PRN allergy symptoms 02/21/19 Unknown History multivitamin 1 cap PO DAILY 02/21/19 Unknown Hi story biotin 1 mg caps (more content not included)... Normal [facility] Extremity Lower without Cont raon 02-05-2025 Extremity Lower without Contra [facility] [address] [place] [address] Extremity Lower without Contra MR#: [id number] Acct: [id number] Name: ANTONI GOLDSMITH Rep #: [id number] : 1950 M 74 From: [facility] MD PCP: Dr. Cate Sapp MD Status: REG CLI Study: Extremity Lower without Contra Date of Exam: 0 02/05/25 Exam# [id number] Ordering Dr: oLyd Watters DO PROCEDURE: EXTREMITY LOWER WITHOUT CONTRA 02/05/2025 REASON FOR EXAM: TEMPLATING FOR RIGHT TKA TECHNIQUE: Axial extremity without intravenous contrast. Coronal and Sagittal reconstruction series were provided. CONTRAST: No contrast. One or more dose reduction techniques were used (e.g., Automated exposure control, adjustment of the mA and/or kV according to patient size, use of iterative reconstruction technique). RADIATION DOSE SUMMARY: CTDlvol: 14 mGy DLP: 1378.57 mGycm COMPARISON: None. FINDINGS: Bones: No evidence of fracture. Joints: Imaging of the right hip joint was obtained. Mild joint space narrowing. Imaging of the right knee was obtained. Marked degree of joint space narrowing with degenerative spurring of the medial femoral condyle and medial tibial plateau with sub cortical cystic changes. Moderate degree of joint space narrowing of the patellofemoral joint with degenerative changes. Soft Tissues: Minimal joint effusion. CT/Extremity Lower without Contra IMPRESSION: Marked degree of joint space narrowing and osteoarthritis of the medial knee joint with subchondral cystic changes and degenerative spur formation. Reading Location: [place] [address] CC: Dr. Cate Sapp MD; Dr. 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 Normal [facility] Absolute lymphocyte countOrd ered By: Cate Sapp on 01-29-2025 Lymphocytes Auto (Unsp spec) [#/Vol] 1.93 10*3/uL 0.83-4.51 [facility] Absolute neutrophil countOrd ered By: Cate Sapp on 01-29-2025 Neutrophils (Bld) [#/Vol] 5.2 10*3/uL 2.0-7.7 [facility] Anion gap in Serum or Plasma Ordered By: Cate Sapp on 01-29-2025 Anion gap [Moles/Vol] 14 mmol/L 5-15 [facility] Automated lymphocyte count a s percentage of total leukocytesOrdered By: Mavisdejonshobhacornelia Sapp on 01-29-2025 Lymphocytes/100 WBC Auto (Unsp spec) 22.9 % - [facility] BUN/creatinine ratioOrdered By: Mavisdejonshobhacornelia Naidulaurauday on 01-29-2025 Urea nitrogen/Creatinine [Mass ratio] 15.3 mg/mg 10- [facility] Basophil percentageOrdered B y: Mavisdejonshobhacornelia Naidulaurauday on 01-29-2025 Basophils/100 WBC (Bld) 0.4 % 0-1 [facility] Bilirubin, totalOrdered By: Mavisalissa Sapp on 01-29-2025 Bilirubin [Mass/Vol] 0.29 mg/dL 0.00-1.30 [facility] CBC W/Diff, Automatedon 01-20 Absolute Lymph 1.93 X10 3/uL Normal 0.83-4.51 [facility] Comment on above: Performed By: #### L 501.1400, L500.4050, L100.0100 #### [facility] [address] [place], [address] Absolute Neut 5.2 X10 3/uL Normal 2.0-7.7 [facility] Comment on above: Performed By: #### L 501.1400, L500.4050, L100.0100 #### [facility] [address] [place], [address] Basophils/100 WBC (Bld) 0.4 % Normal 0-1 [facility] Comment on above: Performed By: #### L 501.1400, L500.4050, L100.0100 #### [facility] [address] [place], [address] Eosinophils/100 WBC (Bld) 1.7 % Normal 0-5 [facility] Comment on above: Performed By: #### L 501.1400, L500.4050, L100.0100 #### [facility] [address] [place], [address] Erythrocyte distribution width (RBC) [Ratio] 13.2 % Normal 11.6-14.6 [facility] Comment on above: Performed By: #### L 501.1400, L500.4050, L100.0100 #### [facility] [address] [place], [address] Hematocrit (Bld) [Volume fraction] 39.3 % Low 40-54 [facility] Comment on above: Performed By: #### L 501.1400, L500.4050, L100.0100 #### [facility] [address], [address] Hemoglobin (Bld) [Mass/Vol] 13.1 g/dL Normal 13.0-16.5 [facility] Comment on above: Performed By: #### L 501.1400, L500.4050, L100.0100 #### [facility] [address] [place], [address] IG% 0.900 Normal 0.0-0.9 [facility] Comment on above: Result Comment: IG% - Immature Granulocytes (promyelocytes, myelocytes and metamyelocytes) > 1% indicates that a LEFT SHIFT is Present. Performed By: #### L 501.1400, L500.4050, L100.0100 #### [facility] [address] [place], [address] Lymphocytes/100 WBC (Bld) 22.9 % Normal 19-41 [facility] Comment on above: Performed By: #### L 501.1400, L500.4050, L100.0100 #### [facility] [address] [place], [address] MCH (RBC) [Entitic mass] 30.0 pg Normal 27.0-32.0 [facility] Comment on above: Performed By: #### L 501.1400, L500.4050, L100.0100 #### [facility] [address] [place], [address] MCHC (RBC) [Mass/Vol] 33.3 g/dL Normal 32-36 [facility] Comment on above: Performed By: #### L 501.1400, L500.4050, L100.0100 #### [facility] [address] [place], [address] MCV (RBC) [Entitic vol] 89.9 fL Normal 80-94 [facility] Comment on above: Performed By: #### L 501.1400, L500.4050, L100.0100 #### [facility] [address] [place], [address] Monocytes/100 WBC (Bld) 12.4 % High 0-10 [facility] Comment on above: Performed By: #### L 501.1400, L500.4050, L100.0100 #### [facility] [address] [place], [address] Neutrophils/100 WBC (Bld) 61.7 % Normal 47-70 [facility] Comment on above: Performed By: #### L 501.1400, L500.4050, L100.0100 #### [facility] [address] [place], [address] Nucleated RBC (Bld) [#/Vol] 0 10*3/uL Normal 0-5 [facility] Comment on above: Performed By: #### L 501.1400, L500.4050, L100.0100 #### [facility] [facility] [address] [place], [address] Platelet mean volume (Bld) [Entitic vol] 11.0 fL Normal 6.2-12.0 [facility] Comment on above: Performed By: #### L 501.1400, L500.4050, L100.0100 #### [facility] [address] [place], [address] Platelets (Bld) [#/Vol] 477 10*3/uL High 150-450 [facility] Comment on above: Performed By: #### L 501.1400, L500.4050, L100.0100 #### [facility] [address] [place], [address] RBC (Bld) [#/Vol] 4.37 10*6/uL Low 4.6-6.2 [facility] Comment on above: Performed By: #### L 501.1400, L500.4050, L100.0100 #### [facility] [address] [place], [address] RDW SD 43.9 fl Normal 35.1-43.9 [facility] Comment on above: Performed By: #### L 501.1400, L500.4050, L100.0100 #### [facility] [address] [place], [address] WBC (Bld) [#/Vol] 8.4 10*3/uL Normal 4.4-11.0 [facility] Comment on above: Performed By: #### L 501.1400, L500.4050, L100.0100 #### [facility] [address] [place], [address] Carbon dioxide, total [Moles /volume] in Central venous bloodOrdered By: Cate Sapp on 01-29-2025 CO2 [Moles/Vol] 21.2 mmol/L 21.0-32.0 [facility] Chloride assayOrdered By: Mavis Sapp on 01-29-2025 Chloride [Moles/Vol] 103 mmol/L 98-108 [facility] Comprehensive Metabolic Prof ilon 01-29-2025 Albumin [Mass/Vol] 4.0 g/dL Normal 3.4-4.8 [facility] Comment on above: Performed By: #### L 501.1400, L500.4050, L100.0100 #### [facility] [address] [place], [address] Albumin/Globulin [Mass ratio] 1.2 {ratio} Normal 0.9-2.4 [facility] Comment on above: Performed By: #### L 501.1400, L500.4050, L100.0100 #### [facility] [address] [place], [address] ALK PHOS 54 U/L Normal 40-129 [facility] Comment on above: Performed By: #### L 501.1400, L500.4050, L100.0100 #### [facility] [address] [place], [address] ALT [Catalytic activity/Vol] 39 U/L Normal <=46 [facility] Comment on above: Performed By: #### L 501.1400, L500.4050, L100.0100 #### [facility] [address] [place], [address] AST [Catalytic activity/Vol] 29 U/L Normal <=37 [facility] Comment on above: Performed By: #### L 501.1400, L500.4050, L100.0100 #### [facility] [address] [place], [address] Bilirubin [Mass/Vol] 0.29 mg/dL Normal 0.00-1.30 [facility] Comment on above: Performed By: #### L 501.1400, L500.4050, L100.0100 #### [facility] [address] [place], [address] BUN/CRE 15.3 RATIO Normal 10-20 [facility] Comment on above: Performed By: #### L 501.1400, L500.4050, L100.0100 #### [facility] [address] [place], [address] Calcium [Mass/Vol] 9.5 mg/dL Normal 7.6-11.0 [facility] Comment on above: Performed By: #### L 501.1400, L500.4050, L100.0100 #### [facility] [address] [place], [address] Chloride [Moles/Vol] 103 mmol/L Normal 98-108 [facility] Comment on above: Performed By: #### L 501.1400, L500.4050, L100.0100 #### [facility] [address] [place], [address] CO2 [Moles/Vol] 21.2 mmol/L Normal 21.0-32.0 [facility] Comment on above: Performed By: #### L 501.1400, L500.4050, L100.0100 #### [facility] [address] [place], [address] Creatinine [Mass/Vol] 1.10 mg/dL Normal 0.70-1.20 [facility] Comment on above: Performed By: #### L 501.1400, L500.4050, L100.0100 #### [facility] [address] [place], [address] GAP 14 Normal 5-15 [facility] Comment on above: Performed By: #### L 501.1400, L500.4050, L100.0100 #### [facility] [address] [place], [address] GFR/1.73 sq M.predicted among non-blacks MDRD (S/P/Bld) [Vol rate/Area] 71 mL/min/{1.73_m2} Normal >60 [facility] Comment on above: Result Comment: mL/m in/1.73m2 CKD-EPI Creatinine Equation (2020) Performed By: #### L 501.1400, L500.4050, L100.0100 #### [facility] [address] [place], [address] Globulin (S) [Mass/Vol] 3.3 g/dL Normal 2.2-4.2 [facility] Comment on above: Performed By: #### L 501.1400, L500.4050, L100.0100 #### [facility] [address] [place], [address] Glucose [Mass/Vol] 103 mg/dL High 70-99 [facility] Comment on above: Performed By: #### L 501.1400, L500.4050, L100.0100 #### [facility] [address] [place], [address] Potassium [Moles/Vol] 4.1 mmol/L Normal 3.3-5.1 [facility] Comment on above: Performed By: #### L 501.1400, L500.4050, L100.0100 #### [facility] [address] [place], [address] Sodium [Moles/Vol] 138 mmol/L Normal 133-145 [facility] Comment on above: Performed By: #### L 501.1400, L500.4050, L100.0100 #### [facility] [address] [place], [address] T PROT 7.3 g/dL Normal 5.9-8.4 [facility] Comment on above: Performed By: #### L 501.1400, L500.4050, L100.0100 #### [facility] [address] [place], [address] Urea nitrogen [Mass/Vol] 17 mg/dL Normal 4-19 [facility] Comment on above: Performed By: #### L 501.1400, L500.4050, L100.0100 #### [facility] [address] [place], [address] Eosinophil percentageOrdered By: Cate Sapp on 01-29-2025 Eosinophils/100 WBC (Bld) 1.7 % 0-5 [facility] Erythrocyte distribution wid th ratioOrdered By: alissa Sapp on 01-29-2025 Erythrocyte distribution width (RBC) [Ratio] 13.2 % 11.6-14.6 [facility] Erythrocyte distribution wid th standard deviationOrdered By: Cate Sapp on 01-29-2025 Erythrocyte distribution width (RBC) [Entitic vol] 43.9 fL 35.1-43.9 [facility] Erythrocyte distribution width (RBC) [Ratio] 43.9 fl 35.1-43.9 [facility] GFR/1.73 sq M.predicted katherine g non-blacks MDRD (S/P/Bld) [Vol rate/Area]Ordered By: Cate Sapp on 01-29-2025 Estimated GFR (MDRD) Non-Af Amer 71 >60 [facility] Comment on above: mL/min/1.73m2 CKD-EP I Creatinine Equation (2020) Glomerular filtration rate ( GFR) estimation/1.73 sq m using serum, plasma, or whole bOrdered By: Cate Sapp on 01-29-2025 GFR/1.73 sq M.predicted among non-blacks MDRD (S/P/Bld) [Vol rate/Area] 71 mL/min/{1.73_m2} >60 [facility] Comment on above: mL/min/1.73m2 CKD-EP I Creatinine Equation (2020) Hematocrit Auto (Bld) [Volum e fraction]Ordered By: Cate Sapp on 01-29-2025 Hematocrit (Bld) [Volume fraction] 39.3 % Low 40-54 [facility] Hemoglobin measurementOrdere d By: Cate Sapp on 01-29-2025 Hemoglobin (Bld) [Mass/Vol] 13.1 g/dL 13.0-16.5 [facility] Immature granulocytes/100 WB C Auto (Bld)Ordered By: Cate Sapp on 01-29-2025 Immature granulocytes/100 WBC (Bld) 0.900 % 0.0-0.9 [facility] Comment on above: IG% - Immature Granu locytes (promyelocytes, myelocytes and metamyelocytes) > 1% indicates that a LEFT SHIFT is Present. Internal Medicine Office Vis iton 01-29-2025 Internal Medicine Office Visit [facility] [address] [place], [place] [address] OFFICE VISIT Date of Service: 01/29/25 MR#: [id number] Acct: [id number] Name: ANTONI GOLDSMITH Rep #: [id number] : 1950 Provider: Dr. Cate dan MD Age/Sex: 74/M Location: [facility] [place] Status: Signed Intake Vital Signs 12/04/24 14:37 01/29/25 14:21 Height 5 ft 9 in 5 ft 9 in Weight: 236 lb BMI 34.8 BP 122/74 H Blood Pressure Location Lt brachial Position Sitting Respiration 16 Pulse 68 Pulse Source Monitor Temp 98.4 F Temp Source Temporal Pulse Oximetry (%) 98 Oxygen Delivery Method room air Intake Visit Reasons: SURG CLEARANCE-[facility] Chief Complaint: Presurgical evaluation Color Dipper Required: No Accompanied by: Is patient in pain?: Yes (R knee) Pain scale (1-10): 2 Allergies doxycycline Allergy (Severe, Verified 01/29/25 14:20) swelling latex Allergy (Intermediate, Verified 01/29/25 14:20) rash Medications ???Medication ???Instructions ???Recorded ???Confirmed ???Type aspirin 81 mg tablet,delayed 81 mg PO DAILY 02/21/19 01/29/25 H istory release cetirizine 10 mg tablet (Zyrtec) 5 mg PO DAILY PRN 02/21/19 5 History glucosamine HCl 1,500 mg tablet 1,500 mg PO DAILY 02/21/19 5 History multivitamin 1 cap PO DAILY 02/21/19 01/29/25 H istory biotin 1 mg capsule 1 mg PO DAILY 06/29/22 01/29/25 Hi story glucosamine-chondroitin 250 mg-200 2 tab PO BID 06/29/22 01/29/25 H istory mg tablet (Osteo Bi-Flex) lisinopril 20 2 tab PO DAILY #180 tabs 04/18/24 01/29/25 Rx mg-hydrochlorothiazide 12.5 mg tablet doxazosin 4 mg tablet 4 mg PO BID 3 months #180 tabs 01/29/25 Rx amlodipine 10 mg tablet 10 mg PO DAILY #90 tabs 10/03/24 0 01/29/25 Rx indomethacin 50 mg capsule 50 mg PO TID PRN Joint pain #90 01/29/25 Rx caps Have you fallen in the past year?: No Nurse's Note: Pt is here for surgical clearance for R total knee, states that it is scheduled for 4.25 Had preop w/ Dr. Watters on 01/24/25. Medications dc'd at that time. No preop testing ordered by him. [facility] Medical History (Updated 01/29/25 @ 14:[address] Cate Sapp MD) Preoperative evaluation to rule out surgical contraindication Elevated PSA BPH (benign prostatic hyperplasia) Abnormal EKG Flu vaccine need Osteoarthritis Bilateral primary osteoarthritis of knee Health care maintenance ESTRELLA (acute kidney injury) Hearing loss in right ear benign growth on prostate History of squamous cell carcinoma History of basal cell carcinoma History of kidney stones Hypertension History of pneumonia Gout Arthritis Seasonal allergies Surgical History History of bilateral cataract extraction Hx of tonsillectomy Family History Father Hypertension Brother Hypertension CVA (cerebral vascular accident) Mother Hypertension CVA (cerebral vascular accident) Grandmother Cancer Social History Smoking Status: Never smoker alcohol intake: current alcohol intake frequency: a few times a month substance use type: does not use what type of physical activity do you participate in: walking frequency: daily HPI HPI Chief Complaint: Presurgical evaluation Details: ANTONI GOLDSMITH, is a 74 M who presents to the office today for an acute visit to discuss presurgical evaluation. Chronic history of osteoarthritis which has been worsening lately. He is scheduled for a right total knee arthroplasty on the 20 of February. Has had surgeries in the past without any concerns. No chest pain, palpitation or shortness of breath. Able to carry out his activities without any significant limitation save for his knee pain. History of hypertension, blood pressure today at 122/74 mmHg. Chronic history of gout, recently asked for refill on indomethacin which he states that he has had for many years and is found helpful for his gout episodes. Has had a few more episodes lately. He reports dietary compliance and adequate fluid intake. ROS Const Constitutional: No body ache, chills, excessive sweating, fatigue, fever(s), frequent falls, headache(s), snoring, weakness, sleep problems or change in appetite Eyes Eyes: No blurry vision, change in vision, bulging eyes, floaters, visual disturbances, eye pain or Light sensitivity ENT ENT: No abnormal hearing, ear or mastoid pain, tinnitus, balance problems, nosebleed/epistaxis, nasal congestion, headache(s), neck pain or sore throat Resp Respiratory: No cough, excessive phlegm production, pain on inspiration, shortness of breath, snoring or wheezing Card (more content not included)... Normal [facility] - Chemistry and C hemistry - challengeOrdered By: Cate Sapp on 01-29-2025 AST [Catalytic activity/Vol] 29 U/L <38 [facility] Lymphocytes Auto (Unsp spec) [#/Vol]Ordered By: Cate Sapp on 01-29-2025 Lymphocytes (Bld) [#/Vol] 1.93 10*3/uL 0.83-4.51 [facility] Lymphocytes/100 WBC Auto (Un sp spec)Ordered By: Cate Sapp on 01-29-2025 Lymphocytes/100 WBC (Bld) 22.9 % 19-41 [facility] MCV (mean corpuscular volume ) determinationOrdered By: Cate Sapp on 01-29-2025 MCV (RBC) [Entitic vol] 89.9 fL 80-94 [facility] Mean corpuscular hemoglobin (MCH) determinationOrdered By: Cate Sapp on 01-29-2025 MCH (RBC) [Entitic mass] 30.0 pg 27.0-32.0 [facility] Mean corpuscular hemoglobin concentration (MCHC) determinationOrdered By: Cate Sapp on 01-29-2025 MCHC (RBC) [Mass/Vol] 33.3 g/dL 32-36 [facility] Mean platelet volume determi nationOrdered By: Cate Sapp on 01-29-2025 Platelet mean volume (Bld) [Entitic vol] 11.0 fL 6.2-12.0 [facility] Monocyte percentageOrdered B y: Cate Sapp on 01-29-2025 Monocytes/100 WBC (Bld) 12.4 % High 0-10 [facility] Neutrophil percentageOrdered By: Cate Sapp on 01-29-2025 Neutrophils/100 WBC (Bld) 61.7 % 47-70 [facility] Nucleated red blood cell per centageOrdered By: Cate Sapp on 01-29-2025 Nucleated RBC/100 WBC (Bld) [Ratio] 0 % 0-5 [facility] Platelet countOrdered By: Mavis Sapp on 01-29-2025 Platelets (Bld) [#/Vol] 477 10*3/uL High 150-450 [facility] Potassium (Unsp spec) [Mass/ Vol]Ordered By: Cate Sapp on 01-29-2025 Potassium [Moles/Vol] 4.1 mmol/L 3.3-5.1 [facility] Potassium measurement (mass/ volume)Ordered By: Cate Sapp on 01-29-2025 Potassium (Unsp spec) [Mass/Vol] 4.1 mmol/L 3.3-5.1 [facility] RBC Auto (Bld) [#/Vol]Ordere d By: Cate Sapp on 01-29-2025 RBC (Bld) [#/Vol] 4.37 10*6/uL Low 4.6-6.2 [facility] Serum creatinine measurement (mass/volume)Ordered By: Cate Sapp on 01-29-2025 Creatinine [Mass/Vol] 1.10 mg/dL 0.70-1.20 [facility] Serum globulin measurementOr dered By: Cate Sapp on 01-29-2025 Globulin (S) [Mass/Vol] 3.3 g/dL 2.2-4.2 [facility] Serum glucose measurement (m ass/volume)Ordered By: Cate Sapp on 01-29-2025 Glucose [Mass/Vol] 103 mg/dL High 70-99 [facility] Serum or plasma alanine jensen otransferase (ALT) measurementOrdered By: Cate Sapp on 01-29-2025 ALT [Catalytic activity/Vol] 39 U/L <47 [facility] Serum or plasma albumin shanika urement (mass/volume)Ordered By: Cate Sapp on 01-29-2025 Albumin [Mass/Vol] 4.0 g/dL 3.4-4.8 [facility] Serum or plasma albumin/glob ulin mass ratioOrdered By: Cate Sapp on 01-29-2025 Albumin/Globulin [Mass ratio] 1.2 {ratio} 0.9-2.4 [facility] Serum or plasma alkaline katty sphatase measurementOrdered By: Cate Sapp on 01-29-2025 ALP [Catalytic activity/Vol] 54 U/L 40-129 [facility] Serum or plasma calcium shanika urement (mass/volume)Ordered By: Cate Sapp on 01-29-2025 Calcium [Mass/Vol] 9.5 mg/dL 7.6-11.0 [facility] Serum or plasma urea nitroge n measurement (mass/volume)Ordered By: Cate Sapp on 01-29-2025 Urea nitrogen [Mass/Vol] 17 mg/dL 4-19 [facility] Serum or plasma uric acid me asurement (mass/volume)Ordered By: Cate Sapp on 01-29-2025 Urate [Mass/Vol] 9.0 mg/dL High 3.5-7.2 [facility] Comment on above: The drugs N-Acetylcy steine and Metamizole may falsely depress this assay. Sodium levelOrdered By: Bryan eucedaganga Senait on 01-29-2025 Sodium [Moles/Vol] 138 mmol/L 133-145 [facility] Total proteinOrdered By: Trevor Naidughe on 01-29-2025 Protein [Mass/Vol] 7.3 g/dL 5.9-8.4 [facility] Uric Acidon 01-29-2025 URIC 9.0 mg/dL High 3.5-7.2 [facility] Comment on above: Result Comment: The drugs N-Acetylcysteine and Metamizole may falsely depress this assay. Performed By: #### L 501.1400, L500.4050, L100.0100 #### [facility] [address] [place], [address] White blood cell (WBC) count Ordered By: Mavisalissa Sapp on 01-29-2025 WBC (Bld) [#/Vol] 8.4 10*3/uL 4.4-11.0 [facility] Orthopedic Visit Reporton Orthopedic Visit Report [facility] [address] [place] [address] [address] [place] [address] OFFICE VISIT Date of Service: 01/24/25 MR#: [id number] Acct: [id number] Name: ANTONI GOLDSMITH Rep #: [id number] : 1950 Provider: Dr. Loyd manuel DO Age/Sex: 74/M Location: [facility] [place] Status: Signed Intake Vital Signs 12/04/24 14:37 Height 5 ft 9 in Weight: 250 lb 2 oz BMI 36.9 Intake Visit Reasons: BILATERAL KNEES Allergies doxycycline Allergy (Severe, Verified 01/24/25 12:57) swelling latex Allergy (Intermediate, Verified 01/24/25 12:57) rash Medications ???Medication ???Instructions ???Recorded ???Confirmed ???Type aspirin 81 mg tablet,delayed 81 mg PO DAILY 02/21/19 01/24/25 H istory release cetirizine 10 mg tablet (Zyrtec) 5 mg PO DAILY PRN 02/21/19 5 History glucosamine HCl 1,500 mg tablet 1,500 mg PO DAILY 02/21/19 5 History multivitamin 1 cap PO DAILY 02/21/19 01/24/25 H istory biotin 1 mg capsule 1 mg PO DAILY 06/29/22 01/24/25 Hi story glucosamine-chondroitin 250 mg-200 2 tab PO BID 06/29/22 01/24/25 H istory mg tablet (Osteo Bi-Flex) lisinopril 20 2 tab PO DAILY #180 tabs 04/18/24 01/24/25 Rx mg-hydrochlorothiazide 12.5 mg tablet doxazosin 4 mg tablet 4 mg PO BID 3 months #180 tabs 01/24/25 Rx amlodipine 10 mg tablet 10 mg PO DAILY #90 tabs 10/03/24 0 01/24/25 Rx indomethacin 50 mg capsule 50 mg PO BID 12/04/24 01/24/25 His tory meloxicam 15 mg tablet 15 mg PO DAILY PRN pain #90 tabs 0 12/18/24 01/24/25 Rx Have you fallen in the past year?: No PFSH Medical History Elevated PSA BPH (benign prostatic hyperplasia) Abnormal EKG Flu vaccine need Osteoarthritis Bilateral primary osteoarthritis of knee Health care maintenance ESTRELLA (acute kidney injury) Hearing loss in right ear benign growth on prostate History of squamous cell carcinoma History of basal cell carcinoma History of kidney stones Hypertension History of pneumonia Gout Arthritis Seasonal allergies Surgical History History of bilateral cataract extraction Hx of tonsillectomy Family History Father Hypertension Brother Hypertension CVA (cerebral vascular accident) Mother Hypertension CVA (cerebral vascular accident) Grandmother Cancer Social History Smoking Status: Never smoker alcohol intake: current alcohol intake frequency: a few times a month substance use type: does not use what type of physical activity do you participate in: walking frequency: daily HPI BILATERAL KNEES Details: This documentation accurately reflects the service provided and the decisions made by me, Dr. Loyd Watters, DO 01/24/25 [id number]. Part of today???s visit was documented by Maame HULL, acting as scribe. ANTONI GOLDSMITH is a 74 year old M here today for bilateral knee pain. He was having swelling in the left leg but that has came down now. He would like to discuss knee replacement as well. He would like to do both at the same time. The tenderness,swelling and redness in the left index finger has went away. He has been taking the indomethacin. He cannot state that 1 knee is worse than the other he does feel is affecting his quality of life he cannot walk in a grocery store without having significant discomfort. 12/04/2024:74 year old M here today for bilateral knees. Patient notes that he has had knee pain for about 5 years with his pain worsening recently. Patient complains of pain over his anterior knee. He denies any known injury. He states that he has bilateral leg swelling. He has popping and clicking in his knees which is a uncomfortable. He has knee instability. Patient is using a walker to ambulate. Patient notes that he is taking ibuprofen daily for pain. He denies any recent xrays, injections, bracing, or physical therapy. No fevers or chills. He does have a history of gout. He has stiffness of his left index finger with swelling and redness. He denies any recent injury although hurt himself with a nail gun over a year ago. He notes his pain started about 5 days ago. He does have indomethacin at home from prior gout attacks. Plan:Educated the patient about the anatomy of the knee and etiology of his pain. Spoke with him about having severe osteoarthritis of his bilateral knee. Explained his options- steroid injection, viscosupplementation injections, medrol dose tristan, physical therapy, bracing, total knee arthroplasty. Recommended the patient get some lab work for uric acid as he likely is having a gout flare. Gave the patient a paper regarding the gout diet. If he has high uric (more content not included)... Normal [facility] Finger(s) Min 2 Viewson 11-22 Finger(s) Min 2 Views [facility] [address] [place] [address] Finger(s) Min 2 Views MR#: [id number] Acct: [id number] Name: ANTONI GOLDSMITH Rep #: [id number] : 1950 M 74 From: Brenda Hirsch MD PCP: Dr. Cate Sapp MD Status: [facility] AMB Study: Finger(s) Min 2 Views Date of Exam: 12/04/24 Exam# [id number] Ordering Dr: Loyd Watters DO [id number] INDICATION: pain -- index finger EXAMINATION/TECHNIQUE: X-RAY - LEFT HAND XR Fingers Min 2 Views 3 VIEWS COMPARISON: Right middle finger dated August 14, 2020 FINDINGS: SOFT TISSUES: There is soft tissue swelling adjacent to the distal interphalangeal joint. No radiopaque foreign body. BONES/JOINTS: No acute fracture or subluxation.. Normal alignment. There are extensive degenerative changes of the second distal interphalangeal joint characterized by joint space narrowing, subchondral sclerosis and subchondral cysts. There are less pronounced degenerative changes within the proximal interphalangeal joint. No sclerotic or destructive changes observed. RAD/Finger(s) Min 2 Views IMPRESSION: Degenerative changes of the interphalangeal joints, most pronounced within the DIP joint with overlying soft tissue swelling. Electronically Signed: Brenda Hirsch MD at 13:35 EST , CC: Dr. Cate Sapp MD; Dr. 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 Normal [facility] Knee 4 or More Viewson 12-04 Knee 4 or More Views [facility] [address] [place] [address] Knee 4 or More Views MR#: [id number] Acct: [id number] Name: ANTONI GOLDSMITH Rep #: [id number] : 1950 M 74 From: Yoni Eckert MD PCP: Dr. Cate Sapp MD Status: [facility] Study: Knee 4 or More Views Date of Exam: 12/04/24 Exam# [id number] Ordering Dr: Loyd Watters DO [id number] STUDY: X-RAY - LEFT KNEE REASON FOR EXAM: Male, 74 years old. Pain. TECHNIQUE: 4 views of the left knee. COMPARISON: None. FINDINGS: Normal visualized distal femur. Normal visualized proximal tibia and fibula. Normal proximal tibiofibular articulation. There is no demonstrated fracture. There is severe degenerative arthrosis of the medial femorotibial compartment with severe joint space narrowing. There is mild degenerative arthrosis of the lateral femorotibial compartment. There is moderate degenerative arthrosis of the patellofemoral articulation. There is a tiny joint effusion. The soft tissue structures are unremarkable. RAD/Knee 4 or More Views IMPRESSION: Tricompartment degenerative arthrosis of the left knee, most severe in the medial femorotibial compartment. Tiny joint effusion. No demonstrated fracture. Electronically Signed: Yoni Eckert MD at 15:51 EST Reading Location ID and State: [facility] / MD , Service support , CC: Dr. Cate Sapp MD; Dr. 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 Normal [facility] Knee 4 or More Views [facility] [address] [place] [address] Knee 4 or More Views MR#: [id number] Acct: [id number] Name: ANTONI GOLDSMITH Rep #: [id number] : 1950 M 74 From: Yoni Eckert MD PCP: Dr. Cate Sapp MD Status: DEP AMB Study: Knee 4 or More Views Date of Exam: 12/04/24 Exam# [id number] Ordering Dr: Loyd Watters DO [id number] STUDY: X-RAY - RIGHT KNEE REASON FOR EXAM: Male, 74 years old. Pain. TECHNIQUE: 4 views of the right knee. COMPARISON: None. FINDINGS: Normal visualized distal femur. Normal visualized proximal tibia and fibula. Normal proximal tibiofibular articulation. There is no demonstrated fracture. There is severe degenerative arthrosis of the medial femorotibial compartment with severe joint space narrowing. There is mild degenerative arthrosis of the lateral femorotibial compartment. There is moderate degenerative arthrosis of the patellofemoral articulation. There is a tiny joint effusion. The soft tissue structures are unremarkable. RAD/Knee 4 or More Views IMPRESSION: Tricompartment degenerative arthrosis, most severe in the medial femorotibial compartment. Tiny joint effusion. No demonstrated fracture. Electronically Signed: Yoni Eckert MD at 15:55 EST Reading Location ID and State: [facility] / MD , Service support , CC: Dr. Cate Sapp MD; Dr. 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 Normal [facility] Orthopedic Visit Reporton Orthopedic Visit Report [facility] [address] [place] [address] [place] [address] OFFICE VISIT Date of Service: 12/04/24 MR#: [id number] Acct: [id number] Name: ANTONI GOLDSMITH Rep #: [id number] : 1950 Provider: Dr. Loyd manuel DO Age/Sex: 74/M Location: [facility] [place] Status: Signed Intake Vital Signs 10/09/24 13:35 12/04/24 14:37 Height 5 ft 9 in 5 ft 9 in Weight: 252 lb 250 lb 2 oz BMI 37.2 36.9 BP 130/60 H Blood Pressure Location Lt brachial Position Sitting Respiration 16 Pulse 78 Pulse Source Monitor Temp 98.3 F Temp Source Temporal Pulse Oximetry (%) 97 Oxygen Delivery Method room air Intake Visit Reasons: BILATERAL KNEES Allergies doxycycline Allergy (Severe, Verified 12/04/24 14:34) swelling latex Allergy (Intermediate, Verified 12/04/24 14:34) rash Medications ???Medication ???Instructions ???Recorded ???Confirmed ???Type aspirin 81 mg tablet,delayed 81 mg PO DAILY 02/21/19 12/04/24 History release cetirizine 10 mg tablet (Zyrtec) 5 mg PO DAILY PRN 02/21/19 12/04/24 History glucosamine HCl 1,500 mg tablet 1,500 mg PO DAILY 02/21/19 12/04/24 History multivitamin 1 cap PO DAILY 02/21/19 12/04/24 History biotin 1 mg capsule 1 mg PO DAILY 06/29/22 12/04/24 History glucosamine-chondroitin 250 mg-200 2 tab PO BID 06/29/22 12/04/24 History mg tablet (Osteo Bi-Flex) lisinopril 20 2 tab PO DAILY #180 tabs 04/18/24 12/04/24 Rx mg-hydrochlorothiazide 12.5 mg tablet doxazosin 4 mg tablet 4 mg PO BID 3 months #180 tabs 09/04/24 12/04/24 Rx meloxicam 15 mg tablet 15 mg PO DAILY PRN pain #90 tabs 09/20/24 12/04/24 Rx amlodipine 10 mg tablet 10 mg PO DAILY #90 tabs 10/03/24 12/04/24 Rx indomethacin 50 mg capsule 50 mg PO BID 12/04/24 12/04/24 History methylprednisolone 4 mg tablets in See Rx Instructions PO PER PKG DIR 12/04/24 12/04/24 Rx a dose pack (Medrol (Tristan)) #21 tabs Have you fallen in the past year?: No PFSH Medical History Elevated PSA BPH (benign prostatic hyperplasia) Abnormal EKG Flu vaccine need Osteoarthritis Bilateral primary osteoarthritis of knee Health care maintenance ESTRELLA (acute kidney injury) Hearing loss in right ear benign growth on prostate History of squamous cell carcinoma History of basal cell carcinoma History of kidney stones Hypertension History of pneumonia Gout Arthritis Seasonal allergies Surgical History History of bilateral cataract extraction Hx of tonsillectomy Family History Father Hypertension Brother Hypertension CVA (cerebral vascular accident) Mother Hypertension CVA (cerebral vascular accident) Grandmother Cancer Social History Smoking Status: Never smoker alcohol intake: current alcohol intake frequency: a few times a month substance use type: does not use what type of physical activity do you participate in: walking frequency: daily HPI BILATERAL KNEES Details: This documentation accurately reflects the service provided and the decisions made by me, Dr. Loyd Watters, DO 12/04/24 0901. Part of today???s visit was documented by [ ], acting as scribe. ANTONI GOLDSMITH is a 74 year old M here today for bilateral knees. Patient notes that he has had knee pain for about 5 years with his pain worsening recently. Patient complains of pain over his anterior knee. He denies any known injury. He states that he has bilateral leg swelling. He has popping and clicking in his knees which is a uncomfortable. He has knee instability. Patient is using a walker to ambulate. Patient notes that he is taking ibuprofen daily for pain. He denies any recent xrays, injections, bracing, or physical therapy. No fevers or chills. He does have a history of gout. He has stiffness of his left index finger with swelling and redness. He denies any recent injury although hurt himself with a nail gun over a year ago. He notes his pain started about 5 days ago. He does have indomethacin at home from prior gout attacks. 10/01/2021 visit:here today for continued bilateral knee pain. Patient states that he is doing better today due to a recent cataract surgery and limiting his activities. He states that he been v suzie active and his pain has been increasing. He has an injection 11/29/20 which was helpful for until June. He has pain over his anterior knee. Patient has popping and clicking, and grinding. Patient would like to discuss repeat injection. Plan:Patient may get repeat injections every 3 months as needed. Spoke with him about viscosupplementation injections if he would like to try those. Expla (more content not included)... Normal [facility] Serum or plasma uric acid me asurement (mass/volume)Ordered By: Loyd Watters on 12-04-2024 Urate [Mass/Vol] 7.0 mg/dL 3.5-7.2 [facility] Comment on above: The drugs N-Acetylcy steine and Metamizole may falsely depress this assay. Uric Acidon 12-04-2024 URIC 7.0 mg/dL Normal 3.5-7.2 [facility] Comment on above: Result Comment: The drugs N-Acetylcysteine and Metamizole may falsely depress this assay. Performed By: #### L 501.1400 #### [facility] [address] [place], [place], [id number] Absolute neutrophil countOrd ered By: Cate Sapp on 10-09-2024 Neutrophils (Bld) [#/Vol] 5.7 10*3/uL 2.0-7.7 [facility] Albumin to globulin ratioOrd ered By: Cate Sapp on 10-09-2024 Albumin/Globulin [Mass ratio] 1.1 {ratio} 0.9-2.4 [facility] Basophil percentageOrdered B y: Cate Sapp on 10-09-2024 Basophils/100 WBC (Bld) 0.5 % 0-1 [facility] Bilirubin, totalOrdered By: Cate Sapp on 10-09-2024 Bilirubin [Mass/Vol] 0.50 mg/dL 0.20-1.00 [facility] Comment on above: For patients on eltr ombopag therapy, use of Dimension [place] TBIL is not recommended. Blood urea nitrogen (BUN)/cr eatinine ratioOrdered By: Cate Sapp on 10-09-2024 Urea nitrogen/Creatinine [Mass ratio] 16.7 mg/mg 10-20 [facility] CBC W/Diff, Automatedon 09-22 Absolute Lymph 1.79 X10 3/uL Normal 0.83-4.51 [facility] Comment on above: Performed By: #### L 500.4050, L500.4100, L100.0100, L501.9910 ####[facility] [address] [place], [address] Absolute Neut 5.7 X10 3/uL Normal 2.0-7.7 [facility] Comment on above: Performed By: #### L 500.4050, L500.4100, L100.0100, L501.9910 ####[facility] [address] [place], [address] Basophils/100 WBC (Bld) 0.5 % Normal 0-1 [facility] Comment on above: Performed By: #### L 500.4050, L500.4100, L100.0100, L501.9910 ####[facility] [address] [place], [address] Eosinophils/100 WBC (Bld) 1.7 % Normal 0-5 [facility] Comment on above: Performed By: #### L 500.4050, L500.4100, L100.0100, L501.9910 ####[facility] [address] [place], [address] Erythrocyte distribution width (RBC) [Ratio] 12.7 % Normal 11.6-14.6 [facility] Comment on above: Performed By: #### L 500.4050, L500.4100, L100.0100, L501.9910 ####[facility] [address] [place], [address] Hematocrit (Bld) [Volume fraction] 44.6 % Normal 40-54 [facility] Comment on above: Performed By: #### L 500.4050, L500.4100, L100.0100, L501.9910 ####[facility] [address] [place], [address] Hemoglobin (Bld) [Mass/Vol] 15.3 g/dL Normal 13.0-16.5 [facility] Comment on above: Performed By: #### L 500.4050, L500.4100, L100.0100, L501.9910 ####[facility] [address] [place], [address] IG% 0.300 Normal 0.0-0.9 [facility] Comment on above: Result Comment: IG% - Immature Granulocytes (promyelocytes, myelocytes and metamyelocytes) > 1% indicates that a LEFT SHIFT is Present. Performed By: #### L 500.4050, L500.4100, L100.0100, L501.9910 ####[facility] [address] [place], [address] Lymphocytes/100 WBC (Bld) 20.7 % Normal 19-41 [facility] Comment on above: Performed By: #### L 500.4050, L500.4100, L100.0100, L501.9910 ####[facility] [address] [place], [address] MCH (RBC) [Entitic mass] 31.7 pg Normal 27.0-32.0 [facility] Comment on above: Performed By: #### L 500.4050, L500.4100, L100.0100, L501.9910 ####[facility] [address] [place], [address] MCHC (RBC) [Mass/Vol] 34.3 g/dL Normal 32-36 [facility] Comment on above: Performed By: #### L 500.4050, L500.4100, L100.0100, L501.9910 ####[facility] [address] [place], [address] MCV (RBC) [Entitic vol] 92.3 fL Normal 80-94 [facility] Comment on above: Performed By: #### L 500.4050, L500.4100, L100.0100, L501.9910 ####[facility] [address] [place], [address] Monocytes/100 WBC (Bld) 10.3 % High 0-10 [facility] Comment on above: Performed By: #### L 500.4050, L500.4100, L100.0100, L501.9910 ####[facility] [address] [place], [address] Neutrophils/100 WBC (Bld) 66.5 % Normal 47-70 [facility] Comment on above: Performed By: #### L 500.4050, L500.4100, L100.0100, L501.9910 ####[facility] [address] [place], [address] Nucleated RBC (Bld) [#/Vol] 0 10*3/uL Normal 0-5 [facility] Comment on above: Performed By: #### L 500.4050, L500.4100, L100.0100, L501.9910 ####[facility] [address] [place], [address] Platelet mean volume (Bld) [Entitic vol] 11.9 fL Normal 6.2-12.0 [facility] Comment on above: Performed By: #### L 500.4050, L500.4100, L100.0100, L501.9910 ####[facility] [address] [place], [address] Platelets (Bld) [#/Vol] 266 10*3/uL Normal 150-450 [facility] Comment on above: Performed By: #### L 500.4050, L500.4100, L100.0100, L501.9910 ####[facility] [address] [place], [address] RBC (Bld) [#/Vol] 4.83 10*6/uL Normal 4.6-6.2 [facility] Comment on above: Performed By: #### L 500.4050, L500.4100, L100.0100, L501.9910 ####[facility] [address] [place], [address] RDW SD 43.3 fl Normal 35.1-43.9 [facility] Comment on above: Performed By: #### L 500.4050, L500.4100, L100.0100, L501.9910 ####[facility] [address] [place], [address] WBC (Bld) [#/Vol] 8.6 10*3/uL Normal 4.4-11.0 [facility] Comment on above: Performed By: #### L 500.4050, L500.4100, L100.0100, L501.9910 ####[facility] [address] [place], [address] Carbon dioxide measurementOr dered By: Cate Sapp on 10-09-2024 CO2 [Moles/Vol] 26.0 mmol/L 21.0-32.0 [facility] Chloride measurementOrdered By: Cate Sapp on 10-09-2024 Chloride [Moles/Vol] 106 mmol/L 98-107 [facility] Comprehensive Metabolic Prof ilon 10-09-2024 Albumin [Mass/Vol] 3.8 g/dL Normal 3.2-5.0 [facility] Comment on above: Performed By: #### L 500.4050, L500.4100, L100.0100, L501.9910 ####[facility] [address] [place], [address] Albumin/Globulin [Mass ratio] 1.1 {ratio} Normal 0.9-2.4 [facility] Comment on above: Performed By: #### L 500.4050, L500.4100, L100.0100, L501.9910 ####[facility] [address] [place], [address] ALK P 51 U/L Normal 45-117 [facility] Comment on above: Performed By: #### L 500.4050, L500.4100, L100.0100, L501.9910 ####[facility] [address] [place], [address] ALT [Catalytic activity/Vol] 41 U/L Normal 16-61 [facility] Comment on above: Performed By: #### L 500.4050, L500.4100, L100.0100, L501.9910 ####[facility] [address] [place], [address] AST [Catalytic activity/Vol] 29 U/L Normal 15-37 [facility] Comment on above: Performed By: #### L 500.4050, L500.4100, L100.0100, L501.9910 ####[facility] [address] [place], [address] Bilirubin [Mass/Vol] 0.50 mg/dL Normal 0.20-1.00 [facility] Comment on above: Result Comment: For patients on eltrombopag therapy, use of Dimension [place] TBIL is not recommended. Performed By: #### L 500.4050, L500.4100, L100.0100, L501.9910 ####[facility] [address] [place], [address] BUN/CRE 16.7 RATIO Normal 10-20 [facility] Comment on above: Performed By: #### L 500.4050, L500.4100, L100.0100, L501.9910 ####[facility] [address] [place], [address] CA,Total 8.9 mg/dL Normal 8.5-10.1 [facility] Comment on above: Performed By: #### L 500.4050, L500.4100, L100.0100, L501.9910 ####[facility] [address] [place], [address] Chloride [Moles/Vol] 106 mmol/L Normal 98-107 [facility] Comment on above: Performed By: #### L 500.4050, L500.4100, L100.0100, L501.9910 ####[facility] [address] [place], [address] CO2 [Moles/Vol] 26.0 mmol/L Normal 21.0-32.0 [facility] Comment on above: Performed By: #### L 500.4050, L500.4100, L100.0100, L501.9910 ####[facility] [address] [place], [address] Creatinine [Mass/Vol] 1.20 mg/dL Normal 0.70-1.30 [facility] Comment on above: Result Comment: The validity of the calculated GFR GFRAA in patients over 70 years has not been determined. Clinical correlation is essential. Performed By: #### L 500.4050, L500.4100, L100.0100, L501.9910 ####[facility] [address] [place], [address] EST GFR - AA 76 mL/min Normal >60 [facility] Comment on above: Result Comment: Afri can English GFR Calc Performed By: #### L 500.4050, L500.4100, L100.0100, L501.9910 ####[facility] [address] [place], [address] GAP 5 Normal 5-15 [facility] Comment on above: Performed By: #### L 500.4050, L500.4100, L100.0100, L501.9910 ####[facility] [address] [place], [address] GFR/1.73 sq M.predicted among non-blacks MDRD (S/P/Bld) [Vol rate/Area] 63 mL/min/{1.73_m2} Normal >60 [facility] Comment on above: Result Comment: Non- GFR Calc Performed By: #### L 500.4050, L500.4100, L100.0100, L501.9910 ####[facility] [address] [place], [address] Globulin (S) [Mass/Vol] 3.5 g/dL Normal 2.2-4.2 [facility] Comment on above: Performed By: #### L 500.4050, L500.4100, L100.0100, L501.9910 ####[facility] [address] [place], [address] Glucose [Mass/Vol] 119 mg/dL High 74-106 [facility] Comment on above: Result Comment: Fast ing Glucose result from 100 to 125 mg/dL suggests IMPAIRED HOMEOSTASIS per A.D.A. criteria. Performed By: #### L 500.4050, L500.4100, L100.0100, L501.9910 ####[facility] [address] [place], [address] Potassium [Moles/Vol] 3.7 mmol/L Normal 3.5-5.1 [facility] Comment on above: Performed By: #### L 500.4050, L500.4100, L100.0100, L501.9910 ####[facility] [address] [place], [address] Sodium [Moles/Vol] 137 mmol/L Normal 136-145 [facility] Comment on above: Performed By: #### L 500.4050, L500.4100, L100.0100, L501.9910 ####[facility] [address] [place], [address] T PROT 7.3 g/dL Normal 6.4-8.2 [facility] Comment on above: Performed By: #### L 500.4050, L500.4100, L100.0100, L501.9910 ####[facility] [address] [place], [address] Urea nitrogen [Mass/Vol] 20 mg/dL High -18 [facility] Comment on above: Performed By: #### L 500.4050, L500.4100, L100.0100, L501.9910 ####[facility] [address] [place], [address] Eosinophil percentageOrdered By: Cate Sapp on 10-09-2024 Eosinophils/100 WBC (Bld) 1.7 % 0-5 [facility] Erythrocyte distribution wid th ratioOrdered By: Cate Sapp on 10-09-2024 Erythrocyte distribution width (RBC) [Ratio] 12.7 % 11.6-14.6 [facility] Erythrocyte distribution wid th standard deviationOrdered By: Cate Sapp on 10-09-2024 Erythrocyte distribution width (RBC) [Entitic vol] 43.3 fL 35.1-43.9 [facility] Estimated glomerular filtrat ion rate (GFR) AmericanOrdered By: Cate Sapp on 10-09-2024 Estimated GFR (MDRD) Amer 76 mL/min >60 [facility] Comment on above: GFR Calc Glomerular filtration rate ( GFR) estimationOrdered By: Cate Sapp on 10-09-2024 Estimated GFR (MDRD) Non-Af Amer 63 mL/min >60 [facility] Comment on above: Non- GFR Calc Glucose measurementOrdered B y: Cate Sapp on 10-09-2024 Glucose [Mass/Vol] 119 mg/dL High 74-106 [facility] Comment on above: Fasting Glucose resu lt from 100 to 125 mg/dL suggests IMPAIRED HOMEOSTASIS per A.D.A. criteria. Hematocrit Auto (Bld) [Volum e fraction]Ordered By: Cate Sapp on 10-09-2024 Hematocrit (Bld) [Volume fraction] 44.6 % 40-54 [facility] Hemoglobin measurementOrdere d By: Cate Sapp on 10-09-2024 Hemoglobin (Bld) [Mass/Vol] 15.3 g/dL 13.0-16.5 [facility] High density lipoprotein (HD L) measurementOrdered By: Cate Sapp on 10-09-2024 Cholesterol in HDL [Mass/Vol] 62 mg/dL >40 [facility] Comment on above: The drugs N-Acetylcy steine and Metamizole may falsely depress this assay. Reference Range HDL <40 mg/dL Low HDL Cholesterol HDL >or= 60 mg/dL High HDL Cholesterol Immature granulocytes/100 WB C Auto (Bld)Ordered By: Cate Sapp on 10-09-2024 Immature granulocytes/100 WBC (Bld) 0.300 % 0.0-0.9 [facility] Comment on above: IG% - Immature Granu locytes (promyelocytes, myelocytes and metamyelocytes) > 1% indicates that a LEFT SHIFT is Present. Internal Medicine Office Vis gautam 10-09-2024 Internal Medicine Office Visit [facility] [address] [place] [address] OFFICE VISIT Date of Service: 10/09/24 MR#: [id number] Acct: [id number] Name: ANTONI GOLDSMITH Rep #: [id number] : 1950 Provider: Dr. Cate dan MD Age/Sex: 74/M Location: [facility] [place] Status: Signed with Addenda ADDENDUM by INDIGO Hart on 10/09/24 at 1444 Office Procedure Documentation entered by Selena Hart LPN 10/09/24 14:44: Immunizations Fluad Triv (65y up)(PF) 45 mcg (15 mcg x 3)/0.5 mL IM syringe Performing Provider: Cate Sapp MD Performing Location: [facility] Administered by: Selena Hart LPN on 10/09/24 14:30 Dose Route Admin Location Dispensed Lot Number Expiration Date [facility] [employer] 45 mcg IM Left Deltoid 0.5 mL [id number] 05/21/26 66541-697-06 [employer] VIS Given Date VIS Provided VIS Publication Date 10/09/24 Single Vaccine 24 Eligibility Eligibility Date Funding Source None Administration Comments: pt requesting influenza immunization today, states that he has had in years past with no adverse reactions. pt completed and signed consent form placed in scan bin immunization administered in left deltoid tolerated well Date cc: * Signed ADDENDUM by INDIGO Hart on 10/09/24 at 1441 Office Procedure Documentation entered by Selena Hart LPN 10/09/24 14:40: Immunizations Boostrix Tdap 2.5 Lf unit-8 mcg-5 Lf/0.5 mL intramuscular syringe Performing Provider: Cate Sapp MD Performing Location: [facility] Administered by: Selena Hart LPN on 10/09/24 14:38 Dose Route Admin Location Dispensed Lot Number Expiration Date [facility] Ray ufacturer 0.5 mL IM Right Deltoid 0.5 mL [id number] 04/21/26 73148-946-50 [employer] VIS Given Date VIS Provided VIS Publication Date 10/09/24 Single Vaccine 21 Eligibility Eligibility Date Funding Source Not Applicable Administration Comments: pt requesting TDAP completed and signed consent form administered in right deltoid. pt tolerated well consent form placed in scan bin Date cc: * Signed Intake Vital Signs 04/06/24 14:41 10/09/24 13:35 Height 5 ft 9 in 5 ft 9 in Weight: 252 lb BMI 37.2 BP 130/60 H Blood Pressure Location Lt brachial Position Sitting Respiration 16 Pulse 78 Pulse Source Monitor Temp 98.3 F Temp Source Temporal Pulse Oximetry (%) 97 Oxygen Delivery Method room air Intake Visit Reasons: 6 M FU Chief Complaint: 6 M FU chronic conditions Color Dipper Required: No Accompanied by: Is patient in pain?: No Allergies doxycycline Allergy (Severe, Verified 10/09/24 13:27) swelling latex Allergy (Intermediate, Verified 10/09/24 13:27) rash Medications ???Medication ???Instructions ???Recorded ???Confirmed ???Type aspirin 81 mg tablet,delayed 81 mg PO DAILY 02/21/19 10/09/24 History release cetirizine 10 mg tablet (Zyrtec) 5 mg PO DAILY PRN 02/21/19 10/09/24 History glucosamine HCl 1,500 mg tablet 1,500 mg PO DAILY 02/21/19 10/09/24 History multivitamin 1 cap PO DAILY 02/21/19 10/09/24 History biotin 1 mg capsule 1 mg PO DAILY 06/29/22 10/09/24 History glucosamine-chondroitin 250 mg-200 2 tab PO BID 06/29/22 10/09/24 History mg tablet (Osteo Bi-Flex) lisinopril 20 2 tab PO DAILY #180 tabs 04/18/24 10/09/24 Rx mg-hydrochlorothiazide 12.5 mg tablet doxazosin 4 mg tablet 4 mg PO BID 3 months #180 tabs 09/04/24 10/09/24 Rx meloxicam 15 mg tablet 15 mg PO DAILY PRN pain #90 tabs 09/20/24 10/09/24 Rx amlodipine 10 mg tablet 10 mg PO DAILY #90 tabs 10/03/24 10/09/24 Rx Have you fallen in the past year?: No PFSH Medical History Elevated PSA BPH (benign prostatic hyperplasia) Abnormal EKG Flu vaccine need Osteoarthritis Bilateral primary osteoarthritis of knee Health care maintenance ESTRELLA (acute kidney injury) Hearing loss in right ear benign growth on prostate History of squamous cell carcinoma History of basal cell carcinoma History of kidney stones Hypertension History of pneumonia Gout Arthritis Seasonal allergies Surgical History History of bilateral cataract extraction Hx of tonsillectomy Family History Father Hypertension Brother Hypertension CVA (cerebral vascular accident) Mother Hypertension CVA (cerebral vascular accident) Grandmother Cancer Social History Smoking Status: Never smoker alcohol intake: current alcohol (more content not included)... Normal [facility] Laboratory - Chemistry and C hemistry - challengeOrdered By: Cate Sapp on 10-09-2024 AST [Catalytic activity/Vol] 29 U/L 15-37 [facility] Lipid Profileon 10-09-2024 Cholesterol [Mass/Vol] 188 mg/dL Normal 200 [facility] Comment on above: Result Comment: <200 mg/dL Desirable 200-240 mg/dL Borderline >240 mg/dL High Risk Performed By: #### L 500.4050, L500.4100, L100.0100, L501.9910 ####[facility] [address] [place], [address] Cholesterol in HDL [Mass/Vol] 62 mg/dL Normal [facility] Comment on above: Result Comment: The drugs N-Acetylcysteine and Metamizole may falsely depress this assay. Reference Range HDL <40 mg/dL Low HDL Cholesterol HDL >or= 60 mg/dL High HDL Cholesterol Performed By: #### L 500.4050, L500.4100, L100.0100, L501.9910 ####[facility] [address] [place], [address] Cholesterol in LDL [Mass/Vol] 81 mg/dL Normal 0-130 [facility] Comment on above: Performed By: #### L 500.4050, L500.4100, L100.0100, L501.9910 ####[facility] [address] [place], [address] Cholesterol in VLDL [Mass/Vol] 45 mg/dL High 5-40 [facility] Comment on above: Performed By: #### L 500.4050, L500.4100, L100.0100, L501.9910 ####[facility] [address] [place], [address] Triglyceride [Mass/Vol] 225 mg/dL High [facility] Comment on above: Result Comment: The drugs N-Acetylcysteine and Metamizole may falsely depress this assay. Serum Triglycerides Reference Interval Normal <150 mg/dL Borderline high 150 - 199 mg/dL High 200 - 499 mg/dL Very High > or = 500 mg/dL Performed By: #### L 500.4050, L500.4100, L100.0100, L501.9910 ####[facility] [address] [place], [address] Low density lipoprotein (LDL ) cholesterol measurementOrdered By: Cate Sapp on 10-09-2024 Cholesterol in LDL [Mass/Vol] 81 mg/dL 0-130 [facility] Lymphocytes Auto (Unsp spec) [#/Vol]Ordered By: Cate Sapp on 10-09-2024 Lymphocytes (Bld) [#/Vol] 1.79 10*3/uL 0.83-4.51 [facility] Lymphocytes/100 WBC Auto (Un sp spec)Ordered By: Mavisdejonshobhacornelia Naidulaurauday on 10-09-2024 Lymphocytes/100 WBC (Bld) 20.7 % 19-41 [facility] MCV (mean corpuscular volume ) determinationOrdered By: Cate Sapp on 10-09-2024 MCV (RBC) [Entitic vol] 92.3 fL 80-94 [facility] Mean corpuscular hemoglobin (MCH) determinationOrdered By: Efalissa Sapp on 10-09-2024 MCH (RBC) [Entitic mass] 31.7 pg 27.0-32.0 [facility] Mean corpuscular hemoglobin concentration (MCHC) determinationOrdered By: Mavisalissa Kime on 10-09-2024 MCHC (RBC) [Mass/Vol] 34.3 g/dL 32-36 [facility] Mean platelet volume determi nationOrdered By: Cate Sapp on 10-09-2024 Platelet mean volume (Bld) [Entitic vol] 11.9 fL 6.2-12.0 [facility] Monocyte percentageOrdered B y: Cate Sapp on 10-09-2024 Monocytes/100 WBC (Bld) 10.3 % High 0-10 [facility] Neutrophil percentageOrdered By: Cate Sapp on 10-09-2024 Neutrophils/100 WBC (Bld) 66.5 % 47-70 [facility] Nucleated red blood cell per centageOrdered By: Cate Sapp on 10-09-2024 Nucleated RBC/100 WBC (Bld) [Ratio] 0 % 0-5 [facility] PSA,Total - Annual Screenon 10-09-2024 PSA,TOT SCREEN 3.82 ng/mL Normal 0.00-4.00 [facility] Comment on above: Result Comment: This test was performed using the TPSA assay method for the [employer] chemistry system. Values obtained with different assay methods cannot be used interchangably. When changing PSA assays in the course of monitoring a patient, additional sequential testing should be carried out to confirm baseline values. Performed By: #### L 500.4050, L500.4100, L100.0100, L501.9910 ####[facility] [address] [place], [address] Platelet countOrdered By: Mavis Sapp on 10-09-2024 Platelets (Bld) [#/Vol] 266 10*3/uL 150-450 [facility] Potassium measurementOrdered By: Cate Sapp on 10-09-2024 Potassium [Moles/Vol] 3.7 mmol/L 3.5-5.1 [facility] RBC Auto (Bld) [#/Vol]Ordere d By: Cate Sapp on 10-09-2024 RBC (Bld) [#/Vol] 4.83 10*6/uL 4.6-6.2 [facility] Screening prostate specific antigen (PSA) measurementOrdered By: Cate Sapp on 10-09-2024 Prostate Specific Antigen Screen 3.82 ng/mL 0.00-4.00 [facility] Comment on above: This test was perfor med using the TPSA assay method [facility] the[facility]. Values obtained with differentassay methods cannot be used interchangably.When changing PSA assays in the course of monitoring apatient, additional sequential testing should be carriedout to confirm baseline values. Serum anion gap measurementO rdered By: Cate Sapp on 10-09-2024 Anion gap [Moles/Vol] 5 mmol/L 5-15 [facility] Serum globulin measurementOr dered By: Cate Sapp on 10-09-2024 Globulin (S) [Mass/Vol] 3.5 g/dL 2.2-4.2 [facility] Serum or plasma alanine jensen otransferase (ALT) measurementOrdered By: Cate Sapp on 10-09-2024 ALT [Catalytic activity/Vol] 41 U/L 16-61 [facility] Serum or plasma albumin shanika urement (mass/volume)Ordered By: Cate Sapp on 10-09-2024 Albumin [Mass/Vol] 3.8 g/dL 3.2-5.0 [facility] Serum or plasma alkaline katty sphatase measurementOrdered By: Cate Sapp on 10-09-2024 ALP [Catalytic activity/Vol] 51 U/L 45-117 [facility] Serum or plasma calcium shanika urement (mass/volume)Ordered By: Cate Sapp on 10-09-2024 Calcium [Mass/Vol] 8.9 mg/dL 8.5-10.1 [facility] Serum or plasma cholesterol measurement (mass/volume)Ordered By: Cate Sapp on 10-09-2024 Cholesterol [Mass/Vol] 188 mg/dL <200 [facility] Comment on above: <200 mg/dL Desirable 200-240 mg/dL Borderline >240 mg/dL High Risk Serum or plasma creatinine m easurement (mass/volume)Ordered By: Cate Sapp on 10-09-2024 Creatinine [Mass/Vol] 1.20 mg/dL 0.70-1.30 [facility] Comment on above: The validity of the calculated GFR & GFRAA in patients over 70 years has not been determined. Clinical correlation is essential. Serum or plasma urea nitroge n measurement (mass/volume)Ordered By: Cate Sapp on 10-09-2024 Urea nitrogen [Mass/Vol] 20 mg/dL High 7-18 [facility] Sodium levelOrdered By: Bryan Sapp on 10-09-2024 Sodium [Moles/Vol] 137 mmol/L 136-145 [facility] Total proteinOrdered By: Trevor Sapp on 10-09-2024 Protein [Mass/Vol] 7.3 g/dL 6.4-8.2 [facility] Triglycerides measurementOrd ered By: Cate Sapp on 10-09-2024 Triglyceride [Mass/Vol] 225 mg/dL High <199 [facility] Comment on above: The drugs N-Acetylcy steine and Metamizole may falsely depress this assay.Serum Triglycerides Reference Interval Normal <150 mg/dL Borderline high 150 - 199 mg/dL High 200 - 499 mg/dL Very High > or = 500 mg/dL Very low density lipoprotein (VLDL) cholesterol measurementOrdered By: Cate Sapp on 10-09-2024 VLDL Cholesterol 45 mg/dL High 5-40 [facility] White blood cell (WBC) count Ordered By: Ctae Sapp on 10-09-2024 WBC (Bld) [#/Vol] 8.6 10*3/uL 4.4-11.0 [facility] No Panel InformationOrdered By: Jazmin Gonzalez on 09-21-2023 Percent Free Prostate Specific Ag 0.56 ng/mL N/A [facility] Comment on above: Mary ECLIA methodol ogy. Prostate Specific Ag, Ultra-Sensitv 1.890 ng/mL 0.000-4.000 [facility] Comment on above: Mary ECLIA methodol ogy.According to the [employer], Serum PSAshould decrease and remain at undetectable levels afterradical prostatectomy. The AUA defines biochemicalrecurrence as an initial PSA value 0.200 ng/mL or greaterfollowed by a subsequent confirmatory PSA value 0.200 ng/mLor greater. Values obtained with different assay methods orkits cannot be used interchangeably. Results cannot beinterpreted as absolute evidence of the presence or absenceof malignant disease. Serum or plasma free prostat e specific antigen/total prostate specific antigen ratioOrdered By: Jazmin Gonzalez on 09-21-2023 Free PSA/Total PSA [Mass fraction] 29.6 % . [facility] Comment on above: The table below list s the probability of prostate cancer formen with non-suspicious RAGHU results and total PSA between4 and 10 ng/mL, by patient age (Aledya et al, BENITA 1998,279:1542). % Free PSA 50-64 yr 65-75 yr 0.00-10.00% 56% 55% 10.01-15.00% 24% 35% 15.01-20.00% 17% 23% 20.01-25.00% 10% 20% >25.00% 5% 9%Please note: Aleyda et al did not make specific recommendations regarding the use of percent free PSA for any other population of men.Performed at: [facility] [id number] Director: Evan Rojo PhD, Phone: [phone] Absolute lymphocyte countOrd ered By: Cate Sapp on 06-30-2023 Lymphocytes Auto (Unsp spec) [#/Vol] 1.90 10*3/uL 0.83-4.51 [facility] Basophil percentageOrdered B y: Cate Sapp on 06-30-2023 Basophils/100 WBC (Bld) 0.5 % 0-1 [facility] Bilirubin [Mass/Vol] 0.50 mg/dL 0.20-1.00 [facility] Comment on above: For patients on eltr ombopag therapy, use of Dimension [place] TBIL is not recommended. Chloride [Moles/Vol] 107 mmol/L 98-107 [facility] Cholesterol [Mass/Vol] 184 mg/dL <200 [facility] Comment on above: <200 mg/dL Desirable 200-240 mg/dL Borderline >240 mg/dL High Risk Eosinophils/100 WBC (Bld) 2.0 % 0-5 [facility] Glucose [Mass/Vol] 110 mg/dL 74-106 [facility] Comment on above: Fasting Glucose resu lt from 100 to 125 mg/dL suggests IMPAIRED HOMEOSTASIS per A.D.A. criteria. Neutrophils (Bld) [#/Vol] 4.9 10*3/uL 2.0-7.7 [facility] Neutrophils/100 WBC (Bld) 61.0 % 47-70 [facility] Potassium [Moles/Vol] 3.8 mmol/L 3.5-5.1 [facility] Protein [Mass/Vol] 7.3 g/dL 6.4-8.2 [facility] Sodium [Moles/Vol] 140 mmol/L 136-145 [facility] Triglyceride [Mass/Vol] 277 mg/dL <199 [facility] Comment on above: The drugs N-Acetylcy steine and Metamizole may falsely depress this assay.Serum Triglycerides Reference Interval Normal <150 mg/dL Borderline high 150 - 199 mg/dL High 200 - 499 mg/dL Very High > or = 500 mg/dL WBC (Bld) [#/Vol] 8.0 10*3/uL 4.4-11.0 [facility] Blood erythrocytes count (nu mber/volume)Ordered By: Cate Sapp on 06-30-2023 RBC (Bld) [#/Vol] 4.65 10*6/uL 4.6-6.2 [facility] Blood hemoglobin measurement (mass/volume)Ordered By: Cate Sapp on 06-30-2023 Hemoglobin (Bld) [Mass/Vol] 14.7 g/dL 13.0-16.5 [facility] Blood lymphocytes/100 leukoc ytesOrdered By: Cate Sapp on 06-30-2023 Lymphocytes/100 WBC (Bld) 23.6 % 19-41 [facility] Blood monocytes/100 leukocyt esOrdered By: Cate Sapp on 06-30-2023 Monocytes/100 WBC (Bld) 12.3 % 0-10 [facility] Blood platelet mean volumeOr dered By: Cate Sapp on 06-30-2023 Platelet mean volume (Bld) [Entitic vol] 12.0 fL 6.2-12.0 [facility] Determination of erythrocyte mean corpuscular volume (MCV)Ordered By: Cate Sapp on 06-30-2023 MCV (RBC) [Entitic vol] 95.1 fL 80-94 [facility] Hematocrit Auto (Bld) [Volum e fraction]Ordered By: Cate Sapp on 06-30-2023 Hematocrit (Bld) [Volume fraction] 44.2 % 40-54 [facility] Laboratory - Chemistry and C hemistry - challengeOrdered By: Cate Sapp on 06-30-2023 ALP [Catalytic activity/Vol] 53 U/L 45-117 [facility] ALT [Catalytic activity/Vol] 49 U/L 16-61 [facility] CO2 [Moles/Vol] 26.0 mmol/L 21.0-32.0 [facility] Globulin (S) [Mass/Vol] 3.7 g/dL 2.2-4.2 [facility] Urea nitrogen/Creatinine [Mass ratio] 14.4 mg/mg 10-20 [facility] Laboratory - Hematology and Cell countsOrdered By: Cate Sapp on 06-30-2023 Erythrocyte distribution width (RBC) [Entitic vol] 47.1 fL 35.1-43.9 [facility] Erythrocyte distribution width (RBC) [Ratio] 13.4 % 11.6-14.6 [facility] Immature granulocytes/100 WBC (Bld) 0.600 % 0.0-0.9 [facility] Comment on above: IG% - Immature Granu locytes (promyelocytes, myelocytes and metamyelocytes) > 1% indicates that a LEFT SHIFT is Present. MCH (RBC) [Entitic mass] 31.6 pg 27.0-32.0 [facility] Nucleated RBC/100 WBC (Bld) [Ratio] 0 % 0-5 [facility] MCHC Auto (RBC) [Mass/Vol]Or dered By: Cate Sapp on 06-30-2023 MCHC (RBC) [Mass/Vol] 33.3 g/dL 32-36 [facility] No Panel InformationOrdered By: Cate Sapp on 06-30-2023 Estimated GFR (MDRD) Amer 78 mL/min >60 [facility] Comment on above: GFR Calc Estimated GFR (MDRD) Non-Af Amer 64 mL/min >60 [facility] Comment on above: Non- GFR Calc Prostate Specific Antigen Screen 5.07 ng/mL 0.00-4.00 [facility] Comment on above: This test was perfor med using the TPSA assay method for the[employer] chemistry system. Values obtained with differentassay methods cannot be used interchangably.When changing PSA assays in the course of monitoring apatient, additional sequential testing should be carriedout to confirm baseline values. Platelets bldOrdered By: Trevor Sapp on 06-30-2023 Platelets (Bld) [#/Vol] 264 10*3/uL 150-450 [facility] Serum or plasma albumin shanika urement (mass/volume)Ordered By: Cate Sapp on 06-30-2023 Albumin [Mass/Vol] 3.6 g/dL 3.2-5.0 [facility] Serum or plasma albumin/glob ulin mass ratioOrdered By: Cate Sapp on 06-30-2023 Albumin/Globulin [Mass ratio] 1.0 {ratio} 0.9-2.4 [facility] Serum or plasma calcium shanika urement (mass/volume)Ordered By: Cate Sapp on 06-30-2023 Calcium [Mass/Vol] 9.2 mg/dL 8.5-10.1 [facility] Serum or plasma cholesterol in HDL measurement (mass/volume)Ordered By: Cate Sapp on 06-30-2023 Cholesterol in HDL [Mass/Vol] 53 mg/dL >40 [facility] Comment on above: The drugs N-Acetylcy steine and Metamizole may falsely depress this assay. Reference Range HDL <40 mg/dL Low HDL Cholesterol HDL >or= 60 mg/dL High HDL Cholesterol Serum or plasma cholesterol in VLDL measurement (mass/volume)Ordered By: Cate Sapp on 06-30-2023 Cholesterol in VLDL [Mass/Vol] 55 mg/dL 5-40 [facility] Serum or plasma creatinine m easurement (mass/volume)Ordered By: Cate Sapp on 06-30-2023 Creatinine [Mass/Vol] 1.18 mg/dL 0.70-1.30 [facility] Comment on above: The validity of the calculated GFR & GFRAA in patients over 70 years has not been determined. Clinical correlation is essential. Serum or plasma low density lipoprotein (LDL) cholesterol measurement (mass/volume)Ordered By: Cate Sapp on 06-30-2023 Cholesterol in LDL [Mass/Vol] 76 mg/dL 0-130 [facility] Serum or plasma urea nitroge n measurement (mass/volume)Ordered By: Cate Sapp on 06-30-2023 Urea nitrogen [Mass/Vol] 17 mg/dL 7-18 [facility] Thin prep Papanicolaou smear with manual screeningOrdered By: [facility]corn[facility] Sapp on 06-30-2023 Thin prep Papanicolaou smear with manual screening 30 U/L 15-37 [facility] Thin prep Papanicolaou smear with manual screening 7 5-15 [facility] Basophil percentageon 2021 Chloride [Moles/Vol] 108 mmol/L 98-107 [facility] Work Phone: Glucose [Mass/Vol] 97 mg/dL 74-106 [facility] Work Phone: Potassium [Moles/Vol] 3.8 mmol/L 3.5-5.1 [facility] Work Phone: Sodium [Moles/Vol] 141 mmol/L 136-145 [facility] Work Phone: Laboratory - Chemistry and C hemistry - challengeon 06-29-2022 CO2 [Moles/Vol] 26.0 mmol/L 21.0-32.0 [facility] Work Phone: Urea nitrogen/Creatinine [Mass ratio] 17.0 mg/mg 10-20 [facility] Work Phone: No Panel Informationon 06-29 Estimated GFR (MDRD) Amer 89 mL/min >60 [facility] Work Phone: Comment on above: GFR Calc Estimated GFR (MDRD) Non-Af Amer 73 mL/min >60 [facility] Work Phone: Comment on above: Non- GFR Calc Serum or plasma calcium shanika urement (mass/volume)on 06-29-2022 Calcium [Mass/Vol] 8.8 mg/dL 8.5-10.1 [facility] Work Phone: Serum or plasma creatinine m easurement (mass/volume)on 06-29-2022 Creatinine [Mass/Vol] 1.06 mg/dL 0.70-1.30 [facility] Work Phone: Comment on above: The validity of the calculated GFR & GFRAA in patients over 70 years has not been determined. Clinical correlation is essential. Serum or plasma urea nitroge n measurement (mass/volume)on 06-29-2022 Urea nitrogen [Mass/Vol] 18 mg/dL 7-18 [facility] Work Phone: Thin prep Papanicolaou smear with manual screeningon 06-29-2022 Thin prep Papanicolaou smear with manual screening 7 5-15 [facility] Work Phone: PSA Screenon 06-08-2017 PSA Screen 2.2 ng/mL Normal 0.0-3.9 [facility] Comment on above: Performed By: #### L PSAS ####[address] [address] TSHon 06-08-2017 Thyroid stimulating hormone (TSH) 3.39 uIU/mL Normal 0.34-4.82 [facility] Comment on above: Performed By: #### L TSH ####[address] [address] Vital Signs Date Time Vital Sign Value Performing Clinician Kumar worthington 04-13-2025 11:03-0400 Body height 175.[address] Cate Sapp MD Work Phone: [facility] 04-13-2025 11:03-0400 Body mass index (BMI) [Ratio] 32.1 kg/m2 Dr. Cate Sapp MD Work Phone: [facility] 04-13-2025 11:03-0400 Body weight 98.[address] Cate Sapp MD Work Phone: [facility] 04-09-2025 13:16-0400 Body height 175.[address] Cate Sapp MD Work Phone: [facility] 04-09-2025 13:16-0400 Body mass index (BMI) [Ratio] 32.6 kg/m2 Dr. Cate Sapp MD Work Phone: [facility] 04-09-2025 13:16-0400 Body temperature 97.9 [degF] Dr. Cate Sapp MD Work Phone: [facility] 04-09-2025 13:16-0400 Body weight 100.[address] Cate Sapp MD Work Phone: [facility] 04-09-2025 13:16-0400 Diastolic blood pressure 62 mm[Hg] Dr. Cate Sapp MD Work Phone: [facility] 04-09-2025 13:16-0400 Heart rate 87 /min Dr. Cate Sapp MD Work Phone: [facility] 04-09-2025 13:16-0400 Respiratory rate 16 /min Dr. Cate Sapp MD Work Phone: [facility] 04-09-2025 13:16-0400 SaO2% (BldA) [Mass fraction] 99 % Dr. Cate Sapp MD Work Phone: [facility] 04-09-2025 13:16-0400 Systolic blood pressure 122 mm[Hg] Dr. Cate Sapp MD Work Phone: [facility] 03-19-2025 13:28-0400 Body mass index (BMI) [Ratio] 32.1 kg/m2 Dr. Cate Sapp MD Work Phone: [facility] 03-19-2025 13:28-0400 Body weight 98.88 kg Dr. Cate Sapp MD Work Phone: [facility] 03-06-2025 14:58-0400 Body temperature 97.2 [degF] Dr. Cate Sapp MD Work Phone: [facility] 03-06-2025 14:58-0400 Diastolic blood pressure 60 mm[Hg] Dr. Cate Sapp MD Work Phone: [facility] 03-06-2025 14:58-0400 Heart rate 91 /min Dr. Cate Sapp MD Work Phone: [facility] 03-06-2025 14:58-0400 Respiratory rate 18 /min Dr. Cate Sapp MD Work Phone: [facility] 03-06-2025 14:58-0400 SaO2% (BldA) [Mass fraction] 98 % Dr. Cate Sapp MD Work Phone: [facility] 03-06-2025 14:58-0400 Systolic blood pressure 109 mm[Hg] Dr. Cate Sapp MD Work Phone: [facility] 03-06-2025 11:30-0400 Inhaled oxygen flow rate 4 L/min Dr. Cate Sapp MD Work Phone: [facility] 03-06-2025 06:35-0400 Body height 175.[address] Cate Sapp MD Work Phone: [facility] 03-06-2025 06:35-0400 Body mass index (BMI) [Ratio] 32.6 kg/m2 Dr. Cate Sapp MD Work Phone: [facility] 03-06-2025 06:35-0400 Body weight 100.[address] Cate Sapp MD Work Phone: [facility] 02-28-2025 14:52-0400 Body mass index (BMI) [Ratio] 34 kg/m2 Dr. Cate Sapp MD Work Phone: [facility] 02-28-2025 14:52-0400 Body temperature 97.1 [degF] Dr. Cate Sapp MD Work Phone: [facility] 02-28-2025 14:52-0400 Body weight 104.[address] Cate Sapp MD Work Phone: [facility] 02-28-2025 14:52-0400 Diastolic blood pressure 60 mm[Hg] Dr. Cate Sapp MD Work Phone: [facility] 02-28-2025 14:52-0400 Heart rate 88 /min Dr. Cate Sapp MD Work Phone: [facility] 02-28-2025 14:52-0400 Respiratory rate 14 /min Dr. Cate Sapp MD Work Phone: [facility] 02-28-2025 14:52-0400 SaO2% (BldA) [Mass fraction] 97 % Dr. Cate Sapp MD Work Phone: [facility] 02-28-2025 14:52-0400 Systolic blood pressure 126 mm[Hg] Dr. Cate Sapp MD Work Phone: [facility] 01-29-2025 14:21-0400 Body height 175.[address] Cate Sapp MD Work Phone: [facility] 01-29-2025 14:21-0400 Body mass index (BMI) [Ratio] 34.8 kg/m2 Dr. Cate Sapp MD Work Phone: [facility] 01-29-2025 14:21-0400 Body temperature 98.4 [degF] Dr. Cate Sapp MD Work Phone: [facility] 01-29-2025 14:21-0400 Body weight 107.[address] Cate Sapp MD Work Phone: [facility] 01-29-2025 14:21-0400 Diastolic blood pressure 74 mm[Hg] Dr. Cate Sapp MD Work Phone: [facility] 01-29-2025 14:21-0400 Heart rate 68 /min Dr. Cate Sapp MD Work Phone: [facility] 01-29-2025 14:21-0400 Respiratory rate 16 /min Dr. Cate Sapp MD Work Phone: [facility] 01-29-2025 14:21-0400 SaO2% (BldA) [Mass fraction] 98 % Dr. Cate Sapp MD Work Phone: [facility] 01-29-2025 14:21-0400 Systolic blood pressure 122 mm[Hg] Dr. Cate Sapp MD Work Phone: [facility] 12-04-2024 14:37-0500 Body mass index (BMI) [Ratio] 36.9 kg/m2 Dr. Cate Sapp MD Work Phone: [facility] 12-04-2024 14:37-0500 Body weight 113.[address] Cate Sapp MD Work Phone: [facility] 10-09-2024 13:35-0500 Body mass index (BMI) [Ratio] 37.2 kg/m2 Dr. Cate Sapp MD Work Phone: [facility] 10-09-2024 13:35-0500 Body temperature 98.3 [degF] Dr. Cate Sapp MD Work Phone: [facility] 10-09-2024 13:35-0500 Body weight 114.[address] Cate Sapp MD Work Phone: [facility] 10-09-2024 13:35-0500 Diastolic blood pressure 60 mm[Hg] Dr. Cate Sapp MD Work Phone: [facility] 10-09-2024 13:35-0500 Heart rate 78 /min Dr. Cate Sapp MD Work Phone: [facility] 10-09-2024 13:35-0500 Respiratory rate 16 /min Dr. Cate Sapp MD Work Phone: [facility] 10-09-2024 13:35-0500 SaO2% (BldA) [Mass fraction] 97 % Dr. Cate Sapp MD Work Phone: [facility] 10-09-2024 13:35-0500 Systolic blood pressure 130 mm[Hg] Dr. Cate Sapp MD Work Phone: [facility] 06-30-2023 13:25-0400 Body height 175.[address] Cate Sapp Work Phone: [facility] 06-30-2023 13:25-0400 Body mass index (BMI) [Ratio] 37 kg/m2 Dr. Cate Sapp Work Phone: [facility] 06-30-2023 13:25-0400 Body temperature 97.9 [degF] Dr. Cate Sapp Work Phone: [facility] 06-30-2023 13:25-0400 Body weight 113.[address] Cate Sapp Work Phone: [facility] 06-30-2023 13:25-0400 Diastolic blood pressure 64 mm[Hg] Dr. Cate Sapp Work Phone: [facility] 06-30-2023 13:25-0400 Heart rate 81 /min Dr. Cate Sapp Work Phone: [facility] 06-30-2023 13:25-0400 Respiratory rate 16 /min Dr. Cate Sapp Work Phone: [facility] 06-30-2023 13:25-0400 SaO2% (BldA) [Mass fraction] 96 % Dr. Cate Sapp Work Phone: [facility] 06-30-2023 13:25-0400 Systolic blood pressure 150 mm[Hg] Dr. Cate Sapp Work Phone: [facility] 06-29-2022 13:23-0400 Body height 175.[address] Cate Sapp Work Phone: [facility] Work Phone: 06-29-2022 13:23-0400 Body mass index (BMI) [Ratio] 35.1 kg/m2 Dr. Cate Sapp Work Phone: [facility] Work Phone: 06-29-2022 13:23-0400 Body temperature 97.7 [degF] Dr. Cate Sapp Work Phone: [facility] Work Phone: 06-29-2022 13:23-0400 Body weight 107.[address] Cate Sapp Work Phone: [facility] Work Phone: 06-29-2022 13:23-0400 Diastolic blood pressure 72 mm[Hg] Dr. Cate Sapp Work Phone: [facility] Work Phone: 06-29-2022 13:23-0400 Heart rate 74 /min Dr. Cate Sapp Work Phone: [facility] Work Phone: 06-29-2022 13:23-0400 Respiratory rate 16 /min Dr. Cate Sapp Work Phone: [facility] Work Phone: 06-29-2022 13:23-0400 SaO2% (BldA) [Mass fraction] 98 % Dr. Cate Sapp Work Phone: [facility] Work Phone: 06-29-2022 13:23-0400 Systolic blood pressure 136 mm[Hg] Dr. Cate Sapp Work Phone: [facility] Work Phone: Encounters Encounter Date Encounter Type Care Provider Facility Start: 06-08-2025 End: 06-08-[address] Loyd Watters DO -[facility] Work Phone: Start: 06-08-2025 End: 06-08-[address] Cate Sapp MD Work Phone: -[facility] Start: 04-20-2025 End: 04-20-2025 ambulatory [facility] Facility:[facility] Start: 04-20-[address] Roosevelt Watters DO -Physical Therapy Work Phone: Start: 04-13-2025 End: 04-13-[address] Loyd Watters DO -[facility] Work Phone: Start: 04-13-2025 End: 04-13-2025 ambulatory [facility] Facility:[facility] Start: 04-12-2025 End: 04-12-[address] Bennett Butler MD -[facility] Start: 04-12-2025 End: 04-12-2025 [facility] Start: 04-09-2025 End: 04-09-[address] Cate Sapp MD -[facility] Start: 04-09-2025 End: 04-09-[address] Cate Sapp MD -[facility] Work Phone: Start: 04-09-2025 End: 04-09-[address] Cate Sapp MD Work Phone: [facility] Work Phone: Start: 04-09-2025 End: 04-09-2025 ambulatory [facility] Sapp Facility:[facility] Start: 04-06-[address] Roosevelt Watters DO -Physical Therapy Work Phone: Start: 03-19-2025 End: 03-19-[address] Loyd Watters DO -[facility] Work Phone: Start: 03-19-2025 End: 03-19-2025 ambulatory Cate Sapp Facility:[facility] Start: 03-13-2025 Encounter for other preprocedural examination [facility] Start: 03-06-2025 ambulatory Cate Sapp Facili ty:[facility] Start: 03-06-2025 Non-patient / [facility] Start: 03-06-2025 End: 03-06-2025 Admission to same day surgery center Dr. Loyd Watters DO -[facility] Start: 03-06-2025 End: 03-06-[address] Cate Sapp MD Work Phone: [facility] Work Phone: Start: 02-28-2025 End: 02-28-[address] Cate Sapp MD -[facility] Work Phone: Start: 02-28-2025 End: 02-28-2025 ambulatory Cate Kimuday Facility:[facility] Start: 02-27-2025 Encounter for other preprocedural examination [facility] Start: 02-23-2025 End: 02-23-2025 Patient encounter procedure Tenisha SOLITARIO -[facility] Work Phone: Start: 02-23-2025 End: 02-23-2025 ambulatory Tenisha Altamirano Facility:[facility] Start: 02-22-2025 End: 02-22-[address] Cate Sapp MD Work Phone: [facility] Work Phone: Start: 02-22-2025 End: 02-22-[address] Loyd Dugan [place] Work Phone: Start: 02-22-2025 End: 02-22-2025 ambulatory [facility] Facility:[facility] Start: 02-09-2025 End: 02-09-2025 Patient encounter procedure Tenisha SOLITARIO -[facility] Work Phone: Start: 02-09-2025 End: 02-09-2025 ambulatory Tenisha Altamirano Facility:[facility] Start: 02-05-2025 End: 02-05-[address] Cate Sapp MD Work Phone: [facility] Work Phone: Start: 02-05-2025 End: 02-05-[address] [facility] Start: 02-05-2025 End: 02-05-2025 ambulatory [facility] Facility:[facility] Start: 01-29-2025 End: 01-29-[address] Cate Sapp MD -[facility] Work Phone: Start: 01-29-2025 End: 01-29-[address] Cate Sapp MD [facility] Start: 01-29-2025 End: 01-29-[address] Cate Sapp MD Work Phone: [facility] Work Phone: Start: 01-29-2025 End: 01-29-2025 ambulatory [facility] Facility:[facility] Start: 01-24-2025 End: 01-24-[address] Loyd Watters DO -[facility] Work Phone: Start: 01-24-2025 End: 01-24-2025 ambulatory [facility] Start: 12-04-2024 End: 12-04-[address] [facility] Start: 12-04-2024 End: 12-04-[address] Loyd Watters DO -[facility] Work Phone: Start: 12-04-2024 End: 12-04-20[facility] Start: 12-04-2024 End: 12-04-2024 ambulatory [facility] Facility:[facility] Start: 10-09-2024 End: 10-09-[address] Cate Sapp MD -[facility] Work Phone: Start: 10-09-2024 End: 10-09-[address] Cate Sapp MD [facility] Start: 10-09-2024 End: 10-09-2024 ambulatory [facility] Facility:[facility] Start: 10-09-2024 End: 10-09-2024 ambulatory [facility] Facility:[facility] Start: 09-21-2023 End: 09-21-[address] Cate Sapp Work Phone: [facility] Work Phone: Start: 09-21-2023 End: 09-21-[address] Cate Sapp Work Phone: [facility]-Laboratory Work Phone: Start: 07-08-2023 Non-patient / Non-visit Dr. Mavis Sapp Work Phone: [facility] Start: 07-08-2023 End: 07-08-[address] Cate Sapp Work Phone: [facility] Work Phone: Start: 07-08-2023 End: 07-08-[address] Cate Sapp Work Phone: [facility]-Cardiov[facility]cul[facility] Services Work Phone: Start: 06-30-2023 End: 06-30-[address] Cate Sapp Work Phone: [facility] Work Phone: Start: 06-30-2023 End: 06-30-[address] Cate Sapp Work Phone: [facility]-Laboratory, [facility] Start: 06-30-2023 End: 06-30-[address] Cate Sapp Work Phone: [facility] Work Phone: Start: 06-29-2022 End: 06-29-[address] Cate Sapp Work Phone: [facility] Internal Medicine Start: 08-12-[address] Uday Sapp Work Phone: [facility] Start: 06-08-2017 End: 06-09-2017 Ambulatory [facility] Procedures Date Procedure Procedure Detail Performing Clinician Start: 04-12-2025 XR knee, [address] Mavis Sapp MD Work Phone: Start: 03-06-2025 X-ray of knee, one o r two views Dr. Cate Sapp MD Work Phone: Start: 03-06-2025 Total replacement of right knee joint Dr. Cate Sapp MD Work Phone: Start: 02-22-2025 Methicillin resistan t Staphylococcus aureus screening test Dr. Cate Sapp MD Work Phone: Start: 02-22-[address] Cate Sapp MD Work Phone: Comment on above: Published reference interval for apparently healthysubjects between age 20 and 60 is 205 - 285 umol/L and in apoorly controlled diabetic population is 228 - 563 umol/Lwith a mean of 396 umol/L.Performed at: [address] Director: Evan Rojo PhD, Phone: [phone] Start: 02-05-2025 MRI of lower extremity Dr. Cate Sapp MD Work Phone: Start: 12-04-2024 Plain X-ray of finger D deidra Sapp MD Work Phone: Start: 12-04-2024 X-ray of knee, four or more views Dr. Cate Sapp MD Work Phone: Start: 07-08-2023 Cardiovascular stres s test using pharmacologic stress agent Dr. Cate Sapp Work Phone: Plan of Treatment Date Care Activity Detail Author Start: 04-09-2025 Basic metabolic 2008 panel with ionized calcium - Serum or Plasma [facility] Start: 04-09-2025 Urate [Mass/volume] in Serum or Plasma [facility] Start: 03-19-2025 Patient referral [facility] Work Phone: Start: 03-06-2025 Anesth open/surg arthrs total knee arthroplasty ANESTH KNEE ARTHROPLASTY [facility] Start: 03-06-2025 Arthrp kne condyle&platu medial&lat compartments TOTAL KNEE ARTHROPLASTY [facility] Start: 03-06-2025 Injection aa&/strd femoral nerve cont nfs cath NJX AA&/STRD FEM NRV NFS IMG [facility] Start: 03-06-2025 Application of ice collar, cap or bag [facility] Start: 03-06-2025 Exercises [facility] Start: 03-06-2025 Incentive spirometry [facility] Start: 03-06-2025 Neurovascular assessment [facility] Start: 03-06-2025 Patient discharge [facility] Start: 03-06-2025 Patient education [facility] Start: 03-06-2025 Provision of activity privileges [facility] Start: 03-06-2025 Recommendation to continue with treatment [facility] Start: 03-06-2025 Referral to service [facility] Start: 03-06-2025 Vital signs measurements [facility] Start: 03-06-2025 Wound care [facility] Start: 03-06-2025 [facility] Start: 01-29-2025 Evaluation of diagnostic study results [facility] Start: 06-30-2023 Evaluation of diagnostic study results [facility] Anion gap in Serum o r Plasma [facility] BUN/Creatinine ratio [facility] Calcium [Mass/volume ] in Serum or Plasma [facility] Carbon dioxide, tota l [Moles/volume] in Central venous blood [facility] Creatinine [Mass/vol ume] in Serum or Plasma [facility] Glucose [Mass/volume ] in Serum or Plasma [facility] Measurement of renal function [facility] NM Heart Views W str ess and W radionuclide IV [facility] Patient referral [facility] Work Phone: Potassium measurement [facility] Serum chloride measurement [facility] Sodium measurement [facility] Urate [Mass/volume] in Serum or Plasma [facility] Urea nitrogen [Mass/volume] in Serum or Plasma [facility] Immunizations Immunization Date Immunization Notes [facility] 10-09-2024 Seasonal trivalent influenza vaccine, adjuvanted, preservative free Dr. Cate Sapp MD Work Phone: [facility] 10-09-2024 tetanus toxoid, redu karrie diphtheria toxoid, and acellular pertussis vaccine, adsorbed Dr. Cate Sapp MD Work Phone: [facility] 10-07-2023 influenza, injectabl e, quadrivalent, preservative free Dr. Cate Sapp MD Work Phone: [facility] 10-01-2022 influenza, injectabl e, quadrivalent, preservative free Dr. Cate Sapp Work Phone: [facility] 10-01-2022 influenza, seasonal, injectable Dr. Cate Sapp Work Phone: [facility] 08-12-2021 pneumococcal conjuga te vaccine, [address] Cate Sapp Work Phone: [facility] 02-17-2021 Covid (Moderna) Dr. Aris Sapp Work Phone: [facility] 01-20-2021 Covid (Moderna) Dr. Aris Sapp Work Phone: [facility] 08-14-2020 influenza, injectabl e, quadrivalent, preservative free Dr. Cate Sapp Work Phone: [facility] 08-14-2020 influenza, seasonal, injectable Dr. Cate Sapp Work Phone: [facility] 08-01-2019 pneumococcal polysaccharide vaccine, [address] Cate Sapp Work Phone: [facility] Payers Date Payer Category Payer Self-pay [id number] 2024 Unknown [id number] 2010 [id number] Medicare [id number] Unknown [id number] Unknown [id number] 2.16.8 [id number] Unknown [id number] 2.16.8 [id number] Unknown [id number] 2.16.8 40.1.820853.3.579.2.462 Unknown [id number] 2.16.8 40.1.681585.3.579.2.462 Unknown [id number] 2.16.8 40.1.472747.3.579.2.462 Unknown [id number] 2.16.8 40.1.170535.3.579.2.462 Unknown [id number] 2.16.8 40.1.307098.3.579.2.462 Unknown [id number] 2.16.8 40.1.066999.3.579.2.462 Unknown [id number] 2.16.8 40.1.022065.3.579.2.462 Unknown [id number] 2.16.8 40.1.091111.3.579.2.462 Unknown [id number] 2.16.8 40.1.337137.3.579.2.462 Unknown [id number] 2.16.8 40.1.743245.3.579.2.462 Unknown [id number] 2.16.8 40.1.003581.3.579.2.462 Unknown [id number] 2.16.8 40.1.361734.3.579.2.462 Unknown [id number] 2.16.8 40.1.846319.3.579.2.462 Unknown [id number] 2.16.8 40.1.397582.3.579.2.462 Unknown [id number] 2.16.8 40.1.530898.3.579.2.462 Unknown [id number] 2.16.8 40.1.136923.3.579.2.462 Unknown [id number] 2.16.8 40.1.326115.3.579.2.462 Unknown [id number] 2.16.8 40.1.410406.3.579.2.462 Unknown [id number] 2.16.8 40.1.646336.3.579.2.462 Unknown [id number] 2.16.8 40.1.621231.3.579.2.462 Social History Date Type Detail Facility Start: 06-29-2022 End: 06-30-2023 Tobacco smoking status NHIS Unknown if ever smoked [facility] Start: 1950 Sex Assigned At Male [facility] Start: 02-06-2025 Tobacco smoking stat us NHIS Never smoked tobacco (finding) [facility] Start: 02-06-2025 End: 03-07-2025 Sex Male (finding) [facility] Sex Male [facility] Medical Equipment Procedure Code Equipment Code Equipment Origin al Text Equipment Identifier Dates Orthopaedic ceme nt, non-antimicrobial [id number] FDA Start: 03-06-2025 ([id number]) Coated knee femu r prosthesis ()[id number] FDA Start: 03-06-2025 ([id number]) Uncoated knee ti les prosthesis, metallic ()[id number] FDA Start: 03-06-2025 ([id number]) Polyethylene pat hina prosthesis ()[id number] FDA Start: 03-06-2025 ([id number]) Tibial insert ()[id number] FDA Start: 03-06-2025 Goals Date Patient Goal Desired Activity /State Mental Status Date Assessment Result Facility 03-06-2025 Cognitive function Level Of Consciousness Awake [facility] Work Phone: 03-06-2025 Cognitive function Voice/Name [facility] Work Phone: Clinical Notes 10-09-2024 to 06-08-2025 Note Date & Type Note Facility 06-08-2025 Evaluation note Diagnosis Onset Date Resolution Left knee DJD acute June 08, 2025 10:50am [facility] Work Phone: 1(577) 911-479004-16-2025 Radiology Diagnostic study note [facility] Services [address] [place] [address] Knee 1 or 2 Views MR#: [id number] Acct: [id number] Name: ANTONI GOLDSMITH Rep #: [id number] : [id number] M 74 From: Yang Gray MD PCP: Dr. Cate Sapp MD Status: R [facility] Study:Knee 1 or 2 Views Date of Exam: Exam# [id number] Ordering Dr: Loyd Watters DO PROCEDURE: KNEE 1 OR 2 VIEWS 03/06/2025 REASON FOR EXAM: POSTOP PACU TECHNIQUE: 2 view(s) of the right knee FINDINGS: Status post right knee replacement with patellar resurfacing appears intact and anatomic. No fracture or dislocation. Soft tissue and intra-articular air with overlying skin elvin. Enthesopathic change at the anterior tuberosity and patella. RAD/Knee 1 or 2 Views IMPRESSION: Status post right knee replacement with patellar resurfacing appears intact and anatomic. Reading Location: [facility] CC: Dr. Cate Sapp MD; Dr. 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 [facility]04-15-2025 Consult note Author [facility] Note Date/Time March 06, 2025 4:2 4pm [facility] Medical Records Department [address] [place] [address] Anesthesia Postop Eval II 03/06/25 1623 MR#: [id number] Acct: [id number] Name: ANTONI GOLDSMITH Rep #:[id number] : 1950 74 From: Brannon Monsalve MD PCP: Dr. Cate Sapp MD Status:Sean [facility] Y Race: C Location: [place] [address] Anesthesia Postop Eval I Sum Postop Eval Completion status Anesthesia document: Postop Eval 1 completed: Yes Anesthesia Postop Eval I Summary Anesthesia Postop Eval I Summary: Anesthesia Postop Eval I: Assessment Summary Airway patent Yes 03/06/25 12:27 PUBLIC SAFETY [email or web address] Spontaneous unlabored Yes 03/06/25 12:27 PUBLIC SAFETY [email or web address] respirations Mental status Awake,Calm 03/06/25 12:27 PUBLIC SAFETY [email or web address] nausea No 03/06/25 12:27 PUBLIC SAFETY [email or web address].[email or web address] Vomiting No 03/06/25 12:27 PUBLIC SAFETY [email or web address] Anesthesia Postop Eval I: Fluid Summary Crystalloid volume administer 1,500 03/06/25 12:27 PUBLIC SAFETY [email or web address] (ml) Colloids volume administered ( ml) Blood Product volume administered (ml) Total IV fluid infused 1,500 03/06/25 12:27 PUBLIC SAFETY [email or web address].[email or web address] Anesthesia Postop Eval I: Summary Notes Anesthesia Complication No 03/06/25 12:27 PUBLIC SAFETY [email or web address].[email or web address] Anesthesia Complication Comment: Post-operative progress note Anesthesia: Postop Eval II Evaluation Mental status: Awake and Calm Pain Level: 2 nausea: No Vomiting: No Complications Anesthesia Complication: No 03/06/25 1624 <Electronically signed by Brannon taylor MD> Date _ Brannon Monsalve MD Cosigner Signature: Date CC: ~ Signed [facility] Work Phone: 1(513) 220-124104-15-2025 Consult note [facility] Medical Records Department [address] [place] [address] Anesthesia Postop Eval II 03/06/25 1623 MR#: [id number] Acct: [id number] Name: ANTONI GOLDSMITH RAUL Rep #:[id number] : 1950 74 From: Brannon Monsalve MD PCP: Dr. Cate Sapp MD Status:R MARSHA [facility] Y Race: C Location: [address] Anesthesia Postop Eval I Sum Postop Eval Completion status Anesthesia document: Postop Eval 1 completed: Yes Anesthesia Postop Eval I Summary Anesthesia Postop Eval I Summary: Anesthesia Postop Eval I: Assessment Summary Airway patent Yes 03/06/25 12:27 PUBLIC SAFETY [email or web address] Spontaneous unlabored Yes 03/06/25 12:27 PUBLIC SAFETY [email or web address] respirations Mental status Awake,Calm 03/06/25 12:27 PUBLIC SAFETY [email or web address] nausea No 03/06/25 12:27 PUBLIC SAFETY TELECOMMUNICATOR.[email or web address] Vomiting No 03/06/25 12:27 PUBLIC SAFETY [email or web address].[email or web address] Anesthesia Postop Eval I: Fluid Summary Crystalloid volume administer 1,500 03/06/25 12:27 PUBLIC SAFETY [email or web address].[email or web address] (ml) Colloids volume administered ( ml) Blood Product volume administered (ml) Total IV fluid infused 1,500 03/06/25 12:27 PUBLIC SAFETY [email or web address].[email or web address] Anesthesia Postop Eval I: Summary Notes Anesthesia Complication No 03/06/25 12:27 PUBLIC SAFETY [email or web address].[email or web address] Anesthesia Complication Comment: Post-operative progress note Anesthesia: Postop Eval II Evaluation Mental status: Awake and Calm Pain Level: 2 nausea: No Vomiting: No Complications Anesthesia Complication: No 03/06/25 1624 claudia MOORE> Date _ Brannon Monsalve MD Cosigner Signature: Date CC: ~ Signed [facility]04-15-2025 Consult note Author Onofre Medellin [facility] Note Date/Time March 06, 2025 12: 27pm [facility] Medical Records Department [address] [place] [address] Anesthesia Postop Eval I 03/06/25 1227 MR#: [id number] Acct: [id number] Name: ANTONI GOLDSMITH Rep #:[id number] : 1950 74 From: Onofre CORONA PCP: Dr. Cate Sapp MD Status:R MARSHA [facility] Y Race: C Location: [place] [address] Anesthesia: Postop Eval I Current Vital Signs Temperature: 98 F Pulse Rate: 89 Blood Pressure: 132/59 Respiratory Rate: 14 Pulse Ox: 98 Oxygen Delivery Method: Room Air Assessment Airway patent: Yes Spontaneous unlabored respirations: Yes Mental status: Awake and Calm nausea: No Vomiting: No Anesthesia Complication: No Fluid Hydration Crystalloid volume administer (ml): 1,500 Total IV fluid infused: 1,500 Progress Note Anesthesia document: Postop Eval 1 completed: Yes 03/06/25 1227 <Electronically signed by Onofre Medellin CRNA> Date _ Onofre Medellin CRNA Cosigner Signature: Date CC: ~ Signed [facility] Work Phone: [phone]) 105-752504-15-2025 Discharge summary Author [facility] Note Date/Time March 06, 2025 10: 50am [facility] Medical Records Department [address] [place] [address] Instructions for Home/Discharge Instructions 03/06/25 1045 MR#: [id number] Acct: [id number] Name: ANTONI GOLDSMITH Rep #:[id number] : 1950 74 From: Loyd Dankaleb ROSALES PCP: Dr. Cate Sapp MD Status:R [facility] Discharge Instructions Diet Discharge Diet: No restrictions (Gout dietary precautions) Activity Weight Bearing Status: Full weight bearing Keep extremity elevated above heart level: Operative Extremity Dressing / Incision Call your doctor if you observe: Shortness of breath and Chest pain Additional Dressing/Incision Instructions:: Ice and elevate lower extremities 2 weeks while not ambulating. Ambulation is encouraged. Weight bearing as tolerated. Use assistive devise for stability. Encourage FULL knee extension and flexion 1 time EVERY time you get up and down and MULTIPLE times per day. No showering until 72 hours after surgery. May begin showering postop day #3. Remove the dressing prior to shower and gently wash with warm water and antibacterial soap then pat dry and place abdominal pad (or plain gauze) and TEDhose over top. If you decide not to begin showering 72 hrs post operatively and wish to sponge bath only, then you may leave dressing undisturbed for up to 1 week, but must remove prior to first shower. Do not submerge for 3 weeks. If not showering daily after the initial dressing is removed you must clean incision and change dressing daily after the dressing comes off, must come off by 7 days postop. Do not allow animals near the incision area. Keep clean. Follow anti-coagulation recommendations as prescribed. Do not take any NSAIDs while on blood thinner. Do not take any additional narcotic pain medication other than what was prescribed on your surgery day without discussing with physician. Narcotic medication can be addictive. Do not drink alcohol while taking narcotics. Supplement narcotic prescription with acetaminophen 1000 mg 4 times a day. Start physical therapy. If you are not currently scheduled for physical therapy or you are unsure of appointment time please call office [facility] to arrange. Call Dr. Watters's office ) with any concerns. Follow Up Care Please Follow Up With: Loyd Watters DO When: 2 weeks Test Results: Test results from this visit will be discussed in further detail at your follow- up appointment, if applicable. Discharge Plan Admission Primary Reason for Your Visit: Right total knee arthroplasty Attending Provider: Loyd Watters Primary Care Provider: Cate Sapp Instructions Print Language: Burmese Discharge Orders/Prescriptions Prescriptions: New acetaminophen 500 mg tablet 1,000 mg PO Q6H Qty: 100 0RF cephalexin 500 mg capsule 1,000 mg PO Q8H Qty: 4 0RF Rx Instructions: Take 2 tabs before you go to bed and 2 tabs after 5 AM morning after surgery when you wake up Eliquis 2.5 mg tablet 2.5 mg PO BID Qty: 28 0RF Rx Instructions: Begin morning after surgery. oxycodone 5 mg tablet 5 - 10 mg PO Q4H PRN (Reason: pain) 7 Days Qty: 60 0RF Continued lisinopril-hydrochlorothiazide 20-12.5 mg tablet 2 tab PO DAILY Qty: 180 3RF doxazosin 4 mg tablet 4 mg PO BID 90 Days Qty: 180 3RF allopurinol 100 mg tablet 100 mg PO QDAY Qty: 30 1RF amlodipine 10 mg tablet 10 mg PO QHS Qty: 90 1RF Held meloxicam 15 mg tablet 15 mg PO DAILY PRN (Reason: pain) Hold Instructions: May resume after completion of blood thinner Referrals / Follow Up: Cate Sapp MD [Primary Care Provider] - Disposition Disposition (needs filled in before D/C Order can be placed): Home, Self Care 03/06/25 1050<Electronically signed by Loyd Watters DO>Loyd Dankaleb ROSALES CC: Dr. Cate Sapp MD ~ Signed [facility] Work Phone: 1(604) 478-996504-15-2025 Consult note [facility] Medical Records Department [address] [place] [address] Anesthesia Postop Eval I 03/06/25 1227 MR#: [id number] Acct: [id number] Name: ANTONI GOLDSMITH Rep #:[id number] : 1950 74 From: Onofre CORONA PCP: Dr. Cate Sapp MD Status:R EG [facility] Y Race: C Location: [place] [address] Anesthesia: Postop Eval I Current Vital Signs Temperature: 98 F Pulse Rate: 89 Blood Pressure: 132/59 Respiratory Rate: 14 Pulse Ox: 98 Oxygen Delivery Method: Room Air Assessment Airway patent: Yes Spontaneous unlabored respirations: Yes Mental status: Awake and Calm nausea: No Vomiting: No Anesthesia Complication: No Fluid Hydration Crystalloid volume administer (ml): 1,500 Total IV fluid infused: 1,500 Progress Note Anesthesia document: Postop Eval 1 completed: Yes 03/06/25 1227 PUBLIC SAFETY TELECOMMUNICATOR> Date _ Onofre Medellin PUBLIC SAFETY TELECOMMUNICATOR Cosigner Signature: Date CC: ~ Signed [facility]04-15-2025 Discharge summary [facility] Medical Records Department [address] [place] [address] Instructions for Home/Discharge Instructions 03/06/25 1045 MR#: [id number] Acct: [id number] Name: ANTONI GOLDSMITH Rep #:[id number] : 1950 74 From: Loyd Watters DO PCP: Dr. Cate Sapp MD Status:R [facility] Discharge Instructions Diet Discharge Diet: No restrictions (Gout dietary precautions) Activity Weight Bearing Status: Full weight bearing Keep extremity elevated above heart level: Operative Extremity Dressing / Incision Call your doctor if you observe: Shortness of breath and Chest pain Additional Dressing/Incision Instructions:: Ice and elevate lower extremities 2 weeks while not ambulating. Ambulation is encouraged. Weight bearing as tolerated. Use assistive devise for stability. Encourage FULL knee extension and flexion 1 time EVERY time you get up and down and MULTIPLE times per day. No showering until 72 hours after surgery. May begin showering postop day #3. Remove the dressing prior to shower and gently wash with warm water and antibacterial soap then pat dry and place abdominal pad (or plain gauze) and TEDhose over top. If you decide not to begin showering 72 hrs post operatively and wish to sponge bath only, then youmay leave dressing undisturbed for up to 1 week, but must remove prior to first shower. Do not submerge for 3 weeks. If not showering daily after the initial dressing is removed you must clean incision and change dressing daily after the dressing comes off, must come off by 7 days postop. Do not allow animals near the incision area. Keep clean. Follow anti-coagulation recommendations as prescribed. Do not take any NSAIDs while on blood thinner. Do not take any additional narcotic pain medication other than what was prescribed on your surgery day without discussing with physician. Narcotic medication can be addictive. Do not drink alcohol while taking narcotics. Supplement narcotic prescription with acetaminophen 1000 mg 4 times a day. Start physical therapy. If you are not currently scheduled for physical therapy or you are unsure of appointment time please call office [facility] to arrange. Call Dr. Watters's office ) with any concerns. Follow Up Care Please Follow Up With: Loyd Watters DO When: 2 weeks Test Results: Test results from this visit will be discussed in further detail at your follow- up appointment, if applicable. Discharge Plan Admission Primary Reason for Your Visit: Right total knee arthroplasty Attending Provider: Loyd Watters Primary Care Provider: Cate Sapp Instructions Print Language: Burmese Discharge Orders/Prescriptions Prescriptions: New acetaminophen 500 mg tablet 1,000 mg PO Q6H Qty: 100 0RF cephalexin 500 mg capsule 1,000 mg PO Q8H Qty: 4 0RF Rx Instructions: Take 2 tabs before you go to bed and 2 tabs after 5 AM morning after surgery when you wake up Eliquis 2.5 mg tablet 2.5 mg PO BID Qty: 28 0RF Rx Instructions: Begin morning after surgery. oxycodone 5 mg tablet 5 - 10 mg PO Q4H PRN (Reason: pain) 7 Days Qty: 60 0RF Continued lisinopril-hydrochlorothiazide 20-12.5 mg tablet 2 tab PO DAILY Qty: 180 3RF doxazosin 4 mg tablet 4 mg PO BID 90 Days Qty: 180 3RF allopurinol 100 mg tablet 100 mg PO QDAY Qty: 30 1RF amlodipine 10 mg tablet 10 mg PO QHS Qty: 90 1RF Held meloxicam 15 mg tablet 15 mg PO DAILY PRN (Reason: pain) Hold Instructions: May resume after completion of blood thinner Referrals / Follow Up: Cate Sapp MD [Primary Care Provider] - Disposition Disposition (needs filled in before D/C Order can be placed): Home, Self Care 03/06/25 1050Josecarlos Watters DO CC: Dr. Cate Sapp MD ~ Signed [facility]04-15-2025 Procedure note [facility] Medical Records Department [address] [place] [address] Operative Report 03/06/25 1041 MR#: [id number] Acct: [id number] Name: ANTONI GOLDSMITH Rep #:[id number] : 1950 74 From: Loyd Watters DO PCP: Dr. Cate Sapp MD Status:[facility] Location: [place] [address] Operative Report (Standard) Operative Information Date of Procedure: 03/06/25 Pre-Operative Diagnosis: Right knee DJD Post-Operative Diagnosis: Same Surgery/Procedure Performed: Right total knee arthroplasty department clinician: Yes Spiritual Minister: Juan Manuel Hoffman Tasks completed by first officer and flight instructor: Opening & closing Type of Anesthesia: Spinal RN Documented Start/Stop Times: Operation Date: 03/06/25 08:00 Case Time Into Pre-Op 03/06/25 06:07 Anesthesia Start 03/06/25 08:12 Into Room 03/06/25 08:12 Out of Pre-Op 03/06/25 08:12 Procedure Start 03/06/25 08:33 Procedure End 03/06/25 10:38 Anesthesia End 03/06/25 10:46 Out of Room 03/06/25 10:46 Procedure Start Time: 08:33 Procedure Stop Time: 10:38 Select all DRAINS/GRAFTS/IMPLANTS that apply: Prosthetic device Prosthetic device details: [place] triathlon hybrid press-fit femur cemented tibia and patella Estimated Blood Loss: 125 Specimen collected: Yes Description of specimen(s) removed: Bone Description of surgery: Preoperative diagnosis: 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 My physician digital marketing assistant was a vital part of this case. He was important in appropriate retraction during the case, and protection of soft tissues during procedure. His intimateknowledge of the case and my steps aided in safe and expedient completion of the procedure as well as appropriate position of the extremity during the case. He was also vital in assisting with closure under my direct supervision. Indication for procedure: This is a 74-year-old male with long standing degenerative joint disease and gout of the knee who has failed conservative treatment and wished to proceed with elective totalknee arthroplasty. Risk benefits and alternatives were reviewed including; risk of bleeding, infection, nerve artery and tissue damage, continued pain, postoperative stiffness, venous thromboembolism, need for postoperative rehabilitation, mechanical feel to the knee, and expected postoperative course. The pre- operative CT and templating was performed with component sizing. Procedure: The patient was met in the preoperative holding area. The operative extremity was identified by both patient and physician and was marked. Patient was met by anesthesia. An adductor canal block was placed by anesthesia postoperatively the patient was brought back to the operating room master wheeled cart and transferred to the operating table in the supine position. Anesthesia was started. A well-padded tourniquet was placed on the operative extremity. The patient was prepped and draped in the usual sterile fashion. A timeout was called to ensure the proper patient procedure and extremity were being contemplated. An esmarch was used to exsanguinate the extremity. The tourniquet wasinflated. A 10 blade scalpel was used to make a midline incisiondown through the skin and subcutaneous tissue. Skin retractors placed. Bovie and Aquamantis were used to perform meticulous hemostasis.full-thickness flapswere elevated medial and lateral along the joint capsule. A deep blade scalpel was used to perform a medial parapatellar arthrotomy. The knee was brought to full extension. A bovie was used to release the soft tissues off the most proximal aspect of the medial tibial plateau, a three-quarter inch curved osteotome was also used in this process. The infrapatellar fat pad was excised. The suprapatellar fat pad was excised partially anteriorolateraly and portion the anterioromedial pad was elevated from the femur. At this point our intra- articular femoral array was placed at a45 degree angle proximal and posterior to the medial epicondyle. femoral checkpoint was placed at this time. Our tibial array was placed partially intra incisional 1 stab incision was made for the inf erior pin with a 15 blade scaple, and pins were placed and attached to the tibial array , tibial checkpoint was placed in the proximal tibial metaphysis. Tourniquet was let down. At this point registration catalan were taken throughout the knee . Once the knee was registered we then tensioned the medial and lateral ligaments in extension and 90 degrees of flexion. We then used these numbers to adjust our components within parameters to balance the knee in both flexion and extension once this was done on our monitor we then proceeded with using the robotic arm to make our tibial plateau cut, anterior and posterior chamfer and distal femur cuts. we removed the cut fragments with the use of a bovie and Daisy, we did use a lamina hr associate to insure we visualized and removed all posterior osteophytes and at this time also used the Aquamantis on the posterior joint capsule. we then trialed andachieved the desired plan with a well-balanced knee. we used the green probe to mitchell the corresponding tibial rotation based on our CT template. Lug holes were drilledin the femur the tibia preparation was completed with the appropriate sized baseplate pinned based on previous rotation mitchell. An appropriate sized fin punch was used on the tibia , there was a cyst in the proximal medial tibial plateau which was curetted. the patella was prepared by first using a caliper to ensure sufficient bone stock and a patellar reamer to remove the desired amount of bone. lug holes drilled for an asymmetric poly. We then brought the knee through range of motion with excellent patellar tracking. We thoroughly irrigated the knee. Trial components were removed a posterior capsular injection was preformed with our standard cocktail. In addition the aqua Mantis was also used to aid in hemostasis. Betadinerinse was allowed to sit and washed out completely. Components were cemented in place on the tibia excess cement was removed with a Searcy elevator the femoral component was press-fit andthe patellar component was also cemented and clamped we did hold the knee in extension until cemented hardened wedid allow a Betadine rinse to sit for 5 minutes during this.. Aricept rinse was then used followed by several more liters of irrigation after it was allowed to sit. The joint capsule was closed with #1 Ethibond [id number] in the upper part of the arthrotomy and #1 Vicryl in the lower part ofthe arthrotomy. , Followed by 2-0 Vicryl in the subcutaneous tissues with elvin in the skin. Arrays and checkpoints were removed prior to closure all counts were correct stab incisions were closed witha staple standard dressing in the form of Mepilex AG for the main incision and asmall Mepilex over the pin holes. Thigh-high VANESSA hose applied over top of dressing. Patient tolerated the procedure well and was directed to PACU in stable condition . There were no intraoperative complications. Surgical Findings: DJD varus deformity flexion contracture Complications Complications: No 03/06/25 1050 Cosigner Signature (if applicable): CC: Dr. Cate Sapp MD; Dr. Loyd Watters, DO~ Signed [facility]04-15-2025 Consult note Author Onofre Bradley [facility] Note Date/Time March 06, 2025 7:4 1am [facility] Medical Records Department [address] [place] [address] Pre-Anesthesia Evaluation 03/06/25 0738 MR#: [id number] Acct: [id number] Name: ANTONI GOLDSMITH Rep #:[id number] : 1950 74 From: Onofre King PCP: Dr. Cate Sapp MD Status:R EG [facility] Y Race: C Location: [place] [address] ASA Classification* ASA Classification ASA Classification: 2 (HTN) Assessment & Plan Anesthesia* Anesthesia Assessment Anesthesia Assessment: Discussed sedation and/or anesthesia options, risks, benefits, and alternatives with patient/parents/legal guardian/POA. Questions invited. The patient/parents/legal guardian/POA seems to understand and agrees to proceedwith anesthesia plan. Reviewed the physical assessment, medical history, allergy history and patient home medications list prior to surgery/procedure/anesthetic and documented any changes. Performed airway and anesthesia risk assessments. Anesthesia Type Anesthesia Type: Spinal and Block History Source History Obtained from:: Patient Anesthesia Focused Assessment* Oxygen Delivery Method: Room Air Airway Assessment Mouth opens: 2 cm Mallampati Score: II Teeth Condition: Intact Neck Range of motion (ROM): Full ROM Focused Labs Anesthesia Preop lab: CBC WBC 8.4 K/mm3 (4.4-11.0) 01/29/25 14:55 01/29/25 RBC 4.37 M/mm3 (4.6-6.2) L 01/29/25 14:55 01/29/25 Hgb 13.1 g/dL (13.0-16.5) 01/29/25 14:55 01/29/25 Hct 39.3 % (40-54) L 01/29/25 14:55 01/29/25 Plt Count 477 K/mm3 (150-450) H 01/29/25 14:55 01/29/25 CHEMISTRY Potassium 4.1 mmol/L (3.3-5.1) 01/29/25 14:55 01/29/25 Sodium 138 mmol/L (133-145) 01/29/25 14:55 01/29/25 Magnesium 2.0 mg/dL (1.5-2.2) 02/22/25 11:49 02/22/25 BUN 17 mg/dL (4-19) 01/29/25 14:55 01/29/25 Creatinine 1.10 mg/dL (0.70-1.20) 01/29/25 14:55 01/29/25 Glucose 103 mg/dL (70-99) H 01/29/25 14:55 01/29/25 POC Glucose 166 mg/dL (74-106) H 03/06/25 06:32 03/06/25 COAG PT 14.3 SECONDS (11.7-14.9) 02/22/25 11:50 Pre-Assessment Diagnosis/Proposed Procedure Planned Operative Procedure(s): RIGHT TOTAL KNEE ARTHROPLASTY Anesthesia History 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 When Was Last Pacemaker Check QUESTION #4 FULL TEXT: You/Your Family Experience fever (hyperthermia) with Anesthesia Any additional information?: No Last Oral Intake Last Oral intake: Last Oral Intake NPO since 05:30 03/06/25 06:35 Meds taken in AM with sips of Yes 03/06/25 06:35 water? Meds patient instructed to allpopurinol 03/06/25 06:35 take am of surgery doxazosin Any additional information?: No PONV PONV - customer service attendant: PONV - customer service attendant Female No 02/06/25 15:11 HX of Motion Sickness No 02/06/25 15:11 HX of N/V After Surgery No 02/06/25 15:11 Non-Smoker Yes 02/06/25 15:11 Duration of Surgery greater Yes 02/06/25 15:11 than 60 minutes Number of Risk Factors 2 02/06/25 15:11 PONV Score Moderate Risk 02/06/25 15:11 Any additional information?: No Height & Weight Height & Weight: Anesthesia: Height & Weight Height 5 ft 9 in 03/06/25 06:35 Weight: 100.244 kg 03/06/25 06:35 Body Mass Index (BMI) 32.6 03/06/25 06:35 Respiratory Assessment Respiratory Assessment - customer service attendant: Respiratory Tract Infection Hx - customer service attendant Hx Respiratory Tract Infection No 02/06/25 15:11 Any additional information?: No STOP Sleep Apnea STOP Sleep Apnea - customer service attendant: STOP Sleep Apnea - customer service attendant Hx Hypertension Yes: CONTROLLED WITH MED 02/06/25 15:11 Hx Sleep Apnea No 02/06/25 15:11 CPAP BIPAP Do you snore loudly (louder Yes 02/06/25 15:11 than talking or can be heard Do you often feel tired/ No 02/06/25 15:11 fatigued/ sleepy during daytime? Has anyone observed you stop No 02/06/25 15:11 breathing during sleep? STOP Results Positive 02/06/25 15:11 QUESTION #5 FULL TEXT : Do you snore loudly (louder than talking or can be heard through closed doors)? Any additional information?: No Tobacco Use History Tobacco Use History - customer service attendant: Tobacco Use History - customer service attendant Tobacco Use Smoking Status Never smoker 02/06/25 15:11 Hx Tobacco Use No 02/06/25 15:11 Years Smoking Packs Smoked per Day Smoking Cessation Date was within the last 15 years Hx Smoking Cessation Date Hx Smoking Cessation Counseling Any additional information?: No Hematologic Medial History Hematologic Hx - customer service attendant: Hematologic Medical Hx - chain tender Hx of Blood Transfusion No 02/06/25 15:11 Hx of Transfusion in last 3 No 02/06/25 15:11 Months Date of Last Transfusion (if within last 3 months) Ever experience any problems No 02/06/25 15:11 with transfusion(s)? Specify any problems Hx of Preganancy in last 3 N/A 02/06/25 15:11 Months Nurse Filling Out Transfusion DSCHRIBER 02/06/25 15:11 & Questions: Date: 02/06/25 02/06/25 15:11 Time: 15:14 02/06/25 15:11 Patient unable to answer at this time (ie. 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 Hx Now No 02/06/25 15:11 Gestational Age (in weeks): EDC: Hx Hx Para Hx Section SAB No 02/06/25 15:11 Any additional information?: No Active Medications Active Medications: Current Medications Generic Name Dose Route Start Last Admin Trade Name Freq PRN Reason Stop Dose Admin Acetaminophen 1,000 mg 03/06/25 11:00 03/06/25 06:48 Acetaminophen 500 Mg Tablet PO 03/06/25 11:01 1,000 mg X1 ONE Administration Celecoxib 400 mg 03/06/25 11:00 03/06/25 06:49 Celecoxib 200 Mg Capsule PO 03/06/25 11:01 400 mg X1 ONE Administration Dexamethasone Sodium Phosphate 10 mg 03/06/25 11:00 Dexamethasone 10 Mg/Ml Vial IV 03/06/25 11:01 X1 ONE Gabapentin 600 mg 03/06/25 11:00 03/06/25 06:48 Gabapentin 600 Mg Tablet PO 03/06/25 11:01 600 mg X1 ONE Administration Cefazolin Sodium 2 gm/ N/A 20 mls @ 400 mls/hr 03/06/25 11:00 IV 03/06/25 11:02 PREOP ONE Tranexamic Acid 1,000 mg/ 110 mls @ 660 mls/hr 03/06/25 11:00 Sodium Chloride IV 03/06/25 11:09 X1 ONE Tranexamic Acid 1,000 mg/ 110 mls @ 660 mls/hr 03/06/25 11:00 Sodium Chloride IV 03/06/25 11:09 X1 ONE Lactated Ringer's 1,000 mls @ 125 mls/hr 03/06/25 11:00 IV 03/06/25 18:59 .Q8H ZORAIDA Magnesium Sulfate 1 gm/ 102 mls @ 408 mls/hr 03/06/25 11:00 03/06/25 06:55 Dextrose IV 03/06/25 11:14 408 mls/hr X1 ONE Administration Sodium Chloride 1,000 mls @ 15 mls/hr 03/06/25 06:10 03/06/25 06:54 IV 15 mls/hr .Q48H ZORAIDA Administration Insulin Human Lispro 1 - 6 unit 03/06/25 11:00 Insulin Lispro 100 Unit/Ml Insuln.Pen SC 03/06/25 18:00 Q4H PRN PRN BG>/= 180, SEE PROTOCOL Protocol Scopolamine HBr 1 patch 03/06/25 11:00 03/06/25 06:49 Scopolamine 1mg/72hr Patch TD 03/06/25 11:01 1 patch X1 ONE Administration [facility] Medical History (Updated 02/28/25 @ 15:[address] Cate Sapp MD) Bilateral foot pain Loss of hearing Wears glasses Alcohol use History of steroid therapy Arthritis Gout High cholesterol Injury of head and neck History of ulceration Heartburn Non-smoker History of pain when walking History of edema History of stress test Elevated PSA BPH (benign prostatic hyperplasia) Bilateral primary osteoarthritis of knee ESTRELLA (acute kidney injury) benign growth on prostate History of squamous cell carcinoma History of basal cell carcinoma History of kidney stones Hypertension Arthritis Seasonal allergies Home Medications ?Medication ?Instructions ?Recorded ?Last Taken ?Type lisinopril 20 2 tab PO DAILY #180 tabs 03/05/25 Rx mg-hydrochlorothiazide 12.5 mg tablet doxazosin 4 mg tablet 4 mg PO BID 3 months #180 ta bs 09/04/24 03/06/25 Rx allopurinol 100 mg tablet 100 mg PO QDAY #30 tabs 01/2003/06/25 Rx amlodipine 10 mg tablet 10 mg PO QHS #90 tabs 03/05/25 Rx meloxicam 15 mg tablet 15 mg PO DAILY PRN pain 02/2002/27/25 History Allergy/AdvReac Type Severity Reaction Status Date / Time doxycycline Allergy Severe swelling Verified 02/28/25 14:42 latex Allergy Intermediate rash Verified 02/28/25 14:42 Family History Father Hypertension Brother Hypertension CVA (cerebral vascular accident) Mother Hypertension CVA (cerebral vascular accident) Grandmother Cancer no significant family history Surgical History Hx of colonoscopy Hx of wisdom tooth extraction History of bilateral cataract extraction Hx of tonsillectomy no surgical history Social History Smoking Status: Never smoker alcohol intake: current alcohol intake frequency: a few times a month substance use type: does not use what type of physical activity do you participate in: walking frequency: daily Prior Cardiac Testing/Procedures Prior Cardiac Testing/Procedures: Stress Test Review of Systems (Anesthesia) ROS Narrative System reviewed and no additional complaints, except as documented. Physical Exam Const alert, oriented x3 and average body habitus Orientation / Consciousness: awake HEENT dentition normal Neck full ROM Resp normal respiratory effort Auscultation: clear to auscultation bilaterally Cardio regular rate, regular rhythm and no murmurs Neuro oriented x3 and moves all extremities 03/06/25 0741 <Electronically signed by Onofre Click C RNA> Date _ Onofre Click PUBLIC SAFETY TELECOMMUNICATOR Cosigner Signature: Date CC: ~ Signed [facility] Work Phone: [phone] 246-937304-15-2025 History and physical note [facility] Note Date/Time March 06, 2025 7:1 4am [facility] Medical Records Department [address] [place] [id number] History & Physical Exam 03/06/25712 MR#: [id number] Acct: [id number] Name: RUPALANTONI RAUL Rep #:[id number] : 1950 74 From: Loyd Watters DO PCP: Dr. Cate Sapp MD Status:R [facility] Location: [place] [address] History and Physical Date of Admission: 03/06/25 [facility] [address] [place], [place] [id number] OFFICE VISIT Date of Service: 01/24/25 MR#: [id number] Acct: [id number] Name: ANTONI GOLDSMITH Rep #: [id number] : 1950 Provider: Dr. Loyd Watters, Age/Sex: 74/M Location: [facility] [place] Status: Signed Intake Vital Signs 12/04/2513:37 Height 5 ft 9 in Weight: 250 lb 2 oz BMI 36.9 Intake Visit Reasons: BILATERAL KNEES Allergies doxycycline Allergy (Severe, Verified 01/24/25 12:57) swelling latex Allergy (Intermediate, Verified 01/24/25 12:57) rash Medications ?Medication ?Instructions ?Recorded ?Confirmed ?Type aspirin 81 mg tablet,delayed 81 mg PO DAILY 02/21/19 01/24/25 History release cetirizine 10 mg tablet (Zyrtec) 5 mg PO DAILY PRN 02/21/19 01/24/25 Hist ory glucosamine HCl 1,500 mg tablet 1,500 mg PO DAILY 02/21/19 01/24/25 Hist ory multivitamin 1 cap PO DAILY 02/21/19 01/24/25 History biotin 1 mg capsule 1 mg PO DAILY 06/29/22 01/24/25 History glucosamine-chondroitin 250 mg-200 2 tab PO BID 06/29/22 01/24/25 History mg tablet (Osteo Bi-Flex) lisinopril 20 2 tab PO DAILY #180 tabs 04/18/24 Rx mg-hydrochlorothiazide 12.5 mg tablet doxazosin 4 mg tablet 4 mg PO BID 3 months #180 tabs 09/04/24 01/24/25 Rx amlodipine 10 mg tablet 10 mg PO DAILY #90 tabs 10/03/24 5 Rx indomethacin 50 mg capsule 50 mg PO BID 12/04/24 01/24/25 History meloxicam 15 mg tablet 15 mg PO DAILY PRN pain #90 tabs 5 01/24/25 Rx Have you fallen in the past year?: No PFSH Medical History Elevated PSA BPH (benign prostatic hyperplasia) Abnormal EKG Flu vaccine need Osteoarthritis Bilateral primary osteoarthritis of knee Health care maintenance ESTRELLA (acute kidney injury) Hearing loss in right ear benign growth on prostate History of squamous cell carcinoma History of basal cell carcinoma History of kidney stones Hypertension History of pneumonia Gout Arthritis Seasonal allergies Surgical History History of bilateral cataract extraction Hx of tonsillectomy Family History Father HypertensionBrother Hypertension CVA (cerebral vascular accident)Mother Hypertension CVA (cerebral vascular accident)Grandmother Cancer Social History Smoking Status: Never smoker alcohol intake: current alcohol intake frequency: a few times a month substance use type: does not use what type of physical activity do you participate in: walking frequency: daily HPI BILATERAL KNEES Details: This documentation accurately reflects the service provided and the decisions made by me, Dr. Loyd Watters, DO 01/24/25 9722. Part of today?s visit was documented by Maame HULL, acting as scribe. ANTONI GOLDSMITH is a 74 year old M here today for bilateral knee pain. He was having swelling in the left leg but that has came down now. He would like to discuss knee replacement as well. He would like to do both at the same time. Thetenderness,swelling and redness in the left index finger has went away. He has been taking the indomethacin. He cannot state that 1 knee is worse than the other he does feel is affecting his quality of life he cannot walk in a grocery store without having significant discomfort. 12/04/2024:74 year old M here today for bilateral knees. Patient notes that he has had knee pain for about 5 years with his pain worsening recently. Patient complains of pain over his anterior knee. He denies any known injury. He states that he has bilateral leg swelling. He has popping and clicking in his knees which is a uncomfortable. He has knee instability. Patient is using a walker to ambulate. Patient notes that he is taking ibuprofen daily for pain. He denies any recent xrays, injections, bracing, or physical therapy. No fevers or chills. He does have a history of gout. He has stiffness of his left index finger with swelling and redness. He denies any recent injury although hurt himself with a nail gun over a year ago. He notes his pain started about 5 days ago. He does have indomethacin at home from prior gout attacks. Plan:Educated the patient about the anatomy of the knee and etiology of his pain. Spoke with him about having severe osteoarthritis of his bilateral knee. Explained his options- steroid injection, viscosupplementation injections, medrol dose tristan, physical therapy, bracing, total knee arthroplasty. Recommendedthe patient get some lab work for uric acid as he likely is having a gout flare.Gave the patient a paper regarding the gout diet. If he has high uric acid, he will need to talk with his PCP about a possible medications including allopurinol. He may continue to take the indomethacin in addition to the Medrol Dosepak. If he has knee injections, he would be unable to have a total knee arthroplastyfor 3 months. Spoke with him about the different bracing- knee sleeve vs a more supportive brace. Follow up on an as needed basis or sooner if pain, swelling, numbness or associated symptoms, or concerns develop. All questions answered. Patient in agreement of plan. 10/01/2021 visit:here today for continued bilateral knee pain. Patient states that he is doing better today due to a recent cataract surgery and limiting his activities. He states that he been very active and his pain has been increasing.He has an injection 11/29/20 which was helpful for until June. He has pain over his anterior knee. Patient has popping and clicking, and grinding. Patient wouldlike to discuss repeat injection. Plan:Patient may get repeat injections every 3 months as needed. Spoke with him about viscosupplementation injections if he would like to try those. Explained that he may be a candidate for a total knee arthroplasty if the injections stop being helpful. Patient may take an anti-inflammatory the day and a few days following a day where he is doing many activities. Bilateral knee steroid injection given. Ortho Exam General General: Yes no acute distress and Yes well groomed Neurologic: Yes alert and Yes oriented x3 Psychologic: Yes reasonable and appropriate Right Knee Skin/Wound: Yes CDI, No erythema, No ecchymosis and No swelling Knee ROM: Yes ROM-Extension -20 to 0 and Yes ROM-Flexion 0-140 (112) Examination: No Med jt line tenderness, No Lat jt line tenderness, Yes Pain withflexion and No Pain with extention Stability: NML: Anterior Drawer, NML: Posterior Drawer, NML: Valgus 0, NML: Valgus 30 (3mm medial gapping), NML: Varus 0 and NML: Varus 30 Patella Translation: 1 Patella Grind: Yes KNEE: varus deformity- slight. Left Knee Skin/Wound: Yes CDI, No ecchymosis, No erythema and No swelling Knee ROM: Yes ROM-Extension -20 to 0 (-4) and Yes ROM-Flexion 0-140 (105) Examination: No med jt line tenderness and No Lat jt line tenderness Stability: NML: Valgus 0, NML: Valgus 30 (3mm medial gapping), NML: Varus 0 and NML: Varus 30 Patella Translation: 1 KNEE: prominant tibial tubercle bilateral Head: Normocephalic Atraumatic Chest: symmetrical rise, non-labored breathing, no audible wheeze Abdomen: no guarding, non-rigid Supplemental Info 12/04/2024 uric acid upper limit of normal 7.0 12/04/2024 x-ray left index finger: Punched-out lytic lesions(rat-bite erosions) multiple joints consistent with gout 12/04/2024 x-ray right knee: Advanced medial compartment osteoarthritis moderate patellofemoral 12/04/2024 x-ray left knee: advanced medial compartment osteoarthritis, mod/severe patellofemoral 11/13/2020 x-ray Right knee advanced medial compartment knee arthrosis, moderateto severe patellofemoral arthrosis 11/13/2020 xray left knee: Moderate patellofemoral arthrosis Moderate medial joint space narrowing and subchondral sclerosis Coding Level of Care Code Off vis,est,level 4 Diagnoses Primary osteoarthritis of left knee M17.12 Osteoarthritis type: primary Primary osteoarthritis of right knee M17.11 Osteoarthritis type: primary Gout M10.9 Gout site: knee Gout etiology: idiopathic Laterality: unspecified laterality Assessment and Plan Assessment and Plan (1) Left knee DJD: Status: Acute Qualifiers: Osteoarthritis type: primary Qualified Code(s): M17.12 - Unilateral primary osteoarthritis, left knee (2) Right knee DJD: Status: Acute Qualifiers: Osteoarthritis type: primary Qualified Code(s): M17.11 - Unilateral primary osteoarthritis, right knee (3) Gout: Status: Chronic Qualifiers: Gout site: knee Gout etiology: idiopathic Laterality: unspecified laterality Plan Patient is here today for continued bilateral knee pain. He would like to discuss knee replacement surgery, I counseled him a would not recommend doing bilateral knee replacements at the same time considering he has gout and oftentimes pain is much more significant in patients with gout. risks, benefitsand alternatives of surgery reviewed including but not limited to bleeding, infection, nerve, artery and/or tissue damage, fracture, VTE, mechanical feel ofthe knee, continued pain, stiffness and expected post-operative course.?I spoke with patient that he will need to physical therapy after surgery. Patient shouldnot take any NSAIDS, indomethacin, or tumeric 7 days prior surgery. He should stop taking the fish oil and other herbal supplements 3 weeks before surgery. Heshould try to avoid any dental work for 3 months after surgery. I informed patient about the Iovera procedure that we can do before surgery and he would like to proceed with the procedure if his insurance approves it. Patient also wishes to proceed with knee replacement for the right knee first hewould like to do the iovera as well. Tentative surgery date February 20, 2025 same-day surgery Follow up for Iovera procedure or sooner if pain, swelling, numbness or associated symptoms, or concerns develop. All questions answered. Patient in agreement of plan. Clinical Quality Measures Falls Risk Screening/Assistive Devices Have you fallen in the past year?: No 01/24/25 1342 <Electronically signed by Loyd Watters DO> Date Loyd Watters DO I have examined the patient and the H&P has been reviewed. There are no clinicalchanges since date of exam. 03/06/25 0714 <Electronically signed by Loyd Watters DO> Cosigner Signature (if applicable): CC: Dr. Cate Sapp MD; Dr. Loyd Watters DO~ Signed [facility] Work Phone: 1(230) 550-408704-15-2025 Consult note [facility] Medical Records Department [address] [place] [address] Pre-Anesthesia Evaluation 03/06/25 0738 MR#: [id number] Acct: [id number] Name: ANTONI GOLDSMITH Rep #:[id number] : 1950 74 From: Onofre King PCP: Dr. Cate Sapp MD Status:R EG SDC Y Race: C Location: [place] [address] ASA Classification* ASA Classification ASA Classification: 2 (HTN) Assessment & Plan Anesthesia* Anesthesia Assessment Anesthesia Assessment: Discussed sedation and/or anesthesia options, risks, benefits, and alternatives with patient/parents/legal guardian/POA. Questions invited. The patient/parents/legal guardian/POA seems to understand and agrees to proceedwith anesthesia plan. Reviewed the physical assessment, medical history, allergy history and patient home medications list prior to surgery/procedure/anesthetic and documented any changes. Performed airway and anesthesia risk assessments. Anesthesia Type Anesthesia Type: Spinal and Block History Source History Obtained from:: Patient Anesthesia Focused Assessment* Oxygen Delivery Method: Room Air Airway Assessment Mouth opens: 2 cm Mallampati Score: II Teeth Condition: Intact Neck Range of motion (ROM): Full ROM Focused Labs Anesthesia Preop lab: CBC WBC 8.4 K/mm3 (4.4-11.0) 01/29/25 14:55 01/29/25 RBC 4.37 M/mm3 (4.6-6.2) L 01/29/25 14:55 01/29/25 Hgb 13.1 g/dL (13.0-16.5) 01/29/25 14:55 01/29/25 Hct 39.3 % (40-54) L 01/29/25 14:55 01/29/25 Plt Count 477 K/mm3 (150-450) H 01/29/25 14:55 01/29/25 CHEMISTRY Potassium 4.1 mmol/L (3.3-5.1) 01/29/25 14:55 01/29/25 Sodium 138 mmol/L (133-145) 01/29/25 14:55 01/29/25 Magnesium 2.0 mg/dL (1.5-2.2) 02/22/25 11:49 02/22/25 BUN 17 mg/dL (4-19) 01/29/25 14:55 01/29/25 Creatinine 1.10 mg/dL (0.70-1.20) 01/29/25 14:55 01/29/25 Glucose 103 mg/dL (70-99) H 01/29/25 14:55 01/29/25 POC Glucose 166 mg/dL (74-106) H 03/06/25 06:32 03/06/25 COAG PT 14.3 SECONDS (11.7-14.9) 02/22/25 11:50 Pre-Assessment Diagnosis/Proposed Procedure Planned Operative Procedure(s): RIGHT TOTAL KNEE ARTHROPLASTY Anesthesia History 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 When Was Last Pacemaker Check QUESTION #4 FULL TEXT: You/Your Family Experience fever (hyperthermia) with Anesthesia Any additional information?: No Last Oral Intake Last Oral intake: Last Oral Intake NPO since 05:30 03/06/25 06:35 Meds taken in AM with sips of Yes 03/06/25 06:35 water? Meds patient instructed to allpopurinol 03/06/25 06:35 take am of surgery doxazosin Any additional information?: No PONV PONV - customer service attendant: PONV - customer service attendant Female No 02/06/25 15:11 HX of Motion Sickness No 02/06/25 15:11 HX of N/V After Surgery No 02/06/25 15:11 Non-Smoker Yes 02/06/25 15:11 Duration of Surgery greater Yes 02/06/25 15:11 than 60 minutes Number of Risk Factors 2 02/06/25 15:11 PONV Score Moderate Risk 02/06/25 15:11 Any additional information?: No Height & Weight Height & Weight: Anesthesia: Height & Weight Height 5 ft 9 in 03/06/25 06:35 Weight: 100.244 kg 03/06/25 06:35 Body Mass Index (BMI) 32.6 03/06/25 06:35 Respiratory Assessment Respiratory Assessment - customer service attendant: Respiratory Tract Infection Hx - customer service attendant Hx Respiratory Tract Infection No 02/06/25 15:11 Any additional information?: No STOP Sleep Apnea STOP Sleep Apnea - customer service attendant: STOP Sleep Apnea - customer service attendant Hx Hypertension Yes: CONTROLLED WITH MED 02/06/25 15:11 Hx Sleep Apnea No 02/06/25 15:11 CPAP BIPAP Do you snore loudly (louder Yes 02/06/25 15:11 than talking or can be heard Do you often feel tired/ No 02/06/25 15:11 fatigued/ sleepy during daytime? Has anyone observed you stop No 02/06/25 15:11 breathing during sleep? STOP Results Positive 02/06/25 15:11 QUESTION #5 FULL TEXT : Do you snore loudly (louder than talking or can be heard through closeddoors)? Any additional information?: No Tobacco Use History Tobacco Use History - customer service attendant: Tobacco Use History - customer service attendant Tobacco Use Smoking Status Never smoker 02/06/25 15:11 Hx Tobacco Use No 02/06/25 15:11 Years Smoking Packs Smoked per Day Smoking Cessation Date was within the last 15 years Hx Smoking Cessation Date Hx Smoking Cessation Counseling Any additional information?: No Hematologic Medial History Hematologic Hx - customer service attendant: Hematologic Medical Hx - chain tender Hx of Blood Transfusion No 02/06/25 15:11 Hx of Transfusion in last 3 No 02/06/25 15:11 Months Date of Last Transfusion (if within last 3 months) Ever experience any problems No 02/06/25 15:11 with transfusion(s)? Specify any problems Hx of Preganancy in last 3 N/A 02/06/25 15:11 Months Nurse Filling Out Transfusion DSCHRIBER 02/06/25 15:11 & Questions: Date: 02/06/25 02/06/25 15:11 Time: 15:14 02/06/25 15:11 Patient unable to answer at this time (ie. 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 Hx Now No 02/06/25 15:11 Gestational Age (in weeks): EDC: Hx Hx Para Hx Section SAB No 02/06/25 15:11 Any additional information?: No Active Medications Active Medications: Current Medications Generic Name Dose Route Start Last Admin Trade Name Freq PRN Reason Stop Dose Admin Acetaminophen 1,000 mg 03/06/25 11:00 03/06/25 06:48 Acetaminophen 500 Mg Tablet PO 03/06/25 11:01 1,000 mg X1 ONE Administration Celecoxib 400 mg 03/06/25 11:00 03/06/25 06:49 Celecoxib 200 Mg Capsule PO 03/06/25 11:01 400 mg X1 ONE Administration Dexamethasone Sodium Phosphate 10 mg 03/06/25 11:00 Dexamethasone 10 Mg/Ml Vial IV 03/06/25 11:01 X1 ONE Gabapentin 600 mg 03/06/25 11:00 03/06/25 06:48 Gabapentin 600 Mg Tablet PO 03/06/25 11:01 600 mg X1 ONE Administration Cefazolin Sodium 2 gm/ N/A 20 mls @ 400 mls/hr 03/06/25 11:00 IV 03/06/25 11:02 PREOP ONE Tranexamic Acid 1,000 mg/ 110 mls @ 660 mls/hr 03/06/25 11:00 Sodium Chloride IV 03/06/25 11:09 X1 ONE Tranexamic Acid 1,000 mg/ 110 mls @ 660 mls/hr 03/06/25 11:00 Sodium Chloride IV 03/06/25 11:09 X1 ONE Lactated Ringer's 1,000 mls @ 125 mls/hr 03/06/25 11:00 IV 03/06/25 18:59 .Q8H ZORAIDA Magnesium Sulfate 1 gm/ 102 mls @ 408 mls/hr 03/06/25 11:00 03/06/25 06:55 Dextrose IV 03/06/25 11:14 408 mls/hr X1 ONE Administration Sodium Chloride 1,000 mls @ 15 mls/hr 03/06/25 06:10 03/06/25 06:54 IV 15 mls/hr .Q48H ZORAIDA Administration Insulin Human Lispro 1 - 6 unit 03/06/25 11:00 Insulin Lispro 100 Unit/Ml Insuln.Pen SC 03/06/25 18:00 Q4H PRN PRN BG>/= 180, SEE PROTOCOL Protocol Scopolamine HBr 1 patch 03/06/25 11:00 03/06/25 06:49 Scopolamine 1mg/72hr Patch TD 03/06/25 11:01 1 patch X1 ONE [facility] History (Updated 02/28/25 @ 15:[address] Cate Sapp MD) Bilateral foot pain Loss of hearing Wears glasses Alcohol use History of steroid therapy Arthritis Gout High cholesterol Injury of head and neck History of ulceration Heartburn Non-smoker History of pain when walking History of edema History of stress test Elevated PSA BPH (benign prostatic hyperplasia) Bilateral primary osteoarthritis of knee ESTRELLA (acute kidney injury) benign growth on prostate History of squamous cell carcinoma History of basal cell carcinoma History of kidney stones Hypertension Arthritis Seasonal allergies Home Medications ?Medication ?Instructions ?Recorded ?Last Taken ?Type lisinopril 20 2 tab PO DAILY #180 tabs 03/05/25 Rx mg-hydrochlorothiazide 12.5 mg tablet doxazosin 4 mg tablet 4 mg PO BID 3 months #180 ta bs 09/04/24 03/06/25 Rx allopurinol 100 mg tablet 100 mg PO QDAY #30 tabs 01/2003/06/25 Rx amlodipine 10 mg tablet 10 mg PO QHS #90 tabs 03/05/25 Rx meloxicam 15 mg tablet 15 mg PO DAILY PRN pain 02/2002/27/25 History Allergy/AdvReac Type Severity Reaction Status Date / Time doxycycline Allergy Severe swelling Verified 02/28/25 14:42 latex Allergy Intermediate rash Verified 02/28/25 14:42 Family History Father Hypertension Brother Hypertension CVA (cerebral vascular accident) Mother Hypertension CVA (cerebral vascular accident) Grandmother Cancer no significant family history Surgical History Hx of colonoscopy Hx of wisdom tooth extraction History of bilateral cataract extraction Hx of tonsillectomy no surgical history Social History Smoking Status: Never smoker alcohol intake: current alcohol intake frequency: a few times a month substance use type: does not use what type of physical activity do you participate in: walking frequency: daily Prior Cardiac Testing/Procedures Prior Cardiac Testing/Procedures: Stress Test Review of Systems (Anesthesia) ROS Narrative System reviewed and no additional complaints, except as documented. 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 Cate Sapp MD Status:[facility] Location: [place] [address] History and Physical Date of Admission: 03/06/25 [facility] [address] [place] [address] [address] [place] [address] OFFICE VISIT Date of Service: 01/24/25 MR#: [id number] Acct: [id number] Name: ANTONI GOLDSMITH Rep #: [id number] : 1950 Provider: Dr. Loyd Watters DO Age/Sex: 74/M Location: [facility] [place] Status: Signed Intake Vital Signs 12/04/2513:37 Height 5 ft 9 in Weight: 250 lb 2 oz BMI 36.9 Intake Visit Reasons: BILATERAL KNEES Allergies doxycycline Allergy (Severe, Verified 01/24/25 12:57) swelling latex Allergy (Intermediate, Verified 01/24/25 12:57) rash Medications ?Medication ?Instructions ?Recorded ?Confirmed ?Type aspirin 81 mg tablet,delayed 81 mg PO DAILY 02/21/19 01/24/25 History release cetirizine 10 mg tablet (Zyrtec) 5 mg PO DAILY PRN 02/21/19 01/24/25 Hist ory glucosamine HCl 1,500 mg tablet 1,500 mg PO DAILY 02/21/19 01/24/25 Hist ory multivitamin 1 cap PO DAILY 02/21/19 01/24/25 History biotin 1 mg capsule 1 mg PO DAILY 06/29/22 01/24/25 History glucosamine-chondroitin 250 mg-200 2 tab PO BID 06/29/22 01/24/25 History mg tablet (Osteo Bi-Flex) lisinopril 20 2 tab PO DAILY #180 tabs 04/18/24 Rx mg-hydrochlorothiazide 12.5 mg tablet doxazosin 4 mg tablet 4 mg PO BID 3 months #180 tabs 09/04/24 01/24/25 Rx amlodipine 10 mg tablet 10 mg PO DAILY #90 tabs 10/03/24 5 Rx indomethacin 50 mg capsule 50 mg PO BID 12/04/24 01/24/25 History meloxicam 15 mg tablet 15 mg PO DAILY PRN pain #90 tabs 5 01/24/25 Rx Have you fallen in the past year?: No PFSH Medical History Elevated PSA BPH (benign prostatic hyperplasia) Abnormal EKG Flu vaccine need Osteoarthritis Bilateral primary osteoarthritis of knee Health care maintenance ESTRELLA (acute kidney injury) Hearing loss in right ear benign growth on prostate History of squamous cell carcinoma History of basal cell carcinoma History of kidney stones Hypertension History of pneumonia Gout Arthritis Seasonal allergies Surgical History History of bilateral cataract extraction Hx of tonsillectomy Family History Father HypertensionBrother Hypertension CVA (cerebral vascular accident)Mother Hypertension CVA (cerebral vascular accident)Grandmother Cancer Social History Smoking Status: Never smoker alcohol intake: current alcohol intake frequency: a few times a month substance use type: does not use what type of physical activity do you participate in: walking frequency: daily HPI BILATERAL KNEES Details: This documentation accurately reflects the service provided and the decisions made by me, Dr. Loyd Watters, DO 01/24/25 4915. Part of today?s visit was documented by Maame HULL, acting as scribe. ANTONI GOLDSMITH is a 74 year old M here today for bilateral knee pain. He was having swelling in theleft leg but that has came down now. He would like to discuss knee replacement as well. He would like to do both at the same time. Thetenderness,swelling and redness in the left index finger has wentaway. He has been taking the indomethacin. He cannot state that 1 knee is worse than the other he does feel is affecting his quality of life he cannot walk in a grocery store without having significant discomfort. 12/04/2024:74 year old M here today for bilateral knees. Patient notes that he has had knee pain forabout 5 years with his pain worsening recently. Patient complains of pain over his anterior knee. He denies any known injury. He states that he has bilateral leg swelling. He has popping and clickingin his knees which is a uncomfortable. He has knee instability. Patient is using a walker to ambulate. Patient notes that he is taking ibuprofen daily for pain. He denies any recent xrays, injections, bracing, or physical therapy. No fevers or chills. He does have a history of gout. He has stiffness of his left index finger with swelling and redness. He denies any recent injury although hurt himself with a nail gun over a year ago. He notes his pain started about 5 days ago. He does have indomethacin at home from prior gout attacks. Plan:Educated the patient about the anatomy of the knee and etiology of his pain. Spoke with him about having severe osteoarthritis of his bilateral knee. Explained his options- steroid injection, viscosupplementation injections, medrol dose tristan, physical therapy, bracing, total knee arthroplasty. R ecommendedthe patient get some lab work for uric acid as he likely is having a gout flare.Gave the patient a paper regarding the gout diet. If he has high uric acid, he will need to talk with his PCPabout a possible medications including allopurinol. He may continue to take the indomethacin in addition to the Medrol Dosepak. If he has knee injections, he would be unable to have a total knee arthroplastyfor 3 months. Spoke with him about the different bracing- knee sleeve vs a more supportive brace. Follow up on an as needed basis or sooner if pain, swelling, numbness or associated symptoms, or concerns develop. All questions answered. Patient in agreement of plan. 10/01/2021 visit:here today for continued bilateral knee pain. Patient states that he is doing better today due to a recent cataract surgery and limiting his activities. He states that he been very active and his pain has been increasing.He has an injection 11/29/20 which was helpful for until June. He has pain over his anterior knee. Patient has popping and clicking, and grinding. Patient wouldlike to discuss repeat injection. Plan:Patient may get repeat injections every 3 months as needed. Spoke with him about viscosupplementation injections if he would like to try those. Explained that he may be a candidate for a total knee arthroplasty if the injections stop being helpful. Patient may take an anti-inflammatory the dayand a few days following a day where he is doing many activities. Bilateral knee steroid injection given. Ortho Exam General General: Yes no acute distress and Yes well groomed Neurologic: Yes alert and Yes oriented x3 Psychologic: Yes reasonable and appropriate Right Knee Skin/Wound: Yes CDI, No erythema, No ecchymosis and No swelling Knee ROM: Yes ROM-Extension -20 to 0 and Yes ROM-Flexion 0-140 (112) Examination: No Med jt line tenderness, No Lat jt line tenderness, Yes Pain withflexion and No Painwith extention Stability: NML: Anterior Drawer, NML: Posterior Drawer, NML: Valgus 0, NML: Valgus 30 (3mm medial gapping), NML: Varus 0 and NML: Varus 30 Patella Translation: 1 Patella Grind: Yes KNEE: varus deformity- slight. Left Knee Skin/Wound: Yes CDI, No ecchymosis, No erythema and No swelling Knee ROM: Yes ROM-Extension -20 to 0 (-4) and Yes ROM-Flexion 0-140 (105) Examination: No med jt line tenderness and No Lat jt line tenderness Stability: NML: Valgus 0, NML: Valgus 30 (3mm medial gapping), NML: Varus 0 and NML: Varus 30 Patella Translation: 1 KNEE: prominant tibial tubercle bilateral Head: Normocephalic Atraumatic Chest: symmetrical rise, non-labored breathing, no audible wheeze Abdomen: no guarding, non-rigid Supplemental Info 12/04/2024 uric acid upper limit of normal 7.0 12/04/2024 x-ray left index finger: Punched-out lytic lesions(rat-bite erosions) multiple joints consistent with gout 12/04/2024 x-ray right knee: Advanced medial compartment osteoarthritis moderate patellofemoral 12/04/2024 x-ray left knee: advanced medial compartment osteoarthritis, mod/severe patellofemoral 11/13/2020 x-ray Right knee advanced medial compartment knee arthrosis, moderateto severe patellofemoral arthrosis 11/13/2020 xray left knee: Moderate patellofemoral arthrosis Moderate medial joint space narrowing and subchondral sclerosis Coding Level of Care Code Off vis,est,level 4 Diagnoses Primary osteoarthritis of left knee M17.12 Osteoarthritis type: primary Primary osteoarthritis of right knee M17.11 Osteoarthritis type: primary Gout M10.9 Gout site: knee Gout etiology: idiopathic Laterality: unspecified laterality Assessment and Plan Assessment and Plan (1) Left knee DJD: Status: Acute Qualifiers: Osteoarthritis type: primary Qualified Code(s): M17.12 - Unilateral primary osteoarthritis, left knee (2) Right knee DJD: Status: Acute Qualifiers: Osteoarthritis type: primary Qualified Code(s): M17.11 - Unilateral primary osteoarthritis, right knee (3) Gout: Status: Chronic Qualifiers: Gout site: knee Gout etiology: idiopathic Laterality: unspecified laterality Plan Patient is here today for continued bilateral knee pain. He would like to discuss knee replacement surgery, I counseled him a would not recommend doing bilateral knee replacements at the same time considering he has gout and oftentimes pain is much more significant in patients with gout. risks, bene fitsand alternatives of surgery reviewed including but not limited to bleeding, infection, nerve, artery and/or tissue damage, fracture, VTE, mechanical feel ofthe knee, continued pain, stiffness andexpected post-operative course.?I spoke with patient that he will need to physical therapy after surgery. Patient shouldnot take any NSAIDS, indomethacin, or tumeric 7 days prior surgery. He should stop taking the fish oil and other herbal supplements 3 weeks before surgery. Heshould try to avoid any dental work for 3 months after surgery. I informed patient about the Iovera procedure that we arjun before surgery and he would like to proceed with the procedure if his insurance approves it. Patient also wishes to proceed with knee replacement for the right knee first hewould like to do the iovera as well. Tentative surgery date February 20, 2025 same-day surgery Follow up for Iovera procedure or sooner if pain, swelling, numbness or associated symptoms, or concerns develop. All questions answered. Patient in agreement of plan. Clinical Quality Measures Falls Risk Screening/Assistive Devices Have you fallen in the past year?: No 01/24/25 1342 Date Loyd Watters DO I have examined the patient and the H&P has been reviewed. There are no clinicalchanges since date of exam. 03/06/25713 Cosigner Signature (if applicable): CC: Dr. Cate Sapp MD; Dr. Loyd Watters DO~ Signed [facility]04-15-2025 [facility] Medical Records Department [address] [place] [address] History Physical Exam 03/06/25712 MR#: [id number] Acct: [id number] Name: ANTONI GOLDSMITH Rep #: [id number] : 1950 74 From: Loyd Watters DO PCP: Dr. Cate Sapp MD Status:[facility] Location: [place] [address] History and Physical Date of Admission: 03/06/25 [facility] [address] [place] [address] [address] [place] [address] OFFICE VISIT Date of Service: 01/24/25 MR#: [id number] Acct: [id number] Name: ANTONI GOLDSMITH Rep #: [id number] : 1950 Provider: Dr. Loyd Watters DO Age/Sex: 74/M Location: [facility] [place] Status: Signed Intake Vital Signs 12/04/2513:37 Height 5 ft 9 in Weight: 250 lb 2 oz BMI 36.9 Intake Visit Reasons: BILATERAL KNEES Allergies doxycycline Allergy (Severe, Verified 01/24/25 12:57) swelling latex Allergy (Intermediate, Verified 01/24/25 12:57) rash Medications ???Medication ???Instructions ???Recorded ???Confirmed ???Type aspirin 81 mg tablet,delayed 81 mg PO DAILY 02/21/19 01/24/25 History release cetirizine 10 mg tablet (Zyrtec) 5 mg PO DAILY PRN 02/21/19 01/24/25 History glucosamine HCl 1,500 mg tablet 1,500 mg PO DAILY 02/21/19 01/24/25 History multivitamin 1 cap PO DAILY 02/21/19 01/24/25 History biotin 1 mg capsule 1 mg PO DAILY 06/29/22 01/24/25 History glucosamine-chondroitin 250 mg-200 2 tab PO BID 06/29/22 01/24/25 History mg tablet (Osteo Bi-Flex) lisinopril 20 2 tab PO DAILY #180 tabs 04/18/24 01/24/25 Rx mg-hydrochlorothiazide 12.5 mg tablet doxazosin 4 mg tablet 4 mg PO BID 3 months #180 tabs 09/04/24 01/24/25 R x amlodipine 10 mg tablet 10 mg PO DAILY #90 tabs 10/03/24 01/24/25 Rx indomethacin 50 mg capsule 50 mg PO BID 12/04/24 01/24/25 History meloxicam 15 mg tablet 15 mg PO DAILY PRN pain #90 tabs 12/18/24 01/24/25 Rx Have you fallen in the past year?: No PFSH Medical History Elevated PSA BPH (benign prostatic hyperplasia) Abnormal EKG Flu vaccine need Osteoarthritis Bilateral primary osteoarthritis of knee Health care maintenance ESTRELLA (acute kidney injury) Hearing loss in right ear benign growth on prostate History of squamous cell carcinoma History of basal cell carcinoma History of kidney stones Hypertension History of pneumonia Gout Arthritis Seasonal allergies Surgical History History of bilateral cataract extraction Hx of tonsillectomy Family History Father HypertensionBrother Hypertension CVA (cerebral vascular accident)Mother Hypertension CVA (cerebral vascular accident)Grandmother Cancer Social History Smoking Status: Never smoker alcohol intake: current alcohol intake frequency: a few times a month substance use type: does not use what type of physical activity do you participate in: walking frequency: daily HPI BILATERAL KNEES Details: This documentation accurately reflects the service provided and the decisions made by me, Dr. Loyd Watters, DO 01/24/25 5465. Part of today???s visit was documented by Maame HULL, acting as scribe. ANTONI GOLDSMITH is a 74 year old M here today for bilateral knee pain. He was having swelling in the left leg but that has came down now. He would like to discuss knee replacement as well. He would like to do both at the same time. The tenderness,swelling and redness in the left index finger has went away. He has been taking the indomethacin. He cannot state that 1 knee is worse than the other he does feel is affecting his quality of life he cannot walk in a grocery store without having significant discomfort. 12/04/2024:74 year old M here today for bilateral knees. Patient notes that he has had knee pain for about 5 years with his pain worsening recently. Patient complains of pain over his anterior knee. He denies any known injury. He states that he has bilateral leg swelling. He has popping and clicking in his knees which is a uncomfortable. He has knee instability. Patient is using a walker to ambulate. Patient notes that he is taking ibuprofen daily for pain. He denies any recent xrays, injections, bracing, or physical therapy. No fevers or chills. He does have a history of gout. He has stiffness of his left index finger with swelling and redness. He denies any recent injury although hurt himself with a nail gun over a year ago. He notes his pain started about 5 days (morecontent not included)...[facility]03-21-2025 Evaluation note* Diagnosis Onset Date Resolution Status Admit Date Knee pain, right acute February 092024 10:43am Right knee DJD acute January 10:43am Gout chronic February 09 10:43am Knee pain, right acute February 2:15pm Right knee DJD acute February 23, 2025 2:15pm Bilateral foot pain acute February 28, 2025 2:41pm Gout chronic February 28 2:41pm Status post total right knee replacement acute March 19, 2025 1:21pm Status post total right knee replacement acute April 09, 2025 1 2:54pm Gout chronic April 09, 2025 12:54pm Hypertension chronic April 09 12:54pm Orthopedic aftercare acute April 13, 2025 11:01am Status post total right knee replacement acute April 13, 2025 1 1:01am Left knee DJD acute June 08, 2025 10:50am [facility] Work Phone: 1(217) 856-136003-17-2025 Radiology Diagnostic study note [facility] [address] [place], [place] [address] Extremity Lower without Contra MR#: [id number] Acct: [id number] Name: ANTONI GOLDSMITH Rep #: [id number] : 1950 M 74 From: Eloy Sibley MD PCP: Dr. Cate Sapp MD Status: R EG CLI Study:Extremity Lower without Contra Date of Exam: 02/05/25 Exam# [id number] Ordering Dr: Loyd Watters DO PROCEDURE: EXTREMITY LOWER WITHOUT CONTRA 02/05/2025 REASON FOR EXAM: TEMPLATING FOR RIGHT TKA TECHNIQUE: Axial extremity without intravenous contrast. Coronal and Sagittal reconstruction series were provided. CONTRAST: No contrast. One or more dose reduction techniques were used (e.g., Automated exposure control, adjustment of the mA and/or kV according to patient size, use of iterative reconstruction technique). RADIATION DOSE SUMMARY: CTDlvol: 14 mGy DLP: 1378.57 mGycm COMPARISON: None. FINDINGS: Bones: No evidence of fracture. Joints: Imaging of the right hip joint was obtained. Mild joint space narrowing. Imaging of the right knee was obtained. Marked degree of joint space narrowing with degenerative spurring of the medial femoral condyle and medial tibial plateau with sub cortical cystic changes. Moderate degree of joint space narrowing of the patellofemoral joint with degenerative changes. Soft Tissues: Minimal joint effusion. CT/Extremity Lower without Contra IMPRESSION: Marked degree of joint space narrowing and osteoarthritis of the medial knee joint with subchondralcystic changes and degenerative spur formation. Reading Location: [facility] CC: Dr. Cate Sapp MD; Dr. 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 [facility]03-05-2025 Evaluation note* Diagnosis Onset Date Resolution Status Admit Date Left knee DJD acute January 24, 2025 12:47pm Right knee DJD acute January 24, 2025 12:47pm Gout chronic January 24 12:47pm Preoperative evaluation to r ule out surgical contraindication acute [facility] 2024 2:15pm Gout chronic January 29 2:15pm Hypertension chronic January 29, 2025 2:15pm Knee pain, right acute February 092024 10:43am Right knee DJD acute January 10:43am Gout chronic February 09 10:43am Knee pain, right acute February 2:15pm Right knee DJD acute February 23, 2025 2:15pm Bilateral foot pain acute February 28, 2025 2:41pm Gout chronic February 28 2:41pm Status post total right knee replacement acute March 19, 2025 1:21pm [facility] Work Phone: 1(226) 980-990201-13-2025 Evaluation note* Diagnosis Onset Date Resolution Status Admit Date Finger pain, left acute December 04, 2024 2:10pm Left knee DJD acute November 2:10pm Right knee DJD acute December 042024 2:10pm Gout chronic December 04, 2024 2:10pm Left knee DJD acute January 24, 2025 12:47pm Right knee DJD acute January 24, 2025 12:47pm Gout chronic January 24 12:47pm Preoperative evaluation to r ule out surgical contraindication acute [facility] 2024 2:15pm Gout chronic January 29 2:15pm Hypertension chronic January 29, 2025 2:15pm Knee pain, right acute February 092024 10:43am Right knee DJD acute January 10:43am Gout chronic February 09 10:43am [facility] Work Phone: 1(356) 942-620901-13-2025 Evaluation note* Diagnosis Onset Date Resolution Status Admit Date Finger pain, left acute December 04, 2024 2:10pm Left knee DJD acute November 2:10pm Right knee DJD acute December 042024 2:10pm Gout chronic December 04, 2024 2:10pm Left knee DJD acute January 24, 2025 12:47pm Right knee DJD acute January 24, 2025 12:47pm Gout chronic January 24 12:47pm Preoperative evaluation to r attilae out surgical contraindication acute [facility] 2024 2:15pm Gout chronic January 29 2:15pm Hypertension chronic January 29, 2025 2:15pm Knee pain, right acute February 092024 10:43am Right knee DJD acute January 10:43am Gout chronic February 09 10:43am Knee pain, right acute February 2:15pm Right knee DJD acute February 23, 2025 2:15pm [facility] Work Phone: 1(777) 629-552601-13-2025 Evaluation note* Diagnosis Onset Date Resolution Status Admit Date Finger pain, left acute December 04, 2024 2:10pm Left knee DJD acute November 2:10pm Right knee DJD acute December 042024 2:10pm Gout chronic December 04, 2024 2:10pm Left knee DJD acute January 24, 2025 12:47pm Right knee DJD acute January 24, 2025 12:47pm Gout chronic January 24 12:47pm Preoperative evaluation to r ule out surgical contraindication acute [facility] 2024 2:15pm Gout chronic January 29 2:15pm Hypertension chronic January 29, 2025 2:15pm Knee pain, right acute February 092024 10:43am Right knee DJD acute January 10:43am Gout chronic February 09 10:43am Knee pain, right acute February 2:15pm Right knee DJD acute February 23, 2025 2:15pm Bilateral foot pain acute February 28, 2025 2:41pm Gout chronic February 28 2:41pm [facility] Work Phone: 1(709) 357-363711-18-2024 Evaluation note* Diagnosis Onset Date Resolution Status Admit Date Health care maintenance acute N ovember 2023 1:26pm BPH (benign prostatic hyperplasia) chronic October 09, 1:26pm Gout chronic October 09, 2024 1:26pm Hypertension chronic September 1:26pm Osteoarthritis chronic September 222023 1:26pm Finger pain, left acute December 04, 2024 2:10pm Left knee DJD acute November 2:10pm Right knee DJD acute December 042024 2:10pm Gout chronic December 04, 2024 2:10pm Left knee DJD acute January 24, 2025 12:47pm Right knee DJD acute January 24, 2025 12:47pm Gout chronic January 24 12:47pm Preoperative evaluation to r ule out surgical contraindication acute [facility] 2024 2:15pm Gout chronic January 29 2:15pm Hypertension chronic January 29, 2025 2:15pm [facility] Work Phone: Evaluation note* Diagnosis Onset Date Resolution Status Gout acute Hypertension chronic Osteoarthritis [facility] Work Phone: Evaluation note* Diagnosis Onset Date Resolution Status Abnormal EKG acute Bilateral primary osteoarthritis of knee chronic BPH (benign prostatic hyperplasia) chronic Hypertension [facility] Work Phone: Reason for referral (narrative)No reason for referral information [facility] Work Phone: Summary Purpose Family History Relationship Condition Age at Onset Recorded Date/T chan father Hypertension Unknown brother Hypertension Unknown Cerebrovascular accident (CVA) Unknown mother Hypertension Unknown grandmother Malignant neoplasm Unknown Advance Directives Advance Directive Response Recorded Date/ Time Living Will Yes February 06, 2025 3:11pm Do you have a Healthcare Power of Pressure Dispatcher? Yes February 06, 2025 3:11pm Name of Medical Power of Pressure Dispatcher February 06, 2025 3:11pm Chief Complaint and Reason for Visit Chief Complaint 6 M FU Reason for Visit Gout Hypertension Osteoarthritis Chief Complaint 6 M FU Reason for Visit Abnormal EKG Bilateral primary osteoarthritis of knee BPH (benign prostatic hyperplasia) Hypertension Chief Complaint 6 M FU ABNORMAL EKG ABNORMAL EKG Reason for Visit Abnormal EKG Bilateral primary osteoarthritis of knee BPH (benign prostatic hyperplasia) Hypertension Chief Complaint 6 M FU ABNORMAL EKG ABNORMAL EKG PSA Reason for Visit Abnormal EKG Bilateral primary osteoarthritis of knee BPH (benign prostatic hyperplasia) Hypertension Chief Complaint Admit Date 6 M FU October 09, 2024 1:26pm BILATERAL KNEES December 04, 2024 2 :10pm room 4 December 04, 2024 2 :37pm EORDER December 04, 2024 3 :55pm BILATERAL KNEES January 24, 2025 12:4 7pm [facility] January 202024 2:15pm RT KNEE DJD; TEMPLATING FOR R/TKA February 05, 2025 12:20pm Reason for Visit Admit Date Health care maintenance October 09, 2 024 1:26pm BPH (benign prostatic hyperplasia) Novem 2023 1:26pm Gout October 09, 2024 1:26pm Hypertension October 09, 2024 1:26pm Osteoarthritis October 09, 2024 1:26pm Finger pain, left December 04, 2024 2 :10pm Left knee DJD December 04, 2024 2 :10pm Right knee DJD December 04, 2024 2 :10pm Gout December 04, 2024 2 :10pm Left knee DJD January 24, 2025 12:4 7pm Right knee DJD January 24, 2025 12:4 7pm Gout January 24, 2025 12:4 7pm Preoperative evaluation to r ule out surgical contraindication January 29, 2025 2:15pm Gout January 29, 2025 2:1 5pm Hypertension January 29, 2025 2:1 5pm Chief Complaint Admit Date BILATERAL KNEES December 04, 2024 2 :10pm room 4 December 04, 2024 2 :37pm EORDER December 04, 2024 3 :55pm BILATERAL KNEES January 24, 2025 12:4 7pm [facility] January 202024 2:15pm RT KNEE DJD; TEMPLATING FOR R/TKA February 05, 2025 12:20pm right knee February 09, 2025 10: 43am Reason for Visit Admit Date Finger pain, left December 04, 2024 2 :10pm Left knee DJD December 04, 2024 2 :10pm Right knee DJD December 04, 2024 2 :10pm Gout December 04, 2024 2 :10pm Left knee DJD January 24, 2025 12:4 7pm Right knee DJD January 24, 2025 12:4 7pm Gout January 24, 2025 12:4 7pm Preoperative evaluation to r ule out surgical contraindication January 29, 2025 2:15pm Gout January 29, 2025 2:1 5pm Hypertension January 29, 2025 2:1 5pm Knee pain, right February 09, 2025 10: 43am 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 09, 2025 10: 43am Gout February 09, 2025 10: 43am Chief Complaint Admit Date BILATERAL KNEES December 04, 2024 2 :10pm room 4 December 04, 2024 2 :37pm EORDER December 04, 2024 3 :55pm BILATERAL KNEES January 24, 2025 12:4 7pm [facility] January 202024 2:15pm RT KNEE DJD; TEMPLATING FOR R/TKA February 05, 2025 12:20pm right knee February 09, 2025 10: 43am E-ORDER February 22, 2025 11:4 5am RIGHT KNEE February 23, 2025 2:15 pm Reason for Visit Admit Date Finger pain, left December 04, 2024 2 :10pm Left knee DJD December 04, 2024 2 :10pm Right knee DJD December 04, 2024 2 :10pm Gout December 04, 2024 2 :10pm Left knee DJD January 24, 2025 12:4 7pm Right knee DJD January 24, 2025 12:4 7pm Gout January 24, 2025 12:4 7pm Preoperative evaluation to r ule out surgical contraindication January 29, 2025 2:15pm Gout January 29, 2025 2:1 5pm Hypertension January 29, 2025 2:1 5pm Knee pain, right February 09, 2025 10: 43am 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 09, 2025 10: 43am Gout February 09, 2025 10: 43am Knee pain, right February 23, 2025 2:15 pm 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 23, 2025 2:15 pm Chief Complaint Admit Date BILATERAL KNEES December 04, 2024 2 :10pm room 4 December 04, 2024 2 :37pm EORDER December 04, 2024 3 :55pm BILATERAL KNEES January 24, 2025 12:4 7pm [facility] January 202024 2:15pm RT KNEE DJD; TEMPLATING FOR R/TKA February 05, 2025 12:20pm right knee February 09, 2025 10: 43am E-ORDER February 22, 2025 11:4 5am RIGHT KNEE February 23, 2025 2:15 pm GOUT ISSUES February 28, 2025 2:41 pm Right Total Knee Replacement Robotic Arm Assisted March 06, 2025 5:59am Right Total Knee Replacement Robotic Arm Assisted March 06, 2025 7:13am Reason for Visit Admit Date Finger pain, left December 04, 2024 2 :10pm Left knee DJD December 04, 2024 2 :10pm Right knee DJD December 04, 2024 2 :10pm Gout December 04, 2024 2 :10pm Left knee DJD January 24, 2025 12:4 7pm Right knee DJD January 24, 2025 12:4 7pm Gout January 24, 2025 12:4 7pm Preoperative evaluation to r ule out surgical contraindication January 29, 2025 2:15pm Gout January 29, 2025 2:1 5pm Hypertension January 29, 2025 2:1 5pm Knee pain, right February 09, 2025 10: 43am 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 09, 2025 10: 43am Gout February 09, 2025 10: 43am Knee pain, right February 23, 2025 2:15 pm 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 23, 2025 2:15 pm Bilateral foot pain February 28, 2025 2:41 pm Gout February 28, 2025 2:41 pm Chief Complaint Admit Date BILATERAL KNEES January 24, 2025 12:4 7pm [facility] January 202024 2:15pm RT KNEE DJD; TEMPLATING FOR R/TKA February 05, 2025 12:20pm right knee February 09, 2025 10: 43am E-ORDER February 22, 2025 11:4 5am RIGHT KNEE February 23, 2025 2:15 pm GOUT ISSUES February 28, 2025 2:41 pm Right Total Knee Replacement Robotic Arm Assisted March 06, 2025 5:59am Right Total Knee Replacement Robotic Arm Assisted March 06, 2025 7:13am right knee March 19, 2025 1:2 1pm RIGHT TOTAL KNEE POST-OP. RX HERE April 062024 1:00pm 6 M FU April 09, 2025 12:54 pm Reason for Visit Admit Date Left knee DJD January 24, 2025 12:4 7pm Right knee DJD January 24, 2025 12:4 7pm Gout January 24, 2025 12:4 7pm Preoperative evaluation to r ule out surgical contraindication January 29, 2025 2:15pm Gout January 29, 2025 2:1 5pm Hypertension January 29, 2025 2:1 5pm Knee pain, right February 09, 2025 10: 43am 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 09, 2025 10: 43am Gout February 09, 2025 10: 43am Knee pain, right February 23, 2025 2:15 pm 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 23, 2025 2:15 pm Bilateral foot pain February 28, 2025 2:41 pm Gout February 28, 2025 2:41 pm Status post total right knee replacement March 19, 2025 1:21pm Chief Complaint Admit Date right knee February 09, 2025 10: 43am E-ORDER February 22, 2025 11:4 5am RIGHT KNEE February 23, 2025 2:15 pm GOUT ISSUES February 28, 2025 2:41 pm Right Total Knee Replacement Robotic Arm Assisted March 06, 2025 5:59am Right Total Knee Replacement Robotic Arm Assisted March 06, 2025 7:13am right knee March 19, 2025 1:2 1pm 6 M FU April 09, 2025 12:54 pm XRAY April 12, 2025 2:56p m right knee April 13, 2025 11:01 am RIGHT TOTAL KNEE POST-OP. RX HERE April 202024 1:30pm LEFT KNEE June 08, 2025 10:5 0am Reason for Visit Admit Date Knee pain, right February 09, 2025 10: 43am 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 09, 2025 10: 43am Gout February 09, 2025 10: 43am Knee pain, right February 23, 2025 2:15 pm 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 23, 2025 2:15 pm Bilateral foot pain February 28, 2025 2:41 pm Gout February 28, 2025 2:41 pm Status post total right knee replacement March 19, 2025 1:21pm Status post total right knee replacement April 09, 2025 12:54pm Gout April 09, 2025 12:54 pm Hypertension April 09, 2025 12:54 pm Orthopedic aftercare April 13, 2025 11:0 1am Status post total right knee replacement April 13, 2025 11:01am Left knee DJD June 08, 2025 10:5 0am Chief Complaint Admit Date LEFT KNEE June 08, 2025 10:5 0am Reason for Visit Admit Date Left knee DJD June 08, 2025 10:5 0am Additional Source Comments (unrecognized sect ion and content) No Status Records FoundNo Status Records FoundNo Status Records Found INFORMATION SOURCE (unrecogn ized section and content) DATE CREATED AUTHOR 05/18/2018 [facility] DATE CREATED AUTHOR AUTHOR'S ORGANIZ ATION 05/18/2018 [facility] DATE CREATED AUTHOR AUTHOR'S ORGANIZ ATION 09/08/2025 [place] [facility] Goals (unrecognized section and content) Goals may be documented in a n alternate sectionGoals may be documented in an alternate sectionGoals may be documented in an alternate sectionGoals may be documented in an alternate sectionGoals may be documented in an alternate sectionGoals may be documented in an alternate sectionGoals may be documented in an alternate sectionGoals may be documented in an alternate section Care Teams (unrecognized sec tion and content) Team Status: Active Member Role Status Dates Dr. Cate Sapp MD Primary Care Provider Active Team Status: Inactive Member Role Status Dates Dr. Cate Sapp MD Primary Care P rovider, Attending Provider, Referring Provider Active Team Status: Active Member Role Status Dates Dr. Cate Sapp MD Primary Care P rovider, Referring Provider, Other Provider Active Dr. Vipin Villegas MD Attending Provider Active Team Status: Inactive Member Role Status Dates Dr. Cate Sapp MD Primary Care Provider Active Jazmin Gonzalez Attending Provider, Referring Provide r Active Team Status: Inactive Member Role Status Dates Dr. Cate Sapp MD Primary Care Provider Active Start: October 09, 2024 End: October 09, 2024 Dr. Cate Sapp MD Attending Provider Active Start: October 09, 2024 End: October 09, 2024 Dr. Cate Sapp MD Referring Provider Active Start: October 09, 2024 End: October 09, 2024 Team Status: Inactive Member Role Status Dates Dr. Cate Sapp MD Primary Care Provider Active Start: October 09, 2024 End: October 09, 2024 Dr. Cate Sapp MD Attending Provider Active Start: October 09, 2024 End: October 09, 2024 Team Status: Inactive Member Role Status Dates Dr. Cate Sapp MD Primary Care Provider Active Start: December 04, 2024 End: December 04, 2024 Dr. Cate Sapp MD Referring Provider Active Start: December 04, 2024 End: December 04, 2024 Dr. Loyd Watters DO Attending Provider Active Start: December 04, 2024 End: December 04, 2024 Team Status: Inactive Member Role Status Dates Dr. Cate Sapp MD Primary Care Provider Active Start: December 04, 2024 End: December 04, 2024 Dr. Bennett Butler MD Attending Provider Active S tart: December 04, 2024 End: December 04, 2024 Team Status: Inactive Member Role Status Dates Dr. Cate Sapp MD Primary Care Provider Active Start: December 04, 2024 End: December 04, 2024 Dr. Loyd Watters DO Attending Provider Active Start: December 04, 2024 End: December 04, 2024 Dr. Loyd Watters DO Referring Provider Active Start: December 04, 2024 End: December 04, 2024 Team Status: Inactive Member Role Status Dates Dr. Cate Sapp MD Primary Care Provider Active Start: January 24, 2025 End: January 24, 2025 Dr. Cate Sapp MD Referring Provider Active Start: January 24, 2025 End: January 24, 2025 Dr. Loyd Watters DO Attending Provider Active Start: January 24, 2025 End: January 24, 2025 Team Status: Inactive Member Role Status Dates Dr. Cate Sapp MD Primary Care Provider Active Start: January 29, 2025 End: January 29, 2025 Dr. Cate Sapp MD Attending Provider Active Start: January 29, 2025 End: January 29, 2025 Dr. Cate Sapp MD Referring Provider Active Start: January 29, 2025 End: January 29, 2025 Team Status: Active Member Role Status Dates Dr. Cate Sapp MD Primary Care Provider Active Start: February 05, 2025 Dr. Loyd Watters DO Attending Provider Active Start: February 05, 2025 Dr. Loyd Watters DO Referring Provider Active Start: February 05, 2025 Team Status: Inactive Member Role Status Dates Dr. Cate Sapp MD Primary Care Provider Active Start: February 05, 2025 End: February 05, 2025 Dr. Loyd Watters DO Attending Provider Active Start: February 05, 2025 End: February 05, 2025 Dr. Loyd Watters DO Referring Provider Active Start: February 05, 2025 End: February 05, 2025 Team Status: Inactive Member Role Status Dates Dr. Cate Sapp MD Primary Care Provider Active Start: February 09, 2025 End: February 09, 2025 Dr. Cate Sapp MD Referring Provider Active Start: February 09, 2025 End: February 09, 2025 KASSI Hurley Attending Provider Active Start: February 09, 2025 End: February 09, 2025 Team Status: Inactive Member Role Status Dates Dr. Cate Sapp MD Primary Care Provider Active Start: February 22, 2025 End: February 22, 2025 Dr. Loyd Watters DO Attending Provider Active Start: February 22, 2025 End: February 22, 2025 Dr. Loyd Watters DO Referring Provider Active Start: February 22, 2025 End: February 22, 2025 Team Status: Inactive Member Role Status Dates Dr. Cate Sapp MD Primary Care Provider Active Start: February 23, 2025 End: February 23, 2025 Dr. Cate Sapp MD Referring Provider Active Start: February 23, 2025 End: February 23, 2025 KASSI Hurley Attending Provider Active Start: February 23, 2025 End: February 23, 2025 Team Status: Inactive Member Role Status Dates Dr. Cate Sapp MD Primary Care Provider Active Start: February 28, 2025 End: February 28, 2025 Dr. Cate Sapp MD Attending Provider Active Start: February 28, 2025 End: February 28, 2025 Dr. Cate Sapp MD Referring Provider Active Start: February 28, 2025 End: February 28, 2025 Team Status: Inactive Member Role Status Dates Dr. Cate Sapp MD Primary Care Provider Active Start: March 06, 2025 End: March 06, 2025 Dr. Loyd Watters DO Attending Provider Active Start: March 06, 2025 End: March 06, 2025 Dr. Loyd Watters DO Referring Provider Active Start: March 06, 2025 End: March 06, 2025 Team Status: Active Member Role Status Dates Dr. Cate Sapp MD Primary Care Provider Active Start: March 06, 2025 Dr. Loyd Watters DO Attending Provider Active Start: March 06, 2025 Dr. Loyd Watters DO Referring Provider Active Start: March 06, 2025 Dr. Loyd Watters DO Other Provider Active St art: March 06, 2025 Team Status: Inactive Member Role Status Dates Dr. Cate Sapp MD Primary Care Provider Active Start: March 19, 2025 End: March 19, 2025 Dr. Cate Sapp MD Referring Provider Active Start: March 19, 2025 End: March 19, 2025 Dr. Loyd Watters DO Attending Provider Active Start: March 19, 2025 End: March 19, 2025 Team Status: Active Member Role Status Dates Dr. Cate Sapp MD Primary Care Provider Active Start: April 06, 2025 Dr. Loyd Watters DO Attending Provider Active Start: April 06, 2025 Dr. Loyd Watters DO Referring Provider Active Start: April 06, 2025 Team Status: Inactive Member Role Status Dates Dr. Cate Sapp MD Primary Care Provider Active Start: April 09, 2025 End: April 09, 2025 Dr. Cate Sapp MD Attending Provider Active Start: April 09, 2025 End: April 09, 2025 Dr. Cate Sapp MD Referring Provider Active Start: April 09, 2025 End: April 09, 2025 Team Status: Active Member Role Status Dates Dr. Cate Sapp MD Primary Care Provider Active Start: April 09, 2025 Dr. Cate Sapp MD Attending Provider Active Start: April 09, 2025 Dr. Cate Sapp MD Referring Provider Active Start: April 09, 2025 Team Status: Active Member Role/Relationship Status Dates Dr. Cate Sapp MD Primary Care Provider Active Team Status: Inactive Member Role/Relationship Status Dates Dr. Cate Sapp MD Primary Care Provider Active Start: February 09, 2025 End: February 09, 2025 Dr. Cate Sapp MD Referring Provider Active Start: February 09, 2025 End: February 09, 2025 KASSI Hurley Attending Provider Active Start: February 09, 2025 End: February 09, 2025 Team Status: Inactive Member Role/Relationship Status Dates Dr. Cate Sapp MD Primary Care Provider Active Start: February 22, 2025 End: February 22, 2025 Dr. Loyd Watters DO Attending Provider Active Start: February 22, 2025 End: February 22, 2025 Dr. Loyd Watters DO Referring Provider Active Start: February 22, 2025 End: February 22, 2025 Team Status: Inactive Member Role/Relationship Status Dates Dr. Cate Sapp MD Primary Care Provider Active Start: February 23, 2025 End: February 23, 2025 Dr. Cate Sapp MD Referring Provider Active Start: February 23, 2025 End: February 23, 2025 KASSI Hurley Attending Provider Active Start: February 23, 2025 End: February 23, 2025 Team Status: Inactive Member Role/Relationship Status Dates Dr. Cate Sapp MD Primary Care Provider Active Start: February 28, 2025 End: February 28, 2025 Dr. Cate Sapp MD Attending Provider Active Start: February 28, 2025 End: February 28, 2025 Dr. Cate Sapp MD Referring Provider Active Start: February 28, 2025 End: February 28, 2025 Team Status: Inactive Member Role/Relationship Status Dates Dr. Cate Sapp MD Primary Care Provider Active Start: March 06, 2025 End: March 06, 2025 Dr. Loyd Watters DO Attending Provider Active Start: March 06, 2025 End: March 06, 2025 Dr. Loyd Watters DO Referring Provider Active Start: March 06, 2025 End: March 06, 2025 Team Status: Active Member Role/Relationship Status Dates Dr. Cate Sapp MD Primary Care Provider Active Start: March 06, 2025 Dr. Loyd Watters DO Attending Provider Active Start: March 06, 2025 Dr. Loyd Watters DO Referring Provider Active Start: March 06, 2025 Dr. Loyd Watters DO Other Provider Active St art: March 06, 2025 Team Status: Inactive Member Role/Relationship Status Dates Dr. Cate Sapp MD Primary Care Provider Active Start: March 19, 2025 End: March 19, 2025 Dr. Cate Sapp MD Referring Provider Active Start: March 19, 2025 End: March 19, 2025 Dr. Loyd Watters DO Attending Provider Active Start: March 19, 2025 End: March 19, 2025 Team Status: Inactive Member Role/Relationship Status Dates Dr. Cate Sapp MD Primary Care Provider Active Start: April 09, 2025 End: April 09, 2025 Dr. Cate Sapp MD Attending Provider Active Start: April 09, 2025 End: April 09, 2025 Dr. Cate Sapp MD Referring Provider Active Start: April 09, 2025 End: April 09, 2025 Team Status: Inactive Member Role/Relationship Status Dates Dr. Cate Sapp MD Primary Care Provider Active Start: April 09, 2025 End: April 09, 2025 Dr. Cate Sapp MD Attending Provider Active Start: April 09, 2025 End: April 09, 2025 Dr. Cate Sapp MD Referring Provider Active Start: April 09, 2025 End: April 09, 2025 Team Status: Inactive Member Role/Relationship Status Dates Dr. Cate Sapp MD Primary Care Provider Active Start: April 12, 2025 End: April 12, 2025 Dr. Bennett Butler MD Attending Provider Active S tart: April 12, 2025 End: April 12, 2025 Team Status: Inactive Member Role/Relationship Status Dates Dr. Cate Sapp MD Primary Care Provider Active Start: April 13, 2025 End: April 13, 2025 Dr. Cate Sapp MD Referring Provider Active Start: April 13, 2025 End: April 13, 2025 Dr. Loyd Watters DO Attending Provider Active Start: April 13, 2025 End: April 13, 2025 Team Status: Active Member Role/Relationship Status Dates Dr. Cate Sapp MD Primary Care Provider Active Start: April 20, 2025 Dr. Loyd Watters DO Attending Provider Active Start: April 20, 2025 Dr. Loyd Watters DO Referring Provider Active Start: April 20, 2025 Team Status: Inactive Member Role/Relationship Status Dates Dr. Cate Sapp MD Primary Care Provider Active Start: June 08, 2025 End: June 08, 2025 Dr. Cate Sapp MD Referring Provider Active Start: June 08, 2025 End: June 08, 2025 Dr. Loyd Watters DO Attending Provider Active Start: June 08, 2025 End: June 08, 2025 Team Status: Active Member Role/Relationship Status Dates Dr. Cate Sapp MD Primary care physician Activ uday Team Status: Inactive Member Role/Relationship Status Dates Dr. Cate Sapp MD Primary care physician Activ uday Start: June 08, 2025 End: June 08, 2025 Dr. Cate Sapp MD Referring Provider Active Start: June 08, 2025 End: June 08, 2025 Dr. Loyd Watters DO Attending physician Active Start: June 08, 2025 End: June 08, 2025 FOR RECORDS PERTAINING TO PATIENTS WHO ARE OR HAVE BEEN ENROLLED IN A CHEMICAL DEPENDENCY/SUBSTANCEABUSE PROGRAM, SOME INFORMATION MAY BE OMITTED. This clinical summary was aggregated from multiple sources. Caution should be exercised in using it in the provision of clinical care. This summary normalizes information from multiple sources, and as a consequence, information in this document may materially change the coding, format and clinical context of patient data. In addition, data may be omitted in some cases. CLINICAL DECISIONS SHOULD BE BASED ON THE PRIMARY CLINICAL RECORDS. [employer] provides no warranty or guarantee of the accuracy or completeness of information in this document.
== END | disposition home or self-care (01) ==
PROVIDERS: PCP Internal Medicine; Referring Provider Orthopaedic Surgery; Visit Provider Orthopaedic Surgery
DX: M17.12 Unilateral primary osteoarthritis, left knee (principal)
CPT/HCPCS: 73700